=== PATIENT | female | born 1960 | race Caucasian/White ===

== ENCOUNTER 2022-06-08 10:01 | Outpatient (CLI) | payer BC, SELFPAY ==
[2022-06-08 10:24] LABS: Basophils Absolute Auto 0.08 K/mm3 (0.00-0.10); Eosinophils Absolute Auto 0.07 K/mm3 (0.02-0.50); Eosinophils Percent Auto 0.9 % (1.0-6.0); Hematocrit 40.4 % (35.0-49.0); Hemoglobin 13.4 g/dL (12.0-15.0); Immature Granulocyte Absolute 0.05 K/mm3 (0.00-0.00); Immature Granulocyte Percent A 0.6 % (0.0-0.0); Lymphocytes Absolute Auto 1.82 K/mm3 (1.10-4.50); Lymphocytes Percent Auto 22.5 % (18.0-42.0); Mean Corpuscular HGB Conc 33.2 g/dL (32.0-36.0); Mean Corpuscular Hemoglobin 30.2 pg (27.0-31.0); Mean Corpuscular Volume 91.2 fL (78.0-102.0); Mean Platelet Volume 9.2 fl (9.2-11.8); Monocytes Absolute Auto 0.62 K/mm3 (0.10-0.90); Monocytes Percent Auto 7.7 % (2.0-11.0); Neutrophils Absolute Auto 5.5 K/mm3 (1.7-7.2); Neutrophils Percent Auto 67.3 % (50.0-70.0); Platelet Count Result 409 K/mm3 (150-420); Red Blood Count 4.43 M/mm3 (4.20-5.40); Red Cell Distribution Width 12.3 % (11.6-14.4); White Blood Count 8.1 K/mm3 (4.8-10.8)
[2022-06-08 11:27] LABS: Alanine Aminotransferase 28 U/L (14-59); Albumin Level 3.8 g/dL (3.4-5.0); Alkaline Phosphatase 70 U/L (46-116); Anion Gap 10 mmol/L (8-16); Aspartate Amino Transferase 23 U/L (15-37); Bilirubin,Total 0.5 mg/dL (0.00-1.00); Blood Urea Nitrogen 15 mg/dL (7-18); Calcium 9.4 mg/dL (8.5-10.1); Carbon Dioxide 27 mmol/L (21-32); Chloride 100 mmol/L (98-108); Creatine Kinase 66 U/L (26-192); Estimated Glomerular Filt Rate > 60; Glucose 77 mg/dL (70-99); Osmolality Calculated 283 mOsm/kg (285-295); Potassium 4.8 mmol/L (3.5-5.1); Sodium 137 mmol/L (136-145); Troponin I 6.4 ng/L (0.00-60.4)
== END 2022-06-08 10:02 | disposition home or self-care (01) ==
PROVIDERS: PCP Internal Medicine; Visit Provider Internal Medicine
DX: R07.9 Chest pain, unspecified (principal)
CPT/HCPCS: 36415; 80053; 82550; 82553; 84484; 85025

== ENCOUNTER 2023-06-22 12:18 | Outpatient (CLI) | payer MEDICARE, SELFPAY ==
--- NOTE | 2023-06-22 12:37 | ECG_ITS ---
Measurements Intervals [facility] Rate: 71 P: 62 WI: 188 QRS: 3 QRSD: 119 T: 9 QT: 401 QTc: 438 Interpretive Statements SINUS RHYTHM MODERATE INTRAVENTRICULAR CONDUCTION DELAY [110+ ms QRS DURATION] MINIMAL VOLTAGE CRITERIA FOR LVH, CONSIDER NORMAL VARIANT [MEETS CRITERIA IN ONE OF: R(aVL), S(V1), R(V5), R(V5/V6)+S(V1)] NO PREVIOUS ECG AVAILABLE FOR COMPARISON Electronically Signed On 06-22-2023 14:04:48 CDT by Macy Jones M.D.
[2023-06-22 13:04] LABS: Anion Gap 7 mmol/L (8-16); Blood Urea Nitrogen 17 mg/dL (7-18); Calcium 9.7 mg/dL (8.5-10.1); Carbon Dioxide 30 mmol/L (21-32); Chloride 99 mmol/L (98-108); Estimated Glomerular Filt Rate > 60; Glucose 90 mg/dL (70-99); Osmolality Calculated 283 mOsm/kg (285-295); Potassium 4.9 mmol/L (3.5-5.1); Sodium 136 mmol/L (136-145)
== END 2023-06-22 12:19 | disposition home or self-care (01) ==
PROVIDERS: Orthopaedic Surgery; PCP Internal Medicine
DX: Z01.818 Encounter for other preprocedural examination (principal); I49.8 Other specified cardiac arrhythmias; I45.89 Other specified conduction disorders; I10 Essential (primary) hypertension; R94.31 Abnormal electrocardiogram [ECG] [EKG]
CPT/HCPCS: 36415; 80048; 93005

== ENCOUNTER 2023-08-29 14:44 | Outpatient (CLI) | payer MEDICARE, SELFPAY ==
--- NOTE | ~2023-08-29 | CT_ITS ---
EXAMINATION: CT LE LT wo con DATE: 08/29/2023 15:19 INDICATION: Left knee osteoarthritis. Preop planning. TECHNIQUE: Computed tomography (CT) of the left lower limb was performed without intravenous contrast . Automated exposure control and iterative reconstruction technique were employed. The dose-length pr oduct was 1792.19 mGy-cm. COMPARISON: Left knee radiographs 08/24/2023 FINDINGS: Bone alignment is normal. No fracture. There is mild left hip osteoarthritis. Left knee dem onstrates severe osteoarthritis of the medial and patellofemoral compartments and moderate osteoarthr itis of lateral compartment. There is a moderate-sized knee joint effusion with loose bodies. There i s polyarticular osteoarthritis of the foot, severe at talonavicular joint. IMPRESSION: 1. Severe left knee osteoarthritis. 2. Moderate-sized left knee joint effusion with loose bodies. Reviewed, dictated and finalized at location E.
== END 2023-08-29 14:45 | disposition home or self-care (01) ==
PROVIDERS: PCP Internal Medicine; Visit Provider Orthopaedic Surgery
DX: M17.12 Unilateral primary osteoarthritis, left knee (principal); M25.462 Effusion, left knee
CPT/HCPCS: 73700

== ENCOUNTER 2023-08-30 11:36 | Outpatient (CLI) | payer MEDICARE, SELFPAY ==
[2023-08-30 11:59] LABS: Urine Cotinine NEGATIVE (Negative)
[2023-08-30 12:03] LABS: Basophils Absolute Auto 0.07 K/mm3 (0.00-0.10); Basophils Percent Auto 0.9 % (0.0-1.0); Eosinophils Absolute Auto 0.06 K/mm3 (0.02-0.50); Eosinophils Percent Auto 0.7 % (1.0-6.0); Hematocrit 38.6 % (35.0-42.0); Hemoglobin 12.9 g/dL (11.7-13.8); Immature Granulocyte Absolute 0.03 K/mm3 (0.00-0.00); Immature Granulocyte Percent A 0.4 % (0.0-0.0); Immature Platelet Fraction Pct 3.4 % (1.0-7.0); Lymphocytes Absolute Auto 1.68 K/mm3 (1.10-4.50); Lymphocytes Percent Auto 20.8 % (18.0-42.0); Mean Corpuscular HGB Conc 33.4 g/dL (32.0-36.0); Mean Corpuscular Hemoglobin 30.4 pg (27.0-31.0); Mean Platelet Volume 10.4 fl (9.2-11.8); Monocytes Absolute Auto 0.78 K/mm3 (0.10-0.90); Monocytes Percent Auto 9.7 % (2.0-11.0); Neutrophils Absolute Auto 5.4 K/mm3 (1.7-7.2); Neutrophils Percent Auto 67.5 % (50.0-70.0); Platelet Count Result 230 K/mm3 (150-420); Red Blood Count 4.24 M/mm3 (4.20-5.40); Red Cell Distribution Width 13.4 % (11.6-14.4); White Blood Count 8.1 K/mm3 (4.8-10.8)
[2023-08-30 12:07] LABS: Appearance Urine Clear (Clear); Bilirubin Urine Negative (Negative); Blood Urine Negative (Negative); Color Urine Yellow (Yellow); Glucose Urine UA Negative (Negative); Ketones Urine Negative (Negative); Leukocyte Esterase Ur Trace (Negative); Nitrate Urine Negative (Negative); Protein Urine Negative (Negative); Urobilinogen Urine 0.2 mg/dL (0.2-1.0)
[2023-08-30 12:18] LABS: Add Urine Microscopic? YES; Bacteria Urine 2+ /hpf; RBC Urine None seen /hpf (0-2); Squamous Epithelial Cell Urine Moderate /hpf (Few); WBC Urine 0-5 /hpf (0-3)
[2023-08-30 12:19] LABS: Mucus Urine Moderate /lpf
[2023-08-30 13:19] LABS: Alanine Aminotransferase 24 U/L (14-59); Albumin Level 3.7 g/dL (3.4-5.0); Alkaline Phosphatase 76 U/L (46-116); Anion Gap 9 mmol/L (8-16); Aspartate Amino Transferase 26 U/L (15-37); Bilirubin,Total 0.8 mg/dL (0.00-1.00); Blood Urea Nitrogen 14 mg/dL (7-18); Calcium 9.6 mg/dL (8.5-10.1); Carbon Dioxide 27 mmol/L (21-32); Chloride 97 mmol/L (98-108); Cholesterol 246 mg/dL (0-200); Estimated Glomerular Filt Rate > 60; Glucose 83 mg/dL (70-99); HDL Direct 122 mg/dL (40-60); LDL Cholesterol Calculated 115 mg/dL (<130); Osmolality Calculated 275 mOsm/kg (285-295); Sodium 133 mmol/L (136-145); Thyroid Stimulating Hormone 1.42 uIU/mL (0.36-3.74); Total Protein 7.2 g/dL (6.4-8.2); Triglycerides 43 mg/dL (0-150)
== END 2023-08-30 11:37 | disposition home or self-care (01) ==
LOC: CHSLAB 11:38
PROVIDERS: PCP Internal Medicine; Visit Provider Orthopaedic Surgery
DX: Z01.818 Encounter for other preprocedural examination (principal); M54.16 Radiculopathy, lumbar region; M17.12 Unilateral primary osteoarthritis, left knee; I10 Essential (primary) hypertension; E78.5 Hyperlipidemia, unspecified
CPT/HCPCS: 80053; 80061; 80307; 81001; 84443; 85025; 85055

== ENCOUNTER 2023-09-06 15:38 | Outpatient (CLI) | payer MEDICARE, SELFPAY ==
--- NOTE | ~2023-09-06 | XR_ITS ---
Right Knee Technique: AP, lateral, and sunrise views were obtained. Clinical History: Pain Findings: No fracture or dislocation is seen. Osseous alignment is anatomic. Moderate tricompartmenta l degenerative spurring is present. There are probable small loose bodies at the posterior aspect of the knee. Moderate joint effusion is seen. Impression: Moderate tricompartmental degenerative change, with probable small posterior loose bodies and moderat e joint effusion. Reviewed, dictated and finalized at location M. 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
== END 2023-09-06 15:39 | disposition home or self-care (01) ==
PROVIDERS: PCP Internal Medicine; Visit Provider Internal Medicine
DX: M25.561 Pain in right knee (principal)
CPT/HCPCS: 73562

== ENCOUNTER 2023-11-07 09:58 | Outpatient (CLI) | payer MEDICARE, SELFPAY ==
[2023-11-07 11:17] LABS: Basophils Absolute Auto 0.1 K/mm3 (0.0-0.1); Basophils Percent Auto 0.7 % (0.2-1.2); Eosinophils Absolute Auto 0.1 K/mm3 (0-0.3); Eosinophils Percent Auto 1.2 % (0-4.4); Hematocrit 41.1 % (37.0-47.0); Hemoglobin 13.1 g/dL (12.0-15.0); Immature Granulocyte Absolute 0.02 K/mm3 (0.00-0.031); Immature Granulocyte Percent A 0.2 % (0-0.5); Lymphocytes Absolute Auto 2.27 K/mm3 (0.9-3.2); Lymphocytes Percent Auto 26.2 % (18.3-44.2); Mean Corpuscular HGB Conc 31.9 g/dl (32-36); Mean Corpuscular Hemoglobin 29.3 pg (26-34); Mean Corpuscular Volume 91.9 fl (80-100); Mean Platelet Volume 9.1 fl (7.4-10.4); Monocytes Absolute Auto 0.8 K/mm3 (0.1-0.6); Monocytes Percent Auto 9.1 % (2.6-8.5); Neutrophils Absolute Auto 5.4 K/mm3 (1.3-6.7); Neutrophils Percent Auto 62.6 % (45.5-73.1); Platelet Count Result 374 k/mm3 (150-375); Red Blood Count 4.47 M/mm3 (4.2-5.4); Red Cell Distribution Width 12.4 % (11.5-14.5); White Blood Count 8.7 K/mm3 (4.5-10.0)
[2023-11-07 11:26] LABS: Albumin Level 4.5 g/dL (3.5-5.1); Estimated Glomerular Filt Rate > 60; Glucose 93 mg/dL (65-110); Urine Cotinine NEGATIVE
[2023-11-07 11:51] LABS: Hemoglobin A1C 5.2 % (<5.7)
== END 2023-11-07 09:59 | disposition home or self-care (01) ==
LOC: ANHSURGERY 10:04
PROVIDERS: PCP Internal Medicine; Visit Provider Orthopaedic Surgery
DX: Z01.818 Encounter for other preprocedural examination (principal); M17.12 Unilateral primary osteoarthritis, left knee
CPT/HCPCS: 80307; 82040; 82565; 82947; 83036; 85025; 87081

== ENCOUNTER 2023-11-24 00:20 | Day surgery (SDC) | payer MEDICARE, SELFPAY ==
[2023-11-07 10:22] VITALS: BP 148/67; PULSE 62; RESP 16; TEMP 36.8; O2SAT 99; BMI 27.3
--- NOTE | 2023-11-07 10:38 | PC.NURSE ---
Report to the Outpatient Waiting Room, entrance under the green pavilion located off [facility], at time __6:00AM on date _11/24/23 . Planned Procedure Time: __7:30AM . Time changes happen often and if your time is changed the preop area will call you the afternoon before. - You and your visitor will be asked to self-screen and do not enter if you have any COVID symptoms. - A mask is optional within the hospital at this time. Patients may have clear liquids (water, carbonated beverages, clear teas, apple juice) until 3 hours prior to surgery with a maximum of 20 ounces. - No food from midnight until time of surgery. Take the following medications with a SIP of water the morning of surgery: ___VERAPAMIL, HYDROCODONE NEEDED DO NOT STOP ANY OF YOUR OTHER PRESCRIPTION MEDICATIONS PRIOR TO SURGERY ?EXCEPT THE FOLLOWING Medications to discontinue per physician ____HOLD NSAIDS(IBUPROFEN) AND VITAMINS/SUPPLEMENTS 7 DAYS PRE-OP PER DR DAN- LAST DOSE 11/16/23 Please no make-up, nail scottish, hairspray, perfume, deodorant, or body powder the day of surgery. No jewelry (including any body piercings) or valuables the day of surgery, leave them at home. Please take a shower or bath the night before, or the morning of, surgery with an antibacterial soap. Wear comfortable, loose fitting clothing. Children are encouraged to wear pajamas. - Jewelry must be removed prior to entering the operating room. Rings and piercings that are not removed may be cut off. - The hospital will not accept responsibility for valuables. - Please leave all valuables, including medications, at home the day of surgery. If you are going home after surgery, a licensed local [place] truck driver must drive you home. - NO public transportation without another adult if you receive anesthesia. - We recommend that an adult stay with you for 24 hours following discharge. - We also recommend that you do not drive, make important decision, drink alcoholic beverages, or take any drugs that were not prescribed by your health care provider for at least 24 hours after your discharge time. Follow any additional instructions given to you from your surgeon. If you or anyone in your household have experienced Covid symptoms in the past week, please notify your surgeon or the nurse liaison at the phone number below for possible testing. Telephone instructions given to _PATIENT and asked if any additional questions and then verbalized understanding. Patient advised to call surgeon office or pre surgery nurse liaison [phone] if any additional questions.
--- NOTE | 2023-11-23 13:32 | WPDANESEPPF ---
Anes - Initial Pre Proc Eval Procedure: Operation Date: 11/24/23 07:30 Proposed Procedures p Left Custom Total Knee Arthroplasty - Henry Hurtado MD Date/Time: 11/23/23 13:32 Surgeon: Henry Hurtado MD Pre Op Diagnosis: Prim O A Lt Knee Patient Data Age: 63 Gender: F Height: 1.58 m Weight: 68.5 kg Last Vital Signs Temp 36.8 C 11/07/23 10:22 Pulse 62 11/07/23 10:22 Resp 16 11/07/23 10:22 BP 148/67 H 11/07/23 10:22 Pulse Ox 99 11/07/23 10:22 O2 Del Method Room Air 11/07/23 10:22 Allergies Allergy/AdvReac Type Severity Reaction Status Date / Time quinine AdvReac Severe CHILLS, Verified 11/24/23 06:53 NAUSEA AND VOMITING Contrast Media Allergy Severe ANAPHYLAXIS Uncoded 11/24/23 06:53 duloxetine AdvReac Nausea Uncoded 11/24/23 06:53 Home Medications Medication Instructions Recorded Confirmed Type acyclovir 200 mg capsule 400 mg PO BID PRN Outbreak 08/11/23 11/07/23 History atenolol 50 mg tablet 50 mg PO HS 08/11/23 11/07/23 History atorvastatin 10 mg tablet 10 mg PO HS 08/11/23 11/07/23 History ibuprofen 200 mg capsule 800 mg PO Q6H PRN Pain 08/11/23 11/07/23 History magnesium oxide 400 mg PO BID 08/11/23 11/07/23 History omeprazole 40 mg capsule,delayed 40 mg PO BID 08/11/23 11/07/23 History release verapamil 120 mg 24 hr 120 mg PO QAM 08/11/23 11/24/23 History capsule,extended release zolpidem 10 mg tablet 10 mg PO HS 08/11/23 11/07/23 History hydrocodone 5 mg-acetaminophen 325 1 tablet PO Q8H PRN Pain 11/07/23 11/07/23 History mg tablet Patient hx anesthesia problems: post op nausea/vomiting Family hx anesthesia problems: none Results Review: All pre-operative results and documents have been reviewed as part of the pre-operative evaluation. [facility] Past Medical History Medical History (Updated 11/23/23 @ 13:33 by Geoffrey Coley DO) Anesthesia complication issues with waking up from general anesthesia previously Cervical vertebral fusion DVT (deep venous thrombosis) History of blood clots History of bruising easily History of gastric ulcer History of stress test Hyperlipidemia Hypertension Nondisplaced fracture of neck of right radius TYE (obstructive sleep apnea) Surgical History Surgical History (Updated 11/23/23 @ 13:33 by Geoffrey Coley DO) H/O cervical discectomy History of arthroscopy of left knee History of laminectomy History of lumbar fusion History of tubal ligation Hx laparoscopic cholecystectomy Family History Family History Father Hypertension Cerebrovascular accident Hyperlipidemia Peripheral vascular disease Hemiballismus Mother Hyperlipidemia Hypertension Osteoarthritis Sibling Hypertension Hyperlipidemia Asthma Anxiety Social History Social History (Updated 11/07/23 @ 14:18 by Teresita Victoria MA) Smoking status: Never smoker Alcohol intake: current Drinks per week: 3 Substance use: never Substance use type: does not use Do You Feel Safe in your Home?: Yes Lack of Transportation: YES Lack of Food: Never True Current Housing: I Have Housing Concerned About Future Housing: No Difficulty Paying Gas/Electric Bills: No Difficulty Paying for Meds: No Currently Unemployed: No Education: High School Diploma/GED Difficulty w/ Childcare or Family Care: No Living arrangements: with family Additional living arrangements comments: [place] Spiritual care concerns: No Anes - Eval Final PreProcedure Day of Procedure 11/23/23 13:32 Patient weight: overweight Heart: regular rate and rhythm Lungs: clear to auscultation Airway: Mallampati scale class II Neurological: alert and oriented Last oral intake: >/= 8 hours ASA classification: III Emergent: no Anesthetic plan: proceed Anesthesia type and monitoring: general LMA and standard monitoring Results Review: All pre-operative resu
[2023-11-24] VITALS (18 sets, daily range): BP systolic 130–164; BP diastolic 53–78; PULSE 55–80; RESP 11–16; TEMP 36.2–37.1; O2SAT 91–100
--- NOTE | ~2023-11-24 | XR_ITS ---
EXAMINATION: [id number] DATE: 11/24/2023 10:00 INFECTIOUS DISEASE PHYSICIAN INDICATION: Left knee arthroplasty TECHNIQUE: 2 views left knee FINDINGS: There is a left total knee arthroplasty in expected position. Subcutaneous gas with fluid and air in the joint and overlying skin chito are consistent with recent surgery. No evidence of pe riprosthetic fracture. IMPRESSION: 1. Recent left total knee arthroplasty. Reviewed, dictated and finalized at location L. CTIOUS DISEASE PHYSICIAN
[2023-11-24] MEDS: ACETAMINOPHEN 500 MG TABLET 1000 MG PO ×3 (06:35→18:10)
[2023-11-24] MEDS: LACTATED RINGERS 1,000 ML 30 ML IV CONT ×2 (06:35→09:44)
[2023-11-24] MEDS: TRANEXAMIC ACID 1,000MG/ISO100 1,000 MG/100 ML BAG 200 MG IVPB (06:35)
--- NOTE | 2023-11-24 07:17 | WPDHPUPDATE1 ---
History and Physical Update Update Date/Time: 11/24/23 07:17 History and Physical has been reviewed, including an updated exam of the patient. There are NO changes in the patient's condition. Risks, benefits, and alternatives have been discussed and questions answered. Patient agrees to proceed with procedure.
[2023-11-24] MEDS: ceFAZolin 2 GM/D5W 50 ML 2 GM/50 ML BAG IVPB ×2 (07:26→16:53)
--- NOTE | 2023-11-24 07:29 | WPDANESPNB ---
Anes - Peripheral Nerve Block Date/Time: 11/24/23 07:29 I have discussed with the patient/family/POA the placement of a peripheral nerve block for post-operative pain management, including associated risks, benefits, complications, and side effects. Alternative methods of post-operative analgesia were detailed. Questions were solicited and answers provided to the satisfaction of the patient/family/POA. Time-Out: A pre-procedural Time-Out was completed immediately before starting the procedure and confirmed: Patient Identification, Site, Procedure, Patient Position and the Availability of Requisite Equipment. Clinical Indications: Acute post-operative pain management requested by the operative surgeon. Nerve Block Insertion Note Anes-nerve block: adductor canal left Patient position: supine Skin prep: chlorhexidine Needle: 22 gauge, stimulating, insulated echogenic needle. Needle length: 80 mm Technique: ultrasound Injectate: bupivacaine 0.5% with epi 5 mcg/ml (30cc - no epi) Observations: tolerated well Complications: none Procedure start time:: 715 Procedure end time:: 719
[2023-11-24] MEDS: GENTAMICIN BONE CEMENT REFOBACIN 1 EACH TOPICAL (08:45)
--- NOTE | 2023-11-24 09:34 | W.PM.PROC2 ---
Procedure Note - Detailed Date of Procedure 11/24/23 Pre-op Diagnosis Prim O A Lt Knee Post-op Diagnosis Same Procedure Performed Left total knee arthroplasty. Surgeon Henry Hurtado MD Anesthesia General and Regional (Subsartorial block.) Description of Procedure Preoperative antibiotics were given. The limb was prepped and draped in the usual sterile fashion with a well-padded tourniquet high on the thigh. The limb was exsanguinated and the tourniquet inflated to 300 mmHg. A longitudinal incision was created just medial to the patella. A trivector approach to the knee was performed. Arthrotomy was taken down through the joint capsule. No significant releases were initially taken. The femur was exposed and the F1 jig was applied. The coring tool was used to remove the cartilage for the F2 jig to sit flush with the bone. The jig was pinned and the distal cut carefully taken. Caliper measurements confirmed appropriate bony resections according to the preoperative templated plan. The F4 cutting jig for the femur was applied, at the standard rotation. The AP and anterior chamfer cuts were taken. The F5 jig was applied and the posterior chamfer cuts were taken. The tibia was prepared using the T1 jig, after removing cartilage for the jig contact points. Proper alignment was checked with the alignment justin. The tibia was cut using the T1u guide. Gap balancing was performed. Gap measurements were taken and the knee was trialed. Excellent alignment and soft tissue balancing was confirmed. The posterior cruciate ligament was recessed along the proximal tibia. The patella was cut for resurfacing. Three lug holes were drilled. Meniscal remnants were removed. The trial components were assembled. Excellent range of motion and proper soft tissue balancing were confirmed throughout the full range of motion. Patellar tracking was excellent. The knee was copiously irrigated periodically throughout the procedure. The real implants were cemented into position. Excess cement was carefully removed. The wound was closed in layers with interrupted #1 Vicryl suture, #2 strata fix suture, 2-0 strata fix suture, 3-0 strata fix suture. Steri-Strips placed on the skin with the knee flexed. Sterile bulky dressing applied. The patient was brought to the recovery room in stable condition. There were no complications. Implants [employer] total knee arthroplasty. Cemented. Cruciate retaining. 7 mm insert. 32 mm round patella. Estimated Blood Loss 50 Tourniquet Time Total Tourniquet Time: 72 Drains No Complications No immediate complications Condition Stable Disposition PACU [facility] Billing Surgery - Charge Forward: Surgery Billing
[2023-11-24] MEDS: fentaNYL CITRATE INJ (*CRX) 100 MCG/2 ML VIAL 25 MCG IV PUSH (10:00)
--- NOTE | 2023-11-24 11:49 | ADMGEN ---
This patient, Dayana Hudson, was admitted to 2 Medical Room 259-01. Patient/family oriented to hospital policies and general routines including ID bracelet, bed and alarms, visiting hours, pain management, procedures, bathroom and other care routines, personal items, smoking policy, room service/diet, and visiting hours. Information on how to activate the Rapid Response Team has been discussed. Patient/Family are encouraged to report perceived risks to care and to ask questions if they do not understand what they are told or what they should do.
[2023-11-24] MEDS: PANTOPRAZOLE 40 MG TABLET PO ×2 (12:52→20:48)
[2023-11-24] MEDS: MAGNESIUM OXIDE 400 MG TABLET PO ×2 (12:52→16:52)
[2023-11-24] MEDS: SENNA/DOCUSATE SODIUM TABLET 2 TAB PO ×2 (12:53→16:52)
[2023-11-24] MEDS: FAMOTIDINE 20 MG TABLET PO ×2 (12:53→20:48)
[2023-11-24] MEDS: oxyCODONE HCL (*CRX) 5 MG TAB IR 10 MG PO (12:54)
[2023-11-24] MEDS: polyethylene glycoL 3350 17 GM POWD.PACK PO (12:55)
[2023-11-24] MEDS: MELOXICAM 7.5 MG TABLET PO ×2 (12:55→16:53)
[2023-11-24] MEDS: ONDANSETRON INJ 4 MG/2 ML VIAL IV PUSH ×2 (15:41→20:30)
[2023-11-24] MEDS: oxyCODONE HCL (*CRX) 5 MG TAB IR PO ×2 (17:01→20:49)
[2023-11-24] MEDS: ZOLPIDEM TARTRATE (*CRX) 5 MG TABLET 10 MG PO (20:47)
[2023-11-24] MEDS: atenoloL 50 MG TABLET PO (20:48)
[2023-11-24] MEDS: ATORVASTATIN 10 MG TABLET PO (20:48)
[2023-11-25] MEDS: ceFAZolin 2 GM/D5W 50 ML 2 GM/50 ML BAG IVPB ×2 (00:01→08:47)
[2023-11-25 04:00] VITALS: BP 138/57; PULSE 72; RESP 14; TEMP 36.6; O2SAT 96
[2023-11-25 05:42] LABS: Basophils Percent Auto 0.1 % (0.2-1.2); Eosinophils Percent Auto 0.1 % (0-4.4); Hematocrit 32.7 % (37.0-47.0); Hemoglobin 10.6 g/dL (12.0-15.0); Immature Granulocyte Absolute 0.05 K/mm3 (0.00-0.031); Immature Granulocyte Percent A 0.4 % (0-0.5); Lymphocytes Absolute Auto 2.05 K/mm3 (0.9-3.2); Lymphocytes Percent Auto 14.7 % (18.3-44.2); Mean Corpuscular HGB Conc 32.4 g/dl (32-36); Mean Corpuscular Hemoglobin 29.3 pg (26-34); Mean Corpuscular Volume 90.3 fl (80-100); Mean Platelet Volume 9.5 fl (7.4-10.4); Monocytes Absolute Auto 1.1 K/mm3 (0.1-0.6); Neutrophils Absolute Auto 10.7 K/mm3 (1.3-6.7); Neutrophils Percent Auto 76.7 % (45.5-73.1); Platelet Count Result 297 k/mm3 (150-375); Red Blood Count 3.62 M/mm3 (4.2-5.4); Red Cell Distribution Width 12.3 % (11.5-14.5); White Blood Count 13.9 K/mm3 (4.5-10.0)
[2023-11-25] MEDS: ACETAMINOPHEN 500 MG TABLET 1000 MG PO ×2 (05:56)
[2023-11-25 06:17] LABS: Anion Gap 4 mmol/L (8-16); Blood Urea Nitrogen 16 mg/dL (7-17); Calcium 8.5 mg/dL (8.4-10.2); Carbon Dioxide 24 mmol/L (22-30); Chloride 103 mmol/L (98-107); Estimated CRCL calculation 63 ml/min; Estimated Glomerular Filt Rate > 60; Glucose 105 mg/dL (65-110); Sodium 131 mmol/L (137-145)
[2023-11-25] MEDS: SENNA/DOCUSATE SODIUM TABLET 2 TAB PO (08:44)
[2023-11-25] MEDS: MAGNESIUM OXIDE 400 MG TABLET PO (08:44)
[2023-11-25] MEDS: VERAPAMIL HCL ER 120 MG TABLET PO (08:44)
[2023-11-25] MEDS: predniSONE 5 MG TABLET PO (08:45)
[2023-11-25] MEDS: FAMOTIDINE 20 MG TABLET PO (08:45)
[2023-11-25] MEDS: PANTOPRAZOLE 40 MG TABLET PO (08:45)
[2023-11-25] MEDS: APIXABAN 2.5 MG TABLET PO (08:45)
[2023-11-25] MEDS: MELOXICAM 7.5 MG TABLET PO (08:46)
[2023-11-25] MEDS: polyethylene glycoL 3350 17 GM POWD.PACK PO (08:47)
--- NOTE | 2023-11-25 08:54 | PM.DS ---
DS: Admitting Diagnosis Discharge Date 11/25/23 Admitting Diagnosis OA knee Left DS: Discharge Diagnosis Discharge Diagnosis (1) Status post total left knee replacement: Code(s): Z96.652 - Presence of left artificial knee joint Status: Acute Assessment and Plan: Postop day 1: Left total knee arthroplasty. Patient tolerated procedure well. No complications. Pain manageable with pain medication. No numbness or tingling. We had a lengthy discussion regarding postoperative wound care, limitations, expectations, and exercises. Patient shows good understanding. She has had initial physical therapy and is tolerating it well. DVT prophylaxis: Patient is high risk for blood clot. Will start patient on Elliquis for 1 month. 2.5 mg BID for 2 weeks then 5 mg BID for 2 weeks. Compression socks. Frequent walks. Pain medication: Percocet. Prednisone. Meloxicam. Nausea: Zofran. Extended Antibiotic: Keflex Patient has followup appointment with Dr. Hurtado in 3 weeks. DS: Summary Hospital Course Reason for hospitalization: Total knee arthroplasty Hospital Course: Patient tolerated procedure well. Has had initial PT/OT. Status at Discharge Functional status at discharge: uses cane/walker Overall status at discharge: patient is progressing back to baseline Time Spent with Patient Time attestation: Total time spent providing and/or coordinating discharge services: Exam Narrative: 63-year-old overweight female. Resting comfortably in chair. Alert and oriented x3. No acute distress. Wearing compression socks bilaterally. Dressing intact without drainage. Mild swelling. No ecchymosis. No erythema. No hematoma. Range of motion limited due to pain. Calf nontender. Neurologic status intact. No varicosities. Distal pulses palpable. DS: Data Data Completed and Pending Labs on day of discharge: Labs from last 24 hours 11/25/23 05:02 WBC 13.9 H RBC 3.62 L Hgb 10.6 L Hct 32.7 L MCV 90.3 MCH 29.3 MCHC 32.4 RDW 12.3 Plt Count 297 MPV 9.5 Immature Gran % (Auto) 0.4 Neut % (Auto) 76.7 H Lymph % (Auto) 14.7 L [place] % (Auto) 8.0 Eos % (Auto) 0.1 Baso % (Auto) 0.1 L Lymph # (Auto) 2.05 [place] # (Auto) 1.1 H Eos # (Auto) 0.0 Baso # (Auto) 0.0 Abs Immat Gran (auto) 0.05 H Absolute Neuts (auto) 10.7 H Absolute Nucleated RBC 0.0 Nucleated RBC % 0.0 Sodium 131 L Potassium 4.0 Chloride 103 Carbon Dioxide 24 Anion Gap 4 L BUN 16 Creatinine 0.70 Estim Creat Clear Calc 63 Estimated GFR > 60 Glucose 105 Calcium 8.5 Discharge Plan Discharge Patient Disposition: Home, Self-Care Discharge Instructions: See green instruction sheets Stand Alone Forms: General Discharge Instructions Follow-up/Referrals: Priya Mack PA [Physician Hand I Tube Bender] - Discharge Medications: New meloxicam 15 mg tablet 15 mg PO DAILY Qty: 30 0RF Rx Instructions: Cut in half. Take 1/2 in morning and 1/2 at night. Take with food. Stop if stomach upset. oxycodone-acetaminophen 5-325 mg tablet 1 - 2 tablet PO Q4-6H MDD 6 PRN (Reason: pain) Qty: 30 0RF prednisone 5 mg tablet 5 mg PO DAILY 21 Days Qty: 21 0RF Eliquis 2.5 mg tablet 2.5 mg PO BID 14 Days Qty: 28 0RF cephalexin 500 mg capsule 500 mg PO TID 14 Days Qty: 42 0RF ondansetron 4 mg tablet,disintegrating 4 mg PO Q8H Qty: 30 0RF Continued atorvastatin 10 mg tablet 10 mg PO HS omeprazole 40 mg capsule,delayed release(DR/EC) 40 mg PO BID zolpidem 10 mg tablet 10 mg PO HS acyclovir 200 mg capsule 400 mg PO BID PRN (Reason: Outbreak) atenolol 50 mg tablet 50 mg PO HS magnesium oxide 400 mg magnesium capsule 400 mg PO BID verapamil 120 mg capsule,ext rel. pellets 24 hr 120 mg PO QAM Held ibuprofen 200 mg capsule 800 mg PO Q6H PRN (Reason: Pain) Hold Instructions: Resume on 12/22/23. Hold
[2023-11-25 09:21] VITALS: BP 130/60; PULSE 70; RESP 15; TEMP 36.5; O2SAT 96
[2023-11-25] MEDS: ONDANSETRON INJ 4 MG/2 ML VIAL IV PUSH (09:30)
[2023-11-25] MEDS: oxyCODONE HCL (*CRX) 5 MG TAB IR PO (09:52)
== END 2023-11-25 11:00 | disposition home or self-care (01) ==
LOC: ANHSURGERY 07:26 → ANH2MED 11:38
PROVIDERS: Physician Assistant Surgical; PCP Internal Medicine; Visit Provider Orthopaedic Surgery
PROC: (CPT 27447; principal; 2023-11-24 07:30)
DX: M17.12 Unilateral primary osteoarthritis, left knee (principal); G89.18 Other acute postprocedural pain; I10 Essential (primary) hypertension; E78.5 Hyperlipidemia, unspecified; G47.33 Obstructive sleep apnea (adult) (pediatric); Z86.718 Personal history of other venous thrombosis and embolism; Z98.1 Arthrodesis status
CPT/HCPCS: 27447; 64447; 36415; 73560; 80048; 85025; 86850; 86900; 86901; 97110; 97116; 97161; 97165; 97535; A9270; C1713; C1776; J0171; J0690; J1100; J1170; J1885; J2250; J2270; J2405; J2704; J2795; J3010; J7120; J7512

== ENCOUNTER 2024-01-11 08:28 | Outpatient (CLI) | payer MEDICARE, SELFPAY ==
--- NOTE | ~2024-01-11 | XR_ITS ---
EXAMINATION: XR knee LT 3V DATE: 01/11/2024 08:50 INDICATION: Aftercare following left total knee arthroplasty TECHNIQUE: Weight bearing AP, lateral and sunrise views of the left knee were obtained COMPARISON: None. FINDINGS: Left total knee arthroplasty with patellar resurfacing which appears well seated in near-anatomic ali gnment. No periprosthetic lucency to suggest loosening or infection. No fracture. There is mild soft tissue swelling about the knee and small left knee joint effusion. IMPRESSION: 1. Left total knee arthroplasty with small knee joint effusion but no acute osseous abnormality. Reviewed, dictated and finalized at location B. IMPRESSION: 1. Left total knee arthroplasty with small knee joint effusion but no acute oss eous abnormality.
== END 2024-01-11 08:29 | disposition home or self-care (01) ==
LOC: ANHIMG 08:31
PROVIDERS: PCP Internal Medicine; Visit Provider Orthopaedic Surgery
DX: M25.462 Effusion, left knee (principal); Z47.1 Aftercare following joint replacement surgery
CPT/HCPCS: 73562

== ENCOUNTER 2024-04-13 08:55 | Outpatient (CLI) | payer MEDICARE, SELFPAY ==
[2024-04-13 09:39] LABS: Appearance Urine Clear (Clear); Bilirubin Urine Negative (Negative); Blood Urine Negative (Negative); Color Urine Light Yellow (Yellow); Glucose Urine UA Negative (Negative); Ketones Urine Negative (Negative); Leukocyte Esterase Ur Negative LEU/UL (Negative); Nitrate Urine Negative (Negative); Protein Urine Negative (Negative); Urobilinogen Urine 0.2 mg/dL (0.2-1.0)
[2024-04-13 10:03] LABS: Add Urine Microscopic? NO; Alanine Aminotransferase 23 U/L (14-59); Albumin Level 3.5 g/dL (3.4-5.0); Alkaline Phosphatase 73 U/L (46-116); Anion Gap 10 mmol/L (4-12); Aspartate Amino Transferase 24 U/L (15-37); Bilirubin,Total 0.4 mg/dL (0.00-1.00); Blood Urea Nitrogen 14 mg/dL (7-18); Calcium 9.2 mg/dL (8.5-10.1); Carbon Dioxide 26 mmol/L (21-32); Chloride 99 mmol/L (98-108); Estimated Glomerular Filt Rate > 60; Glucose 78 mg/dL (70-99); Osmolality Calculated 279 mOsm/kg (285-295); Potassium 4.7 mmol/L (3.5-5.1); Sodium 135 mmol/L (136-145)
[2024-04-13 10:10] LABS: Basophils Absolute Auto 0.06 K/mm3 (0.00-0.10); Basophils Percent Auto 1.4 % (0.0-1.0); Eosinophils Absolute Auto 0.13 K/mm3 (0.02-0.50); Hematocrit 36.9 % (35.0-42.0); Hemoglobin 12.3 g/dL (11.7-13.8); Immature Granulocyte Absolute 0.06 K/mm3 (0.00-0.00); Immature Granulocyte Percent A 1.4 % (0.0-0.0); Lymphocytes Absolute Auto 1.09 K/mm3 (1.10-4.50); Lymphocytes Percent Auto 25.5 % (18.0-42.0); Mean Corpuscular HGB Conc 33.3 g/dL (32-36); Mean Corpuscular Hemoglobin 29.8 pg (27.0-31.0); Mean Corpuscular Volume 89.3 fL (78.0-102.0); Mean Platelet Volume 9.3 fl (9.2-11.8); Monocytes Absolute Auto 0.42 K/mm3 (0.10-0.90); Monocytes Percent Auto 9.8 % (2.0-11.0); Neutrophils Absolute Auto 2.51 K/mm3 (1.70-7.20); Neutrophils Percent Auto 58.9 % (50.0-70.0); Platelet Count Result 386 K/mm3 (150-420); Red Blood Count 4.13 M/mm3 (4.20-5.40); Red Cell Distribution Width 12.6 % (11.6-14.4); White Blood Count 4.3 K/mm3 (4.8-10.8)
[2024-04-15 02:53] LABS: Vitamin D 25 Hydroxy 73 ng/mL (30-100)
== END 2024-04-13 08:56 | disposition home or self-care (01) ==
LOC: CHSLAB 08:58
PROVIDERS: PCP Internal Medicine; Visit Provider Internal Medicine
DX: I10 Essential (primary) hypertension (principal); N39.0 Urinary tract infection, site not specified; E55.9 Vitamin D deficiency, unspecified
CPT/HCPCS: 36415; 80053; 81003; 82306; 85025

== ENCOUNTER 2024-08-09 00:06 | Day surgery (SDC) | payer MEDICARE, SELFPAY ==
[2024-07-23 13:58] VITALS: BMI 26.9
[2024-08-09 09:14] VITALS: BP 138/73; PULSE 77; RESP 18; TEMP 36.3; O2SAT 99; BMI 26.6
[2024-08-09] MEDS: LACTATED RINGERS 1,000 ML 150 ML IV CONT (09:19)
--- NOTE | 2024-08-09 09:35 | WPDANESEPPF ---
Anes - Initial Pre Proc Eval Procedure: Operation Date: 08/09/24 10:00 Proposed Procedures p Esophagogastroduodenoscopy - Bernard Meadows DO Date/Time: 08/09/24 09:35 Surgeon: Bernard Meadows DO Pre Op Diagnosis: GERD, Family hx of colon cancer Patient Data Age: 64 Gender: F Height: 1.6 m Weight: 68.4 kg Last Vital Signs Temp 97.4 F L 08/09/24 09:14 Pulse 77 08/09/24 09:14 Resp 18 08/09/24 09:14 BP 138/73 08/09/24 09:14 Pulse Ox 99 08/09/24 09:14 O2 Del Method Room Air 08/09/24 09:14 Allergies Allergy/AdvReac Type Severity Reaction Status Date / Time quinine AdvReac Severe CHILLS, Verified 08/09/24 09:13 NAUSEA AND VOMITING Contrast Media Allergy Severe ANAPHYLAXIS Uncoded 08/09/24 09:13 duloxetine AdvReac Nausea Uncoded 08/09/24 09:13 Home Medications Medication Instructions Recorded Confirmed Type acyclovir 200 mg capsule 400 mg PO BID PRN Outbreak 08/11/23 08/09/24 History atenolol 50 mg tablet 50 mg PO HS 08/11/23 08/09/24 History atorvastatin 10 mg tablet 10 mg PO HS 08/11/23 08/09/24 History ibuprofen 200 mg capsule 800 mg PO Q6H PRN Pain 08/11/23 08/09/24 History magnesium oxide 400 mg PO BID 08/11/23 08/09/24 History omeprazole 40 mg capsule,delayed 40 mg PO BID 08/11/23 08/09/24 History release verapamil 120 mg 24 hr 120 mg PO QAM 08/11/23 08/09/24 History capsule,extended release zolpidem 10 mg tablet 10 mg PO HS 08/11/23 08/09/24 History hydrocodone 5 mg-acetaminophen 325 1 tablet PO Q8H PRN Pain 11/07/23 08/09/24 History mg tablet ondansetron 4 mg disintegrating 4 mg PO Q8H #30 tabs 11/25/23 08/09/24 Rx tablet Patient hx anesthesia problems: none Family hx anesthesia problems: none Results Review: All pre-operative results and documents have been reviewed as part of the pre-operative evaluation. PMFSH Past Medical History Medical History Anesthesia complication issues with waking up from general anesthesia previously Cervical vertebral fusion DVT (deep venous thrombosis) History of blood clots History of bruising easily History of gastric ulcer History of stress test Hyperlipidemia Hypertension Nondisplaced fracture of neck of right radius TYE (obstructive sleep apnea) Surgical History Surgical History H/O cervical discectomy History of arthroscopy of left knee History of laminectomy History of lumbar fusion History of tubal ligation Hx laparoscopic cholecystectomy Status post total left knee replacement (~11/24/23) Family History Family History Father Hypertension Cerebrovascular accident Hyperlipidemia Peripheral vascular disease Hemiballismus Mother Hyperlipidemia Hypertension Osteoarthritis Sibling Hypertension Hyperlipidemia Asthma Anxiety Social History Social History Smoking status: Never smoker Alcohol intake: current Drinks per week: 3 Substance use: never Substance use type: does not use Do You Feel Safe in your Home?: Yes Lack of Transportation: No Lack of Food: Never True Current Housing: I Have Housing Concerned About Future Housing: No Difficulty Paying Gas/Electric Bills: No Difficulty Paying for Meds: No Currently Unemployed: No Education: High School Diploma/GED Difficulty w/ Childcare or Family Care: No Living arrangements: with family Additional living arrangements comments: HUSB Spiritual care concerns: No Anes - Eval Final PreProcedure Day of Procedure 08/09/24 09:35 Patient weight: normal Heart: regular rate and rhythm Lungs: clear to auscultation Airway: Mallampati scale class II Neurological: alert and oriented Last oral intake: >/= 8 hours ASA classification: III Emergent: no Anesth
--- NOTE | 2024-08-09 09:38 | PM.IMHP ---
H&P: HPI History of Present Illness Date/Time: 08/09/24 09:38 Chief Complaint: GERD, upper abdominal pain, fam hx colon cancer Narrative: this is a 64-year-old woman who presents for EGD and colonoscopy. She did not tolerate the prep very well yesterday and vomited most of it up. She also does not feel like her stools are coming out very clear yet. She has a family history of colon cancer in her sister and multiple uncles. She has been experiencing frequent fullness feeling this and upper abdominal discomfort as well as GERD symptoms. The colonoscopy will be rescheduled until she can take a better prep but she still wants to proceed with EGD. Review of Systems Review of Systems: All systems reviewed & are unremarkable except as noted in HPI and below Constitutional: Constitutional: Denies chills, Denies fever(s), Denies headache(s) and Denies weight loss Eyes: Eyes: Denies change in vision ENT: Denies dizziness, Denies headache(s), Denies neck mass and Denies throat swelling Cardiovascular: Cardiovascular: Denies chest pain, Denies lightheadedness and Denies dyspnea Respiratory: Respiratory: Denies cough, Denies dyspnea and Denies wheezing Gastrointestinal: Gastrointestinal: Denies abdominal pain, Denies change in bowel habits, Denies nausea and Denies vomiting Genitourinary: Genitourinary: Denies hematuria and Denies dysuria Musculoskeletal: Musculoskeletal: Reports as per HPI Integumentary/Breasts: Skin/Breast: Reports as per HPI Neurologic: Denies dizziness and Denies headache(s) Allergic/Immunologic: Allergic/Immunologic: Denies throat swelling and Denies wheezing [facility] Past Medical History Medical History Anesthesia complication issues with waking up from general anesthesia previously Cervical vertebral fusion DVT (deep venous thrombosis) History of blood clots History of bruising easily History of gastric ulcer History of stress test Hyperlipidemia Hypertension Nondisplaced fracture of neck of right radius TYE (obstructive sleep apnea) Surgical History Surgical History H/O cervical discectomy History of arthroscopy of left knee History of laminectomy History of lumbar fusion History of tubal ligation Hx laparoscopic cholecystectomy Status post total left knee replacement (~11/24/23) Family History Family History Father Hypertension Cerebrovascular accident Hyperlipidemia Peripheral vascular disease Hemiballismus Mother Hyperlipidemia Hypertension Osteoarthritis Sibling Hypertension Hyperlipidemia Asthma Anxiety Social History Social History Smoking status: Never smoker Alcohol intake: current Drinks per week: 3 Substance use: never Substance use type: does not use Do You Feel Safe in your Home?: Yes Lack of Transportation: No Lack of Food: Never True Current Housing: I Have Housing Concerned About Future Housing: No Difficulty Paying Gas/Electric Bills: No Difficulty Paying for Meds: No Currently Unemployed: No Education: High School Diploma/GED Difficulty w/ Childcare or Family Care: No Living arrangements: with family Additional living arrangements comments: [facility]USB Spiritual care concerns: No Meds Home Medications and Allergies Home Medications Medication Instructions Recorded Confirmed Type acyclovir 200 mg capsule 400 mg PO BID PRN Outbreak 08/11/23 08/09/24 History atenolol 50 mg tablet 50 mg PO HS 08/11/23 08/09/24 History atorvastatin 10 mg tablet 10 mg PO HS 08/11/23 08/09/24 History ibuprofen 200 mg capsule 800 mg PO Q6H PRN Pain 08/11/23 08/09/24 History magnesium oxide 400 mg PO BID 08/11/23 08/09/24 History omeprazole 40 mg capsule,delayed 40 mg PO BID 08/11/23 08/09/24 History r
[2024-08-09] MEDS: BENZOCAINE (*SP) 60 ML SPRAY CAN (HURRICAINE) 1 SPRAY MUCOUS MEM (09:46)
[2024-08-09 09:56] VITALS: BP 121/57; PULSE 72; RESP 17; O2SAT 98
[2024-08-09 10:06] VITALS: BP 124/57; PULSE 64; RESP 20; O2SAT 98
[2024-08-09 10:16] VITALS: BP 130/64; PULSE 70; RESP 23; O2SAT 100
== END 2024-08-09 10:32 | disposition home or self-care (01) ==
PROVIDERS: PCP Internal Medicine; Visit Provider Surgery
PROC: 0DJ08ZZ Inspection of Upper Intestinal Tract, Via Natural or Artificial Opening Endoscopic (ICD-10-PCS; CPT 43235; principal; 2024-08-09 10:00)
DX: K29.80 Duodenitis without bleeding (principal); K21.9 Gastro-esophageal reflux disease without esophagitis; K31.7 Polyp of stomach and duodenum; Z80.0 Family history of malignant neoplasm of digestive organs; I10 Essential (primary) hypertension; E78.5 Hyperlipidemia, unspecified; G47.33 Obstructive sleep apnea (adult) (pediatric); Z87.11 Personal history of peptic ulcer disease; Z86.718 Personal history of other venous thrombosis and embolism; Z98.1 Arthrodesis status
CPT/HCPCS: 43239; 88305; J2003; J2704; J7120

== ENCOUNTER 2024-11-26 09:04 | Outpatient (RCR) | payer MEDICARE, SELFPAY ==
--- NOTE | 2024-11-26 10:21 | PTOPEVAL1 ---
Assessment and note entered by Francois Edmonds Evaluation Information Assessment Status Evaluation Diagnosis s/p triple arthrodesis left ICD-10 Condition Codes (PT) Pain in left ankle and joints of left foot M25.572 Onset 09/11/24 Subjective Information Pt. reports she underwent left ankle surgery on . Pt. reports that she was non weight bearing initially. She states that she began with 25% weight bearing on 11/09/24. She states that she is still wearing her walking boot. She is uncertain if she can begin to wean from the boot. She states that she is 100% weight bearing currently. She reports that her pain is consistent and remains a 4/10. She states that she has returned to driving. She reports that her goal is to return to walking normal and without her boot. Reported Pain Level Pain Score 4: Self Report Assessment PT Clinical Summary Pt. is a 64 year old female s/p triple arthrodesis . She presents with impaired l.e. strength, impaired gait, impaired ROM, pain and functional decline. Continued skilled PT is indicated in order to improve these areas to allow the pt. to be able to complete all IADL's with improved comfort and efficiency. Plan of Care Interventions Electrical Stimulation,Gait Training,Hot Pack/Cold Pack,Manual Therapy,Neuro Re-education,Patient/ Caregiver Education,Therapeutic Activities, Therapeutic Exercise PT Services Indicated Yes Treatment Frequency and 2x/week x 12 visits Duration These treatments will address the objective and functional deficits as defined above. The patient will be advanced safely and appropriately in order for the patient to progress towards his/her prior level of function. Additional exercises will be introduced and as well as a comprehensive home exercise program upon discharge, if needed, ?to ensure carryover of functional gains achieved in the clinic. This treatment plan has been reviewed and agreement upon by the patient.
--- NOTE | 2024-11-26 10:22 | OPREHPOC ---
Outpatient Therapy Plan of Care This is a Multidisciplinary Plan of Care that may contain components documented by all disciplines (PT, OT, and ST.) PT Problem 1 PT Problem #1 Knowledge Deficit PT Goal 1 Goal / Goal Update Pt. will be independent with a HEP focusing on strength, gait and mobility. Target Visit 2 PT Problem 2 PT Problem #2 Impaired Range of Motion PT Goal 1 Goal / Goal Update Pt. will achieve 10 degrees left ankle dorsiflexion Pt. will achieve 50 degrees left ankle plantarflexion active ROM. Target Visit 12 PT Problem 3 PT Problem #3 Impaired Gait PT Goal 1 Goal / Goal Update Pt. will be able to discontinue use of the boot Pt. will ambulates with equal left and right stance time without use of the walking boot. Pt. will complete the 6 minute walk test for a distance of 1200'. Target Visit 12 PT Problem 4 PT Problem #4 Impaired Strength PT Goal 1 Goal / Goal Update Pt. will be able to complete 5 single limb heel raises on the left. Target Visit 12
--- NOTE | 2025-01-07 10:23 | PTOPDC ---
Assessment and note entered by Francois Edmonds Evaluation Information Assessment Status Discharge Diagnosis s/p triple arthrodesis left ICD-10 Condition Codes (PT) Pain in left ankle and joints of left foot M25.572 Onset 09/11/24 Subjective Information Pt. reports that her left ankle is doing much better. She notices that she can go up and down steps with step over step pattern. She still gets pain with long distance walking. She reports that she is most limited by right knee pain and is scheduled for right knee replacement in February. Reported Pain Level Pain Score 1: Self Report Assessment PT Clinical Summary Pt. demonstrates improvements in mobility and ROM. She continues to present with weakness, but participation is limited due to right knee pain. At this time she has been provided a comprehensive HEP and will be discharged from our care Plan of Care PT Services Indicated No
== END 2025-01-07 17:51 | disposition home or self-care (01) ==
LOC: CHSPT 09:04
DX: M25.572 Pain in left ankle and joints of left foot (principal)
CPT/HCPCS: 97110; 97140; 97161; 97530

== ENCOUNTER 2024-11-27 12:44 | Outpatient (CLI) | payer MEDICARE, SELFPAY ==
--- NOTE | ~2024-11-27 | CT_ITS ---
EXAMINATION: CT LE RT wo con DATE: 11/27/2024 13:07 INDICATION: Right knee osteoarthritis. Preoperative planning. TECHNIQUE: Computed tomography (CT) of the right lower limb was performed without intravenous contras t. Automated exposure control and iterative reconstruction technique were employed. The dose-length p roduct was 1777.09 mGy-cm. COMPARISON: Right knee radiograph 09/06/2023 FINDINGS: There is mild right hip osteoarthritis. No fracture. There is anterior subluxation of tibia with respect to distal femur, consistent with tear of anterior cruciate ligament. There is moderate tricompartmental osteoarthritis of the knee. There is a large knee joint effusion with loose bodies. There is a small Tanner's cyst. There is severe fatty atrophy of the gastrocnemius and soleus muscles. IMPRESSION: 1. Moderate right knee osteoarthritis. 2. Complete tear of anterior cruciate ligament. 3. Large knee joint effusion with loose bodies. 4. Small Tanner's cyst. 5. Severe fatty atrophy of the gastrocnemius and soleus muscles. Reviewed, dictated and finalized at location A. TING MACHINE OPERATOR HELPER
--- NOTE | ~2024-11-27 | XR_ITS ---
Right Shoulder Technique: AP and scapular Y views were obtained. Clinical History: Pain Findings: No fracture or dislocation is seen. Osseous alignment is anatomic. The glenohumeral joint d emonstrates mild degenerative change. Soft tissues are unremarkable. Impression: Mild glenohumeral joint degenerative change. Reviewed, dictated and finalized at [facility]. CTOR RECREATION Impression: Mild glenohumeral joint degenerative change.
--- OUTSIDE RECORDS SUMMARY | 2024-11-27 13:18 | XMS_ITS | Clinical Summary ---
Author Organization [facility] Address [address] [place] [address] Care Team Providers Care Automatic Log Cut Off Sawyer Name Role Phone Unavailable Primary Care Provider Unavailabl e Source Comments [facility] [employer],non-owned Affiliates and Associated Physician Practices is amultiple site organization consisting of ambulatory clinics and hospital sitesin [place], [place]. This disclosure is being madepursuant to the Care Everywhere program and may not contain all information available regarding this patient. Last updated 18.[facility] [employer] Social History Tobacco Use Types Packs/Day Years Used Date Smoking Tobacco: Never Assessed Sex and Gender Information Value Date Recorded Sex Assigned at Not on file Gender Identity Not on file Sexual Orientation Not on file Plan of Treatment Health Maintenance Due Date Last Done Comments BONE DENSITY TESTING 1958 COLOGUARD (AGES 45-75) - COL ON CA SCREENING 1958 COLON MONITORING 1958 COLONOSCOPY - COLON CA SCREENING 1958 CT COLONOGRAPHY - COLON CA SCREENING 1958 Colorectal Cancer Screening 1958 FIT - COLON CA SCREENING 1958 FLEX SIG - COLON CA SCREENING 1958 LIPID TESTING 1958 MAMMOGRAM 1958 MEDICARE AWV ? 12 MONTHS 1958 HEPATITIS C SCREENING 06/03/1976 DTAP/TDAP/TD VACCINES (1 - Tdap) 1977 PNEUMOCOCCAL VACCINE 50+ (1 of 1 - PCV) 2008 ZOSTER VACCINE (1 of 2) 2008 COVID-19 VACCINE (1 - 2023-2 5 season) 2024 INFLUENZA VACCINE (#1) 2024 DEPRESSION SCREENING 10/31/2024 Respiratory Syncytial Virus (RSV) Vaccine Pt: or over 60 yrs (1 - 1-dose 75+ series) 2033 HEPATITIS B VACCINE Aged Out No longe r eligible based on patient's age to complete this topic HIB VACCINE Aged Out No longer eligi ble based on patient's age to complete this topic HPV VACCINE Aged Out No longer eligi ble based on patient's age to complete this topic MENINGOCOCCAL (Group B) VACCINE Aged Out No longer eligible based on patient's age to complete this topic MENINGOCOCCAL VACCINE Aged Out No nancy jeannine eligible based on patient's age to complete this topic
--- OUTSIDE RECORDS SUMMARY | 2024-11-27 13:18 | XMS_ITS | Referral Summary ---
Author Organization [facility] Address [address] [place] [place] [address] Care Team Providers Care Auto Parts Clerk Name Role Phone Unavailable Primary Care Provider Unavailabl e Source Comments [facility],non-owned Affiliates and Associated Physician Practices is amultiple site organization consisting of ambulatory clinics and hospital sitesin [place], [place], [place] and [place]. This disclosure is being madepursuant to the Care Everywhere program and may not contain all information available regarding this patient. Last updated 18.[facility] Social History Tobacco Use Types Packs/Day Years Used Date Smoking Tobacco: Never Assessed Sex and Gender Information Value Date Recorded Sex Assigned at Not on file Gender Identity Not on file Sexual Orientation Not on file Plan of Treatment Not on file
--- OUTSIDE RECORDS SUMMARY | 2024-11-27 13:18 | XMS_ITS | Clinical Summary ---
Author Organization [facility] Address [address] [place] [address] Phone Care Team Providers Care Electrical Sign Wirer Name Role Phone Jamar Hastings MD Primary Care Provider [phone] Allergies Active Allergy Reactions Criticality Noted Date Comments Iodinated Contrast Media Anaphylaxis High 05/10/2019 Quinine Nausea and Vomiting, Other (See Comments),Dizziness Medium 05/10/2019 chills Medications verapamil (VERELAN) 120 mg Sustained Release 24 hour capsule Take 120 mg by mouth daily. Active pravastatin (PRAVACHOL) 20 mg tablet Take 20 mg by mouth daily at bedtime. Active atenolol (TENORMIN) 50 mg tablet Take 50 mg by mouth daily at bedtime. Active zolpidem (AMBIEN) 10 mg tablet Take 10 mg by mouth daily at bedtime. Active melatonin 10 mg Tablet Take 10 mg by mouth daily at bedtime. Active omeprazole (PriLOSEC) 40 mg Capsule, Delayed Release(E.C.) Take 40 mg by mouth 2 times daily. Active magnesium oxide 400 mg magnesium Capsule Take 400 mg by mouth daily at bedtime. Active acyclovir (ZOVIRAX) 400 mg tablet Take 400 mg by mouth 1 time daily as needed (cold sores). Active HYDROcodone-rosemarie taminophen (NORCO) 10-325 mg TabletIndicatio ns:S/P lumbar fusion Take 1 Tablet by mouth every 4 hours as needed for Pain. Max Daily Amount: 6 Tablets 40 Tablet 05/23/2019 Active Social History Tobacco Use Types Packs/Day Years Used Date Smoking Tobacco: Never Smokeless Tobacco: Never Alcohol Use Standard Drinks/Week Comments Yes 0 (1 standard drink = 0.6 oz pur e alcohol) social Comments No Sex and Gender Information Value Date Recorded Sex Assigned at Not on file Legal Sex Female 11:37 AM CDT Gender Identity Not on file Sexual Orientation Not on file Last Filed Vital Signs Vital Sign Reading Time Taken Comments Blood Pressure 93/54 05/23/2019 2:49 PM CDT Pulse 74 05/23/2019 2:49 PM CDT Temperature 37.3 ??C (99.2 ??F) 05/23/2019 2:49 PM CD T Respiratory Rate 16 05/23/2019 2:49 PM CDT Oxygen Saturation 95% 05/23/2019 2:49 PM CDT Inhaled Oxygen Concentration - - Weight 78 kg (172 lb) 05/23/2019 6:08 AM CDT Height 162.6 cm (5' 4 ) 05/21/2019 9:32 AM CDT Body Mass Index 29.52 05/21/2019 9:32 AM CDT Plan of Treatment Health Maintenance Due Date Last Done Comments DTAP/TDAP/TD VACCINES (1 - Tdap) 1977 BREAST CANCER SCREENING 1998 COLORECTAL SCREENING 2003 Colorectal Cancer Screening 2003 FIT-DNA Q 3 years 2003 FIT/FOBT Q 1 year 2003 Flex Sig/CT Colonography Q 5 years 2003 PNEUMOCOCCAL VACCINE 65+ YEARS (1 of 1 - PCV) 06/08/20 08 ZOSTER VACCINE (1 of 2) 2008 OSTEOPOROSIS SCREENING 2023 INFLUENZA VACCINE (#1) 2024 RSV VACCINE (60+ or ) (1 - 1-dose 75+ series) 2033 Medical Devices Implanted Type Area Senior It Specialist Device Identifier Shelf Expiration Date Model / Serial / Lot Cage Elevate X-Dunia 28x9mm [id number] - [id number] Implanted:Qty: 1 on 05/21/2019 by Manjeet Marie MD at [facility] N/A: Spine Lumbar [employer]ANEK 03/02/2027 [id number] / / [id number] Sealant Floseal 5ml [id number] - [id number] Implanted:Qty: 1 on 05/21/2019 by Manjeet Marie MD at [facility] Sealant N/A: Spine Lumbar DOSS- [employer] 10/11/2020 [id number] / / [id number] Lucy Dbm 8x10cm [id number] - [id number] Implanted:Qty: 1 on 05/21/2019 by Manjeet Marie MD at [facility] N/A: Spine Lumbar [employer] 12/25/2021 [id number] / [id number] / Matrix Dura Regenerative Durepair 1in [id number] - [id number] Implanted:Qty: 1 on 05/21/2019 by Manjeet Marie MD at [facility] N/A: Spine Lumbar [employer] 03/30/2021 [id number] / / [id number] Screw Set Implanted:Qty: 6 on 05/21/2019 by Manjeet Marie MD at [facility] N/A: Spine Lumbar [id number] / / Description:item add c.s load [id number] Screw 7.5x40mm Implanted:Qty: 3 on 05/21/2019 by Manjeet Marie MD at [facility] N/A: Spine Lumbar [id number] / / Description:item add c.s load [id number] Screw 6.5x40mm Implanted:Qty: 3 on 05/21/2019 by Manjeet Marie MD at [facility] N/A: Spine Lumbar [id number] / / Description:item add c.s load [id number] Screw 6.5x40mm Implanted:Qty: 3 on 05/21/2019 by Manjeet Marie MD at [facility] N/A: Spine Lumbar [id number] / / Description:item add c.s load [id number] Donte 80mm Implanted:Qty: 1 on 05/21/2019 by Manjeet Marie MD at [facility] N/A: Spine Lumbar [id number] / / Description:item add c.s load [id number] Donte 50mm Implanted:Qty: 1 on 05/21/2019 by Manjeet Marie MD at [facility]/A: Spine Lumbar [id number] / / Description:item add c.s load [id number] Insurance Advance Directives For more information, please contact: [phone] * Full Code (Latest Code Status on File) Date Activated Date Inactivated Comments 05/21/2019 5:01 PM 05/23/2019 5:35 PM Care Teams Electrical Sign Wirer Relationship Specialty Start Date End Date Jamar Hastings MD [address] [place] [address] PCP - General Internal Medicine 04/20/19
--- OUTSIDE RECORDS SUMMARY | 2024-11-27 13:18 | XMS_ITS | Continuity of Care Document ---
Author Organization [facility] Address [address] [place] [address] [address] [place] [address] Phone Care Team Providers Care Network Field Engineer Name Role Phone Jamir Morgan Unavailable Unavailable Procedures Procedure Date Office/outpatient Visit, [facility] Advance Directives Directive Yes / No Effective Date File Name No Information Encounters Encounter Description Practice Location Reason(s) For Visit Diagnoses Date Provider Providers Copied on Encounter Office/outpat ient Visit, [facility], [address], [place], [place], [id number], [place] tel:[phone] [facility] No Information [address]ie. [address] , [address], [place], [address], [place]. tel:[phone] Family History Family Member Type Diagnosis Age At Onset No Information Payers Payer name Insurance type Covered democrat ID Lluvia kraft(s) [facility] CI [id number] Social History Type Description Quantity Date Captured Comments Sex Female Smoking Status No Information Chief Complaint And Reason For Visit No Information Reason For Referral Reason For Referral No Information History Of Present Illness Encounter Date Complaint History Of Prese nt Illness No Information Functional Status Date Functional Assessmen t No Information Instructions Date Instruction Additional Infor mation No Information Assessments Type Assessment Date No Information Patient Care Teams Name Effective Dates (start - stop) Status Members No Information
--- OUTSIDE RECORDS SUMMARY | 2024-11-27 13:18 | XMS_ITS | Data Portability ---
Author Organization [place] - [facility] [employer], Main Office Address [address] [place] [address] Care Team Providers Care Administrative Support Clerk Name Role Phone TRISTEN LESTER Primary Care Provider [phone] TRISTEN LESTER Referring Provider [phone] Assessment Encounter Date Assessment Date Assessment LastModified by Organization Details LastModified Time 06/17/2023 06/17/2023 impression: Patient has significant the bilateral carpal tunnel syndrome with significant constant numbness in the right index and thumb and marked increase in two-point discrimination these 2 fingers as well as the long finger of the right hand. She has had gradually worsening symptoms over the last 3 years or more despite wearing night splints. She does not appear to have evidence of superimposed cervical radiculopathy based on absence of symptoms with provocative maneuvers of her cervical spine today. I have offered her carpal tunnel release surgery. I would recommend starting with the right hand and then when it is convenient for her half the left side done as well. I discussed with her that return of sensation is a little bit unpredictable when there is such dense numbness however partial return is typical and of functional level of sensation would be expected this may take 6 months or longer to achieve her maximal return of sensation. I have discussed the pathophysiology of carpal tunnel syndrome with her and explained that releasing the transverse carpal tunnel ligament and the distal volar forearm fascia will hopefully prevent elevation in pressure that impedes blood flow circulating in the nerve in the future should quickly alleviate her nocturnal symptoms and hopefully allow nerve healing over time. I have discussed risks of surgery with her in detail including the risk of infection and nerve injury and ongoing tendinitis problems. Patient does have tendinitis of the flexor carpi radialis tendon. Hopefully this will spontaneously improve with the rest associated with recovery from her carpal tunnel release surgery. If not we can consider a cortisone injection her other treatments. Avoid ibuprofen for 7 days before surgery. 45 minutes were spent in total care this patient with more than half the time spent in [id number] care. Not available 06/19/2023 21:53:19 07/11/2023 07/11/2023 HPI: Patient returns. She is 12 days out from right carpal tunnel release. She has noted significant improvement her symptoms since surgery. She still has a slight bit of tingling in radial index finger and radial thumb. Rest of her fingers feel very normal. Physical exam: Patient has full range of motion of her right fingers as well as her wrist. Stitches removed. The very superior aspect of the incision has gapped do To the dry epidermis. I advised patient this is typical and will happen.. The deeper dermis layers of all sealed are nicely and look pink and healthy. I advised her that this will peel back around the incision and should heal very well. Impression: Patient is 12 days out recommend tunnel release. She has had significant improvement of her symptoms already and I think she will have an excellent result senior living. She wishes that left 1 done as soon as she can. We will work on setting up the surgery. Not available 07/11/2023 16:09:31 08/03/2023 08/03/2023 HPI: Patient returns. She is 2 weeks out from left carpal tunnel release. She states her fingers doing much better after surgery. She has almost complete normal sensation left hand. She still has a little bit of numbness in the right fingers but this is also improving. Physical exam: Stitches removed. Patient had same drying of the superficial skin on the left as she did on the right. The lying layers are sealed up nicely. There is no redness or warmth noted. Patient states that she has normal sensation to the tips of all of her fingers on left hand at this point. Impression: Patient is doing well 2 weeks out left carpal tunnel release. She may continue to use the hand as her comfort allows. At this point will plan seeing her back as needed. Not available 08/03/2023 16:13:17 Plan of Treatment Reminders Order Date Submit Date Provider Last Modified By Organization Details Last Modified Time Details Appointments None recorde d. Lab None recorde d. Referral None recorde d. Procedures None recorde d. Surgeries None recorde d. Imaging XR, wrist 023 06/17/20 23 [email or web address] [facility], [address], [place], [address], 3 10:19:55 Medication Orders None recorde d. Patient TargetsNo targets recorded. Patient InstructionsNo instructions recorded. Reason for Referral None Reported. Results Created Date Observation Date Name Description Value Unit Range Abnormal Flag Note LastModifiedBy Organization Detail LastModifiedTime 06/01/2005/25/2023 elect romyo gram + nerve condu ction study No observ ation record ed. [email or web address] Not Available 12/2022 10:56:23 06/17/20 XR, wrist No observ ation record ed. [facility] [address], [place], [address], 06/19/2023 21:44:29 06/23/20 23 06/22/2023 elect felipechacha diogr am No observ ation record ed. [email or web address] [place] [address] [place], [address], 06/23/2023 16:24:08 Result Notes None recorded. Problems Name Problem SNOMED Code Status Onset Date Resolution Date Notes Provider Name and Address Organization Details Recorded Time Closed fracture of head of radius 86797428 Active Not Available [facility] 3 12:44:43 Bilateral wrist pain 8319002221928 9105 Active 2022 CLARISSA Rashid, [facility] [employer] [facility] 3 10:49:29 Bilateral carpal tunnel syndrome 4107660476120 9101 Active 2022 CLARISSA Rashid null, [place] [facility] 3 15:16:58 Carpal tunnel syndrome of right wrist 2897433819741 08 Active 2022 CLARISSA Rashid null, [facility] [employer] [facility] 3 15:17:09 Problem Notes None recorded. Procedures Surgical History Date Name Laterality Status Provider Name and Address Organization Details Recorded Time Back Surgery completed CLARISSA Rashid [facility] 06/17/2023 10:47:52 cervical arthrodesis completed CLARISSA Rashid [facility] 06/17/2023 10:48:21 Knee Surgery completed Cyndee Monahan Horace [facility] 06/17/2023 10:48:27 Imaging Results Imaging Date Name Status LastModified by Organization Details LastModified Time 05/25/2023 electromyogram + nerve conduction study completed [email or web address] Information not available 06/01/2023 10:56:23 06/17/2023 XR, wrist completed [facility] [address], [place], [address], 06/19/2023 21:44:29 06/22/2023 electrocardiogram completed [email or web address] [place] [address] [address] [place], [address], 06/23/2023 16:24:08 Procedure Notes None recorded. Medical Equipment None Reported. Medications Name Sig Start Date Stop Date Status Note LastModified by Organization Details LastModified Time atorvastati n 40 mg tablet Take 1 tablet every day by oral route. active Not Available Not Available No t Available atorvastati n 10 mg tablet active Not Available Not Available Not Available prednisone 20 mg tablet take 1 tablet by mouth once daily for 5 days 06/17 completed Not Available Not Available Not Available acetaminoph en 300 mg-codeine 30 mg tablet 1 TAB(S) ORALLY 3 TIMES PER DAY NEEDED FOR 30 DAYS active Not Available Not Available No t Available omeprazole 40 mg capsule,del ayed release active Not Available Not Available Not Available sulfacetami de sodium 10 % eye drops INSTILL 1 DROP INTO AFFECTED EYE(S) BY OPHTHALMI C ROUTE FOUR TIMES DAILY FOR 1 WEEK 07/11 completed Not Available Not Available Not Available cephalexin 500 mg capsule TAKE 1 CAPSULE BY MOUTH EVERY 6 HOURS active Not Available Not Available No t Available zolpidem 10 mg tablet Take 1 tablet every day by oral route. active Not Available Not Available No t Available atenolol 50 mg tablet active Not Available Not Available No t Available omeprazole active Not Available Not Av ailable Not Available verapamil active Not Available Not Mariana ilable Not Available Vitals Date Recorded Body height Body mass index (BMI) Body weight Provider Name and Address Organization Details Last Updated DateTime 06/17/2023 157.48 cm 28.2 kg/m2 92592.22 g CLARISSA Rashid [facility] [email or web address] [facility] 06/17/2023 10:51:56 Date Recorded Body height Provider Name an d Address Organization Details Last Updated DateTime 07/11/2023 157.48 cm Cyndee Monahan Horace [facility] [employer] [facility] 07/11/2023 15:15:50 Date Recorded Body height Provider Name an d Address Organization Details Last Updated DateTime 08/03/2023 157.48 cm CLARISSA Rashid [facility] [email or web address] [facility] 08/03/2023 14:28:56 Social History Question Answer Notes LastModified by Organizat ion Details LastModified Time Tobacco Smoking Status Never Smoker CLARISSA Rashid [facility] [email or web address] [facility] 06/17/2023 10:47:44 What Is Your Level Of Alcohol Consumption? None [email or web address] Information not available 06/17/2023 Sex: Unknown Functional Status None recorded. Mental Status None recorded. Family History Relationship Description Onset Age of this Age Resolved Age Notes LastModified by Organization Details LastModified Time Father Family history of stroke [email or web address] Not available 2022 10:47:38 Medical History Condition Response ARTHRITIS Y CANCER: SPECIFY Y Gynecological HistoryNo gynecological history recorded. Obstetrics History GPAL:G 0 P 0 0 0 0 Past Encounters Encounter ID Performer Location Encounter Start Date Encounter Closed Date Diagnosis/Indication Diagnosis SNOMED-CT Code Diagnosis ICD10 Code Diagnosis Note [id number] Reese Hicks MD [facility] [address] [place] [address] 06/17/2023 10:04:01 06/20/2023 10:19:54 Bilateral wrist pain 1551762075 4812454 M25.531 M25.570 [id number] DEO Ross [facility] [address] [place], [place] [address] 07/11/2023 15:12:23 07/11/2023 16:24:56 Carpal tunnel syndrome of right wrist 4677468677 16726 G56.01 [id number] DEO Ross [facility] [address] [place] [address] 08/03/2023 14:23:26 08/03/2023 16:31:36 Carpal tunnel syndrome of right wrist 9798856567 89058 G56.01 Health Concerns Section Related Observation LastModified by Organization Detai ls LastModified Time None Recorded Concern Status LastModified by Organization Details LastModified Time None Recorded Advance Directives Directive None Recorded Payers Encounter Date Sequence Insurance Name Policy Number Policy Lees Covered Member ID Lees Member ID Guarantor Name 06/17/2023 1 [place] Dayana Danielle Becca [id number] Dayana Hudson 06/17/2023 2 [facility] [employer] [facility] F (MEDICARE SUPPLEMENT) Dayana Danielle Becca [id number] Dayana Danielle Becca 07/11/2023 1 [place] Dayana Danielle Becca [id number] Dayana Danielle Becca 07/11/2023 2 [facility] - PLAN F (MEDICARE SUPPLEMENT) Dayana Danielle Becca [id number] Dayana Danielle Becca 08/03/2023 1 [place] Dayana Danielle Becca [id number] Dayana M Bintalat 08/03/2023 2 [facility] - PLAN F (MEDICARE SUPPLEMENT) Dayana Danielle Becca [id number] Dayana Hudson Notes Date Note Type Note Provider Name and Address Organization Details Recorded Time 06/17/2023 text/html Patient is a 63-year-old female referred by Dr. Fenton for evaluation of her bilateral hand numbness. She has had symptoms for more than 3 years. The right side is the worst. She has had constant numbness in the right index and thumb for more than 2 or 3 months. Both hands go numb at night. She has been wearing night splints for more than 2 years. They helped early on but no longer. During the day her hands will go numb if she is using them. She also notices a pain in the volar radial aspect of the right wrist. Her past history is significant for cervical fusion several years ago. Occasionally she will get soreness in her left trapezius if she sleeps wrong. She does not notice any numbness or tingling in the upper extremities proximal to her wrists. She had nerve conduction velocity testing done on 05/25/2023 which showed moderately severe right greater than left carpal tunnel syndrome. F-wave latencies for the bilateral median nerve were normal. She used nonsteroidal anti-inflammatory medications years ago. She has developed ulcers on so she avoids these. Occasionally she takes ibuprofen and Tylenol with codeine for her knees. She does take omeprazole 40 mg twice daily. Reese Hicks MD [address] [place] [address], [place], [address], [place] [employer] [facility] 06/19/2023 21:53:32 OBGyn Episode No OBEpisode recorded.
--- OUTSIDE RECORDS SUMMARY | 2024-11-27 13:18 | XMS_ITS | Clinical Summary ---
Author Organization [facility] Address [address] [place] [address]. [place], [place] [address] [place] [address] Care Team Providers Care Attendant Honor Bar Name Role Phone Jamar Hastings MD Primary Care Provider [phone] Active Problems Problem Noted Date Diagnosed Date Arthritis of left ankle 06/26/2024 S/P total knee arthroplasty, left 12/10/2023 Social History Tobacco Use Types Packs/Day Years Used Date Smoking Tobacco: Never Assessed Comments Unknown Sex and Gender Information Value Date Recorded Sex Assigned at Not on file Legal Sex Female 11:25 PM CDT Gender Identity Not on file Sexual Orientation Not on file Plan of Treatment Health Maintenance Due Date Last Done Comments Colorectal Cancer Screening Colonoscopy (10 Years) 1958 Hepatitis C 1976 Mammogram Screening 1998 DTaP, Tdap and Td Vaccines (2 - Td or Tdap) 02/07/2022 02/08/2012 Annual Medicare Wellness Visit 2023 Dexa Scan (General) 2023 Pneumococcal Vaccine: 65+ Years (1 of 1 - PCV) 2023 COVID-19 Vaccine ( - season) 2024 11/04/2022, 11/30/2021, 01/27/2021, Additional history exists Influenza Adult (#1) 2024 08/18/2017 RSV Immunization or 60+ Years (1 - 1-dose 75+ series) 2033 Zoster Vaccines Completed 04/24/2019, 12/29, 12/27/2016 Meningococcal B Vaccine Aged Out No l onger eligible based on patient's age to complete this topic Meningococcal Vaccine Aged Out No nancy jeannine eligible based on patient's age to complete this topic RSV Immunizations Under 20 Months Aged Out No longer eligible based on patient's age to complete this topic Insurance MEDICARE [facility] Care Teams Attendant Honor Bar Relationship Specialty Start Date End Date Jamar Hastings MD [address] [place] [address] PCP - General INTERNAL MEDICINE 07/26/23
--- OUTSIDE RECORDS SUMMARY | 2024-11-27 13:18 | XMS_ITS | Clinical Summary ---
Author Organization [facility] Address [address] [place] [address] Phone Care Team Providers Care Field Map Editor Name Role Phone Jamar Hastings MD Primary Care Provider [phone] Social History Tobacco Use Types Packs/Day Years Used Date Smoking Tobacco: Never Assessed Comments Unknown Sex and Gender Information Value Date Recorded Sex Assigned at Not on file Legal Sex Female 4:29 PM CDT Gender Identity Not on file Sexual Orientation Not on file Plan of Treatment Health Maintenance Due Date Last Done Comments DEXA Bone Density 1960 Hepatitis C Virus (HCV) Screening 1960 Colonoscopy 2003 Colorectal Cancer Screening 2003 Cologuard 2008 Immunochemical Fecal Occult Blood 2008 Mammogram 2008 Pneumococcal Immunization (50+ years) (1 of 1 - PCV) 2008 Influenza Immunization (#1) 2024 08/18/2017 SARS-COV-2 Immunization ( season) 2024 11/04/2022, 11/30/2021, 01/27/2021, Additional history exists Respiratory Syncytial Virus (RSV) Immunization (Adult) (1 - 1-dose 75+ series) 2033 DTaP/Tdap/Td Immunization Discontinued 02/08/2012 TdaP Immunization Completed 02/08/2012 Zoster Immunization Completed 04/24/2019, 01/11/2019, 12/27/2016 Hepatitis B Immunization Aged Out No longer eligible based on patient's age to complete this topic Meningococcal Immunization (ACWY) Aged Out No longer eligible based on patient's age to complete this topic Rotavirus Immunization Aged Out No lo nger eligible based on patient's age to complete this topic Insurance [facility] Care Teams Field Map Editor Relationship Specialty Start Date End Date Jamar Hastings MD [address] [place] [address] PCP - General Internal Medicine 05/10/23
--- OUTSIDE RECORDS SUMMARY | 2024-11-27 13:18 | XMS_ITS | Patient Health Summary ---
Author Organization [facility] Address [address] [address] Care Team Providers Care Tire Changer Name Role Phone Unavailable Primary Care Provider Unavailabl e Note from [facility],non-owned Affiliates and Associated Physician Practices is amultiple site organization consisting of ambulatory clinics and hospital sitesin [place], [place], [place] and [place]. This disclosure is being madepursuant to the Care Everywhere program and may not contain all information available regarding this patient. Last updated 18.[facility] Social History Tobacco Use Types Packs/Day Years Used Date Smoking Tobacco: Never Assessed Sex and Gender Information Value Date Recorded Sex Assigned at Not on file Gender Identity Not on file Sexual Orientation Not on file Procedures * RHEUMATOID FACTOR BLOOD QUANTITATIVE(Performed 10/05/2010) * C-REACTIVE PROTEIN(Performed 10/05/2010) * JALYN BLOOD SCREEN W/REFLEX TITER(Performed 10/05/2010) * ERYTHROCYTE SEDIMENTATION RATE(Performed 10/05/2010) Results * RHEUMATOID FACTOR BLOOD QUANTITATIVE (10/05/2010 5:29 PM MANAGER COPY) Rheumatoid Factor 7.1 <60.0 IU/ml [facility] BLOOD SPECIMEN / Unknown 10/05/2010 5:29 PM MANAGER COPY 10/05/2010 5:29 PM MANAGER COPY Narrative Resulting Agency Comment Performed By [facility] - [facility] ? [address] ? [place] [address] Gray Del Cid MD LAB - CHEMISTRY JU SANZ [facility] [address] [place] [address] * C-REACTIVE PROTEIN (10/05/2010 5:29 PM MANAGER COPY) C-Reactive Protein <0.5 <1.0 mg/dl mg/dl [facility] BLOOD SPECIMEN / Unknown 10/05/2010 5:29 PM MANAGER COPY 10/05/2010 5:29 PM MANAGER COPY Narrative Resulting Agency Comment Performed By [facility] Gray Del Cid MD LAB - CHEMISTRY JU SANZ Performing Organization Address [facility] Co de Phone Number [facility] [address] [place] [address] * JALYN BLOOD SCREEN (10/05/2010 5:29 PM MANAGER COPY) JALYN Negative Negative [facility] BLOOD SPECIMEN / Unknown 10/05/2010 5:29 PM MANAGER COPY 10/05/2010 5:29 PM MANAGER COPY Narrative Resulting Agency Comment Performed By [facility] ? [address] [place] [address] ? [place] [address] Gray Del Cid MD LAB - CHEMISTRY JU SANZ Performing Organization Address [facility] Co de Phone Number [facility] [address] [place] [address] * SED RATE WESTERGREN AUTO (10/05/2010 5:29 PM MANAGER COPY) Erythrocyte Sedimentation Rate Westergren 13 0 - 30 mm/Hr [facility] BLOOD SPECIMEN / Unknown 10/05/2010 5:29 PM MANAGER COPY 10/05/2010 5:29 PM MANAGER COPY Gray Del Cid MD LAB - HEMATOLOGY ORD KRISTI Performing Organization Address [facility] Co de Phone Number [facility] [address] [place] [address]
--- OUTSIDE RECORDS SUMMARY | 2024-11-27 13:18 | XMS_ITS | Encounter Summary ---
Author Organization [facility] Address [address] [place] [address] Phone Care Team Providers Care Furrier Shop Supervisor Name Role Phone Jamar Hastings MD Primary Care Provider [phone] Encounter Details Date Type Department Care Team (Late st Contact Info) Description 11/26/2024 Telephone [facility] Orthopaedic Surgery [address] [place] [address] Donato Hernández ATC Social History Tobacco Use Types Packs/Day Years Used Date Smoking Tobacco: Never Smokeless Tobacco: Never Alcohol Use Standard Drinks/Week Comments Yes 0 (1 standard drink = 0.6 oz pur e alcohol) AUDIT-C Answer Date Recorded Q1: How often do you have a drink containing alc ohol? 2-4 times a month 09/11/2024 Q2: How many drinks containi ng alcohol do you have on a typical day when you are drinking? 1 or 2 09/11/2024 Q3: How often do you have si x or more drinks on one occasion? Never 09/11/2024 Personal Safety Answer Date Recorded Have you ever been in or are you currently in a harmful physical or emotional relationship or is someone making you feel afraid or unsafe? Denies 09/11/2024 Comments Unknown Sex and Gender Information Value Date Recorded Sex Assigned at Not on file Legal Sex Female 1:01 PM INDUSTRIAL RELATIONS COMMISSIONER Gender Identity Not on file Sexual Orientation Not on file documented as of this encounter Miscellaneous Notes * Telephone Encounter - Donato Hernández ATC - 11/26/2024 12:05 PM INDUSTRIAL RELATIONS COMMISSIONER Patient and PT called asking about boot wear. Per last note she should remain in her boot. They were understanding and noted agreement with plan. STRIAL RELATIONS COMMISSIONER documented in this encounter Plan of Treatment Not on file documented as of this encounter Visit Diagnoses Not on filedocumented in this encounter Care Teams Furrier Shop Supervisor Relationship Specialty Start Date End Date Jamar Hastings MD PCP - General 12/04/10 documented as of this encounter
--- OUTSIDE RECORDS SUMMARY | 2024-11-27 13:19 | XMS_ITS | Referral Summary ---
Author Organization [facility] Address [address] [place] [address] Care Team Providers Care Operation Manager Name Role Phone Jamar Hastings MD Primary Care Provider [phone] Encounters Date Type Department Care Team Description 11/26/2024 Telephone [facility] Orthopaedic Surgery [address] [facility] 1st Floor [address] [place] [address] Donato Hernández ATC 11/12/2024 8:45 AM DRY TRANSFER WORKER - 11/12/2024 11:59 PM DRY TRANSFER WORKER Hospital Encounter [facility] Radiology [facility] ([facility]) [address] [place] [address] Left ankle pain, unspecified chronicity Discharge Disposition: Discharge to home or self care 11/12/2024 9:20 AM DRY TRANSFER WORKER Office Visit [facility] Orthopaedic Surgery [address] [facility] 6th [place] [address] [place] [address] Francisco Rowan MD Left ankle pain, unspecified chronicity (Primary Dx); Arthritis of left ankle; Arthritis of left subtalar joint 11/06/2024 Telephone [facility] Orthopaedic Surgery [address] [facility] 1st Floor [address] [place] [address] Donato Hernández ATC 10/18/2024 11:59 AM DRY TRANSFER WORKER - 10/18/2024 11:59 PM DRY TRANSFER WORKER Hospital Encounter [facility] Radiology at [facility] [address] [place] [address] Arthritis of left ankle Discharge Disposition: Discharge to home or self care 10/18/2024 12:00 PM DRY TRANSFER WORKER Office Visit [facility] Orthopaedic Surgery [address] [facility] 1st Floor [address] [place] [address] Francisco Rowan MD Arthritis of left ankle (Primary Dx); Arthritis of left subtalar joint 10/01/2024 9:50 AM DRY TRANSFER WORKER Office Visit [facility] Orthopaedic Surgery [address] [facility] 6th [place] [address] [place] [address] Francisco Rowan MD Arthritis of left subtalar joint (Primary Dx) 09/26/2024 Telephone [facility] Orthopaedic Surgery [facility] 6th [place] [address] [place] [address] BettyDonato elder, ATC 09/25/2024 Telephone [facility] Orthopaedic Surgery [address] [place] [address] 6th [place] [address] [place] [address] BettyDonato elder, ATC 09/14/2024 Telephone [facility] Orthopaedic Surgery [address] [place] [address] Floor [address] [place] [address] BettyDonato elder, ATC 09/11/2024 5:35 AM DRY TRANSFER WORKER - 09/12/2024 10:58 AM [facility] [address] [place] [address] Francisco Rowan MD Arthritis of left subtalar joint (Primary Dx) Discharge Disposition: Discharge to home or self care 09/11/2024 7:30 AM DRY TRANSFER WORKER - 09/11/2024 11:50 AM DRY TRANSFER WORKER Surgery [facility] [address] [place] [address] Francisco Rowan MD Left triple arthrodesis 09/11/2024 7:25 AM DRY TRANSFER WORKER Anesthesia Event [facility] [address] [place] [id number] Js Weinstein MD Brake, Barbara E., NP 09/07/2024 Telephone [facility] Orthopaedic Surgery [address] [facility] 1st Floor [address] [place] [address] Donato Hernández, [facility] from Last 3 Months Allergies Active Allergy Reactions Criticality Noted Date Comments Iodinated Contrast Media Anaphylaxis High 05/10/2019 Ioversol Edema High Other name for loversol is Lay. Quinine Dizziness,Nausea And Vomiting,Other (See comments) Medium 05/10/2019 chills Medications atorvastatin (LIPITOR) 40 mg tabletIndications: hyperlipidemia Take 10 mg by mouth nightly Active acyclovir (ZOVIRAX) 400 mg tabletIndications: Skin/Soft Tissue Infection Take 1 tablet (400 mg total) by mouth daily as needed Active atenoloL (TENORMIN) 50 mg tabletIndications: hypertension Take 1 tablet (50 mg total) by mouth nightly Active magnesium oxide 400 mg magnesium capsuleIndications :hypomagnesemia Take 400 mg by mouth nightly Active melatonin 10 mg tabletIndications: sleep Take 1 tablet (10 mg total) by mouth nightly Active omeprazole (PriLOSEC) 40 mg capsuleIndications :Treatment of Non-Bleeding Gastric Disorder Take 1 capsule (40 mg total) by mouth 2 (two) times a day Active ondansetron ODT (ZOFRAN-ODT) 4 mg disintegrating tablet Take 1 tablet (4 mg total) by mouth every 8 (eight) hours as needed for nausea or vomiting Active verapamil SR (CALAN SR) 240 mg CR tabletIndications: hypertension Take 0.5 tablets (120 mg total) by mouth nightly 4 Active cholecalciferol, vitamin D3, (VITAMIN D3 ORAL)Indications:s upplement Take 2 tablet/capsul e by mouth account manager education before breakfast Active acetaminophen 500 mg capsuleIndications :Pain Take 2 capsules (1,000 mg total) by mouth every 8 (eight) hours 4 Active apixaban (ELIQUIS) 2.5 mg tabletIndications: VTE Prophylaxis Take 1 tablet (2.5 mg total) by mouth 2 (two) times a day 4 Active docusate sodium (COLACE) 100 mg capsuleIndications :constipation Take 1 capsule (100 mg total) by mouth 2 (two) times a day 4 Active oxyCODONE (ROXICODONE) 5 mg immediate release tabletIndications: Pain Take 1 tablet (5 mg total) by mouth every 6 (six) hours as needed for pain 28 tablet Active Active Problems Problem Noted Date Diagnosed Date Arthritis of ankle, left 09/11/2024 Arthritis of left subtalar joint 09/11/2024 Arthritis of left ankle 08/03/2024 Immunizations Name Administration Dates Next Due Influenza, Trivalent, High D ose, Split, Preservative Free, Intramuscular 09/12/2024 Social History Tobacco Use Types Packs/Day Years Used Date Smoking Tobacco: Never Smokeless Tobacco: Never Tobacco Cessation:Counseling Given: Not Answered Alcohol Use Standard Drinks/Week Comments Yes 0 [...] on file Legal Sex Female 1:01 PM DRY TRANSFER WORKER Gender Identity Not on file Sexual Orientation Not on file Last Filed Vital Signs Vital Sign Reading Time Taken Comments Blood Pressure 141/67 09/12/2024 9:00 AM DRY TRANSFER WORKER Pulse 89 09/12/2024 9:00 AM DRY TRANSFER WORKER Temperature 37 ??C (98.6 ??F) 09/12/2024 8:08 AM DRY TRANSFER WORKER Respiratory Rate 20 09/12/2024 8:08 AM DRY TRANSFER WORKER Oxygen Saturation 100% 09/12/2024 9:00 AM DRY TRANSFER WORKER Inhaled Oxygen Concentration - - Weight 69.4 kg (153 lb) 09/11/2024 3:44 PM DRY TRANSFER WORKER Height 160 cm (5' 2.99 ) 09/11/2024 3:44 PM DRY TRANSFER WORKER Body Mass Index 27.11 09/11/2024 3:44 PM DRY TRANSFER WORKER Plan of Treatment Not on file Medical Devices Implanted Type Area Die Mounter Device Identifier Shelf Expiration Date Model / Serial / Lot [employer] Graft Bone Filler Cortical Cancellous Cyro Freezer Arthrocell c Putty Abs-2009-02 - [id number] - [id number] Implanted:Qty: 1 on 09/11/2024 by Francisco Rowan MD at [facility] Left: Ankle [employer] 06/20/2026 ABS-0 5 / [id number] / [id number] [employer] Low Profile Screws 6.7mm 75mm 28mm Self Drill Self Tap Cannulated [id number] - [id number] Implanted:Qty: 1 on 09/11/2024 by Francisco Rowan MD at [facility] Left: Ankle [employer] AR-8967-28 75 / / [employer] Low Profile Screws 4.5mm 38mm Self Drill Self Tap Cannulated Hex [id number] - [id number] Implanted:Qty: 1 on 09/11/2024 by Francisco Rowan MD at [facility] Left: Ankle [employer] AR-8945-38 PT / / [employer] Low Profile Screws 4.5mm 34mm Self Drill Self Tap Cannulated Hex [id number] - [id number] Implanted:Qty: 1 on 09/11/2024 by Francisco Rowan MD at [facility] Left: Ankle [employer] AR-8945-34 PT / / [employer] Staple Compression Supermx 65l56ff Nitinol [id number] - [id number] Implanted:Qty: 1 on 09/11/2024 by Francisco Rowan MD at [facility] Left: Ankle [employer] [id number] 04/29/2029 AR-8719MXD S-1818 / / [id number] [employer] Staple Compression Supermx [id number] Nitinol [id number] - [id number] Implanted:Qty: 1 on 09/11/2024 by Francisco Rowan MD at [facility] Left: Ankle [employer] [id number] 04/29/2029 AR-8719MXD S-1818 / / [id number] [employer] Staple Compression Supermx 09n33sd Nitinol [id number] - [id number] Implanted:Qty: 1 on 09/11/2024 by Francisco Rowan MD at [facility] Left: Ankle [employer] [id number] 04/29/2029 AR-8719MXD S-2019 / / [id number] Procedures Procedure Name Priority Date/Time Associated Diagnosis Comments XR ANKLE LEFT 2 VIEWS Schedule Routine, Read Routine (OP Routine) 11/12/2024 9:35 AM DRY TRANSFER WORKER Left ankle pain, unspecified chronicity XR FOOT LEFT 3 OR MORE VIEWS Schedule Routine, Read Routine (OP Routine) 11/12/2024 9:35 AM DRY TRANSFER WORKER Left ankle pain, unspecified chronicity ORTHO CASTING/SPLINTING Routine 10/18/2024 1:09 PM DRY TRANSFER WORKER Arthritis of left ankle Arthritis of left subtalar joint XR FOOT LEFT 3 OR MORE VIEWS Schedule Routine, Read Routine (OP Routine) 10/18/2024 12:03 PM DRY TRANSFER WORKER Arthritis of left ankle XR ANKLE LEFT 2 VIEWS Schedule Routine, Read Routine (OP Routine) 10/18/2024 12:03 PM DRY TRANSFER WORKER Arthritis of left ankle MT CAST SUP SHRT LEG FIBERGLASS Routine 10/01/2024 10:40 AM DRY TRANSFER WORKER Arthritis of left subtalar joint MT APPLICATION SHORT LEG CAST BELOW KNEE-TOE Routine 10/01/2024 10:40 AM DRY TRANSFER WORKER Arthritis of left subtalar joint EGFR Routine 09/12/2024 5:25 AM DRY TRANSFER WORKER DIFFERENTIAL AUTO Routine 09/12/2024 5:2 5 AM DRY TRANSFER WORKER BASIC METABOLIC PANEL Routine 09/12/2024 5:25 AM DRY TRANSFER WORKER CBC WITH AUTO DIFFERENTIAL Routine 09/12/2024 5:25 AM DRY TRANSFER WORKER FL FLUOROSCOPY < 1 HOUR IP Routine 09/11/2024 11:06 AM DRY TRANSFER WORKER MT AN PROCEDURE PLACEHOLDER Routine 09/11/2024 8:07 AM DRY TRANSFER WORKER MT AN ELECTIVE ENDOTRACHEAL AIRWAY Routine 09/11/2024 8:07 AM DRY TRANSFER WORKER MT AN PROCEDURE PLACEHOLDER Routine 09/11/2024 7:38 AM DRY TRANSFER WORKER MT AN PROCEDURE PLACEHOLDER Routine 09/11/2024 7:38 AM DRY TRANSFER WORKER DEBRIDEMENT - ANKLE 09/11/2024 7 :30 AM DRY TRANSFER WORKER Arthritis of left ankle ARTHRODESIS TRIPLE - FOOT 09/11/2024 7:30 AM DRY TRANSFER WORKER Arthritis of left ankle from Last 3 Months Results * XR Foot Left 3 or More Views (11/12/2024 9:35 AM DRY TRANSFER WORKER) Anatomical Region Laterality Modality Lower Extremities, Foot Left Computed Radiography 11/12/2024 10:2 0 AM DRY TRANSFER WORKER Impressions 11/12/2024 10:20 AM DRY TRANSFER WORKER 1. ??Unchanged triple hindfoot arthrodesis with intact instrumentation. Electronically signed by: Len Mejia D.O. Narrative 11/12/2024 10:20 AM DRY TRANSFER WORKER EXAMINATION: XR FOOT LEFT 3 OR MORE VIEWS, XR ANKLE LEFT 2 VIEWS HISTORY: pain FINDINGS: Comparison is made to 10/18/2024 radiograph. Unchanged alignment with arthrodesis with intact instrumentation. Otherwise mild midfoot osteoarthritis and moderate 1st metatarsophalangeal osteoarthritis. Moderate talocrural osteoarthritis. Small plantar calcaneal spur. Moderate pes planovalgus. Disuse osteopenia. No syndesmotic widening. Corticated heterotopic ossification along the medial ankle joint margin may represent sequela of remote injury. Mild diffuse soft tissue swelling. Procedure Note Len Mejia, DO - 11/12/2024 EXAMINATION: XR FOOT LEFT 3 OR MORE VIEWS, XR ANKLE LEFT 2 VIEWS HISTORY: pain FINDINGS: Comparison is made to 10/18/2024 radiograph. Unchanged alignment with arthrodesis with intact instrumentation. Otherwise mild midfoot osteoarthritis and moderate 1st metatarsophalangeal osteoarthritis. Moderate talocrural osteoarthritis. Small plantar calcaneal spur. Moderate pes planovalgus. Disuse osteopenia. No syndesmotic widening. Corticated heterotopic ossification along the medial ankle joint margin may represent sequela of remote injury. Mild diffuse soft tissue swelling. IMPRESSION: 1. Unchanged triple hindfoot arthrodesis with intact instrumentation. Electronically signed by: Len Mejia D.O. us Francisco Rowan MD IMG XR PROCEDURES Final Res ult * XR Ankle Left 2 Views (11/12/2024 9:35 AM DRY TRANSFER WORKER) Anatomical Region Laterality Modality Lower Extremities, Ankle Left Compute d Radiography 11/12/2024 10:2 0 AM DRY TRANSFER WORKER Impressions 11/12/2024 10:20 AM DRY TRANSFER WORKER 1. ??Unchanged triple hindfoot arthrodesis with intact instrumentation. Electronically signed by: Len Mejia D.O. Narrative 11/12/2024 10:20 AM DRY TRANSFER WORKER EXAMINATION: XR FOOT LEFT 3 OR MORE VIEWS, XR ANKLE LEFT 2 VIEWS HISTORY: pain FINDINGS: Comparison is made to 10/18/2024 radiograph. Unchanged alignment with arthrodesis with intact instrumentation. Otherwise mild midfoot osteoarthritis and moderate 1st metatarsophalangeal osteoarthritis. Moderate talocrural osteoarthritis. Small plantar calcaneal spur. Moderate pes planovalgus. Disuse osteopenia. No syndesmotic widening. Corticated heterotopic ossification along the medial ankle joint margin may represent sequela of remote injury. Mild diffuse soft tissue swelling. Procedure Note Len Mejia DO - 11/12/2024 EXAMINATION: XR FOOT LEFT 3 OR MORE VIEWS, XR ANKLE LEFT 2 VIEWS HISTORY: pain FINDINGS: Comparison is made to 10/18/2024 radiograph. Unchanged alignment with arthrodesis with intact instrumentation. Otherwise mild midfoot osteoarthritis and moderate 1st metatarsophalangeal osteoarthritis. Moderate talocrural osteoarthritis. Small plantar calcaneal spur. Moderate pes planovalgus. Disuse osteopenia. No syndesmotic widening. Corticated heterotopic ossification along the medial ankle joint margin may represent sequela of remote injury. Mild diffuse soft tissue swelling. IMPRESSION: 1. Unchanged triple hindfoot arthrodesis with intact instrumentation. Electronically signed by: Len Mejia D.O. us Francisco Rowan MD IMG XR PROCEDURES Final Res ult * Ortho Casting/Splinting Documentation (10/18/2024 1:09 PM DRY TRANSFER WORKER) Narrative Stiven Donald RMA - 10/18/2024 1:09 PM DRY TRANSFER WORKER Stiven Donald RMA ? 10/18/2024 ??1:10 PM Ortho Casting/Splinting Documentation Date/Time: 10/18/2024 1:09 PM Performed by: Stiven Donald RMA Authorized by: Francisco Rowan MD ?? Sensation: ??Normal Skin Condition: ??Clean, dry, and intact Flint/Sutures Removed: No ?? Pin Pulled: No ?? Cast Removed: Yes ?? Cast Applied: No ?? Overwrap: No ?? Location: ??Foot Foot: ??L foot Supplies: ??Cast removal only Capillary Refill: ??Normal Patient tolerance of procedure: ??Tolerated well, no immediate complications us Francisco Rowan MD IN CLINIC/BEDSIDE ORDERABLE S Final Result * XR Foot Left 3 or More Views (10/18/2024 12:03 PM DRY TRANSFER WORKER) Anatomical Region Laterality Modality Lower Extremities, Foot Left Computed Radiography 10/18/2024 12:1 0 PM DRY TRANSFER WORKER Impressions 10/18/2024 12:10 PM DRY TRANSFER WORKER 1. ??Interval instrumented triple hindfoot arthrodesis without osseous fusion. Electronically signed by: Len Mejia D.O. Narrative 10/18/2024 12:10 PM DRY TRANSFER WORKER EXAMINATION: XR ANKLE LEFT 2 VIEWS, XR FOOT LEFT 3 OR MORE VIEWS HISTORY: ankle pain pain/NWB FINDINGS: Comparison is made to 08/02/2024 radiographs. Interval triple hindfoot arthrodesis with intact instrumentation. No significant osseous fusion has developed. Small plantar calcaneal spur. Mild to moderate midfoot osteoarthritis of the uninvolved joints including moderate osteoarthritis at the lidocaine performed-cuboid articulation. Diffuse decreased osseous mineralization. Moderate 1st metatarsal phalangeal joint arthritis. Moderate tibiotalar osteoarthritis with loose bodies. Heterogeneous appearance of the talar dome is likely due to osseous demineralization and potentially superimposed degenerative subchondral cystic change. Mild diffuse soft tissue swelling. Procedure Note Len Mejia, DO - 10/18/2024 EXAMINATION: XR ANKLE LEFT 2 VIEWS, XR FOOT LEFT 3 OR MORE VIEWS HISTORY: ankle pain pain/NWB FINDINGS: Comparison is made to 08/02/2024 radiographs. Interval triple hindfoot arthrodesis with intact instrumentation. No significant osseous fusion has developed. Small plantar calcaneal spur. Mild to moderate midfoot osteoarthritis of the uninvolved joints including moderate osteoarthritis at the lidocaine performed-cuboid articulation. Diffuse decreased osseous mineralization. Moderate 1st metatarsal phalangeal joint arthritis. Moderate tibiotalar osteoarthritis with loose bodies. Heterogeneous appearance of the talar dome is likely due to osseous demineralization and potentially superimposed degenerative subchondral cystic change. Mild diffuse soft tissue swelling. IMPRESSION: 1. Interval instrumented triple hindfoot arthrodesis without osseous fusion. Electronically signed by: Len Mejia D.O. us Francisco Rowan MD IMG XR PROCEDURES Final Res ult * XR Ankle Left 2 Views (10/18/2024 12:03 PM DRY TRANSFER WORKER) Anatomical Region Laterality Modality Lower Extremities, Ankle Left Compute d Radiography 10/18/2024 12:1 0 PM DRY TRANSFER WORKER Impressions 10/18/2024 12:10 PM DRY TRANSFER WORKER 1. ??Interval instrumented triple hindfoot arthrodesis without osseous fusion. Electronically signed by: Len Mejia D.O. Narrative 10/18/2024 12:10 PM DRY TRANSFER WORKER EXAMINATION: XR ANKLE LEFT 2 VIEWS, XR FOOT LEFT 3 OR MORE VIEWS HISTORY: ankle pain pain/NWB FINDINGS: Comparison is made to 08/02/2024 radiographs. Interval triple hindfoot arthrodesis with intact instrumentation. No significant osseous fusion has developed. Small plantar calcaneal spur. Mild to moderate midfoot osteoarthritis of the uninvolved joints including moderate osteoarthritis at the lidocaine performed-cuboid articulation. Diffuse decreased osseous mineralization. Moderate 1st metatarsal phalangeal joint arthritis. Moderate tibiotalar osteoarthritis with loose bodies. Heterogeneous appearance of the talar dome is likely due to osseous demineralization and potentially superimposed degenerative subchondral cystic change. Mild diffuse soft tissue swelling. Procedure Note Len Mejia, DO - 10/18/2024 EXAMINATION: XR ANKLE LEFT 2 VIEWS, XR FOOT LEFT 3 OR MORE VIEWS HISTORY: ankle pain pain/NWB FINDINGS: Comparison is made to 08/02/2024 radiographs. Interval triple hindfoot arthrodesis with intact instrumentation. No significant osseous fusion has developed. Small plantar calcaneal spur. Mild to moderate midfoot osteoarthritis of the uninvolved joints including moderate osteoarthritis at the lidocaine performed-cuboid articulation. Diffuse decreased osseous mineralization. Moderate 1st metatarsal phalangeal joint arthritis. Moderate tibiotalar osteoarthritis with loose bodies. Heterogeneous appearance of the talar dome is likely due to osseous demineralization and potentially superimposed degenerative subchondral cystic change. Mild diffuse soft tissue swelling. IMPRESSION: 1. Interval instrumented triple hindfoot arthrodesis without osseous fusion. Electronically signed by: Len Mejia D.O. us Francisco Rowan MD IMG XR PROCEDURES Final Res ult * MT APPLICATION SHORT LEG CAST BELOW KNEE-TOE, MT CAST SUP SHRT LEG FIBERGLASS (10/01/2024 10:40 AM DRY TRANSFER WORKER) Narrative Shyam Muhammad CMA - 10/01/2024 10:40 AM Shyam Rosales CMA ? 10/01/2024 10:41 AM Ortho Casting/Splinting Documentation Date/Time: 10/01/2024 10:40 AM Performed by: Shyam Muhammad CMA Authorized by: Francisco Rowan MD ?? Cast Removed: Yes (Splint) ?? Cast Applied: Yes ?? Location: ??Ankle Ankle: ??L ankle Cast type: ??Short leg non weightbearing cast Supplies: ??Fiberglass Additional Supplies: ??Cotton padding, cotton stocking/sleeve and gauze Number of fiberglass rolls used: ??4 Capillary Refill: ??Normal Patient tolerance of procedure: ??Tolerated well, no immediate complications Pt received cast care instructions us Francisco Rowan MD IN CLINIC/BEDSIDE ORDERABLE S Final Result * eGFR (09/12/2024 5:25 AM DRY TRANSFER WORKER) eGFR 76 >=60 mL/min/1. 73 m2 Comment: Interpretive Data Reference Interval Normal ?>/= 90 mL/min/1.73m2 Mildly decreased* ? 60 - 89 mL/min/1.73m2 Mildly to moderately decreased ?45 - 59 mL/min/1.73m2 Moderately to severely decreased ??30 - 44 mL/min/1.73m2 Severely decreased ?15 - 29 mL/min/1.73m2 Kidney Failure ?< 15 ??mL/min/1.73m2 *Relative to young adult level Estimated glomerular filtration rate is determined by the 2020 CKD-EPI equation recommended by the National Kidney Foundation (A Unifying Approach to GFR Estimation: Recommendations of the NKF-ASK Task Force on Reassessing the Inclusion of Race in Diagnosing Kidney Disease, JASN 2020). The CKD-EPI equation should not be used for patients with unstable renal function and has not been validated in children and those over 70. Current interpretive data was last reviewed 2021. Blood 09/12/2024 5:25 AM DRY TRANSFER WORKER 09/12/2024 5:37 AM DRY TRANSFER WORKER us Francisco Rowan MD LAB BLOOD ORDERABLES Final Result [facility] [place] [address] * (ABNORMAL) Differential, auto (09/12/2024 5:25 AM DRY TRANSFER WORKER) Neutrophil abs 8.2(H) 1.5 - 6.5 K/cumm Imm gran abs 0.1 0.0 - 0.1 K/cumm [facility] Lymphocyte abs 1.3 0.8 - 3.3 K/cumm [facility] Monocyte abs 1.1(H) 0.2 - 0.8 K/cumm [facility] Eosinophil abs 0.0 0.0 - 0.5 K/cumm [facility] Basophil abs 0.0 0.0 - 0.1 K/cumm [facility] Neutrophil pct 77.0 % [facility] Comment: Interpretive Data Percent cell count reference ranges are not reported, since discordance with absolute values may lead to misinterpretation of CBC data. Current Interpretive Data was last revised on 2018. Imm gran pct 0.6 % [facility] Comment: Interpretive Data Percent cell count reference ranges are not reported, since discordance with absolute values may lead to misinterpretation of CBC data. Current Interpretive Data was last revised on 2018. Lymphocyte pct 12.0 % [facility] Comment: Interpretive Data Percent cell count reference ranges are not reported, since discordance with absolute values may lead to misinterpretation of CBC data. Current Interpretive Data was last revised on 2018. Monocyte pct 10.0 % [facility] Comment: Interpretive Data Percent cell count reference ranges are not reported, since discordance with absolute values may lead to misinterpretation of CBC data. Current Interpretive Data was last revised on 2018. Eosinophil pct 0.1 % [facility] Comment: Interpretive Data Percent cell count reference ranges are not reported, since discordance with absolute values may lead to misinterpretation of CBC data. Current Interpretive Data was last revised on 2018. Basophil pct 0.3 % [facility] Comment: Interpretive Data Percent cell count reference ranges are not reported, since discordance with absolute values may lead to misinterpretation of CBC data. Current Interpretive Data was last revised on 2018. Blood 09/12/2024 5:25 AM DRY TRANSFER WORKER 09/12/2024 5:37 AM DRY TRANSFER WORKER Francisco Rowan MD LAB BLOOD ORDERABLES Final Result Performing Organization Address [facility] Co de Phone Number [facility] [place] [address] * (ABNORMAL) CBC with auto differential (09/12/2024 5:25 AM DRY TRANSFER WORKER) [facility] WBC 10.7(H) 3.8 - 9.9 K/cumm Hgb 10.6(L) 11.9 - 15.5 g/dL [facility] Hct 31.7(L) 35.6 - 45.5 % [facility] Plt 339 150 - 400 K/cumm [facility] MPV 9.6 9.1 - 12.3 fL [facility] RBC 3.49(L) 3.90 - 5.20 M/cumm [facility] MCV 90.8 81.3 - 96.4 fL [facility] MCH 30.4 27.1 - 33.3 pg [facility] MCHC 33.4 32.3 - 35.7 g/dL [facility] RDW CV 12.8 11.1 - 14.9 % [facility] RDW SD 42.7 35.7 - 48.1 fL [facility] NRBC abs 0.00 0.00 - 0.01 K/cumm [facility] Blood 09/12/2024 5:25 AM DRY TRANSFER WORKER 09/12/2024 5:37 AM DRY TRANSFER WORKER Francisco Rowan MD LAB BLOOD ORDERABLES Final Result [facility] [place] [address] * Basic metabolic panel (09/12/2024 5:25 AM DRY TRANSFER WORKER) Pathologist [facility] Sodium 140 135 - 145 mmol/L Potassium, pl 4.8 3.3 - 4.9 mmol/L [facility] Chloride 104 97 - 110 mmol/L [facility] CO2 28 22 - 32 mmol/L [facility] Anion gap 8 2 - 15 mmol/L [facility] BUN 15 6 - 25 mg/dL [facility] Creatinine 0.85 0.60 - 1.10 mg/dL [facility] Glucose 117 70 - 199 mg/dL [facility] Comment: Interpretive Data Fasting glucose >/= 126 mg/dl is diagnostic for diabetes. ?? Fasting is defined as no caloric intake for at least 8 hours. Fasting glucose between 100 mg/dl to 125 mg/dl is diagnostic of prediabetes. In a patient with classic symptoms of hyperglycemia or hyperglycemic crisis, a random glucose >/= 200 mg/dl is diagnostic for diabetes. In the absence of unequivocal hyperglycemia, results should be confirmed by repeat testing. The classification and Diagnosis of Diabetes Diabetes Care 202; 46: S19-S40. Current interpretive data was last revised 2022. Calcium 9.1 8.5 - 10.3 mg/dL [facility] Blood 09/12/2024 5:25 AM DRY TRANSFER WORKER 09/12/2024 5:37 AM DRY TRANSFER WORKER us Francisco Rowan MD LAB BLOOD ORDERABLES Final Result [facility] [place] [address] * FL Fluoroscopy < 1 Hour (09/11/2024 11:06 AM DRY TRANSFER WORKER) Narrative [facility] - 09/11/2024 11:07 AM DRY TRANSFER WORKER The images from this study are not interpreted by Radiology. ??Please refer to the physician's procedure / OR operative note. us Francisco Rowan MD IMG FLUOROSCOPY PROCEDURES Final Result [facility] * MT AN ELECTIVE ENDOTRACHEAL AIRWAY, MT AN PROCEDURE PLACEHOLDER (09/11/2024 8:07 AM DRY TRANSFER WORKER) Narrative Yue Hedrick CRNA - 09/11/2024 8:07 AM DRY TRANSFER WORKER Yue Hedrick CRNA ? 09/11/2024 ??8:07 AM Airway Patient location: OR Urgency: elective Indications for airway management: anesthesia Difficult airway: no Staff: Supervising provider: Js Weinstein MD Placed by: SUCTION DREDGE DUMPING SUPERVISOR: Yue Hedrick CRNA Emergent airway documentation: Risks and benefits discussed: yes Consent obtained: yes Consent given by: patient Airway prep: Preoxygenated: yes Patient position: sniffing MILS maintained throughout: yes Mask difficulty assessment: 0 - not attempted Spontaneous ventilation during airway: absent Sedation level during airway: GA Final airway details: Final airway type: endotracheal airway Tube type: ETT ETT size: 7.0 mm Cuffed: yes Technique used for successful ETT placement: direct laryngoscopy Devices/Methods used in placement: stylet Insertion site: oral Blade type: Garcia Blade size: 2 Cormack-Lehane (direct): grade IIa - partial view of glottis Cuff volume: 7 mL Cuff inflated with: air ETT to teeth: 22 cm Placement verified by: auscultation and CO2 detection Airway secured with: silk tape Number of attempts: 1 us Js Weinstein MD ANESTHESIA ORDERABLES Final Resu lt * MT AN PROCEDURE PLACEHOLDER (09/11/2024 7:38 AM DRY TRANSFER WORKER) Narrative Js Weinstein MD - 09/11/2024 7:38 AM DRY TRANSFER WORKER Jayesh Brito MD ? 09/11/2024 ??7:39 AM Peripheral Block Patient location during procedure: pre-op holding Reason for block: post-op pain management per surgeon request Ultrasound image in chart or stored: yes Block type: single shot Laterality: left Block type: saphenous nerve block - subsartorial approach Staff: Supervising provider: Js Weinstein MD Placed by: Resident: Jayesh Brito MD Procedure prep: Preprocedure checklist: patient identified, procedure contraindications assessed, site marked, procedure consent, surgical consent, IV checked, risks, benefits and alternatives discussed, monitors and equipment checked and timeout performed Patient position: supine Procedure performed while patient: sedate with meaningful contact Monitoring: ECG, oximetry and blood pressure Supplemental O2: nasal cannula Prep solution: chlorhexidine/alcohol PPE: provider hat/mask, sterile gloves and sterile probe cover and gel Peripheral nerve block: Technique: ultrasound guided Needle type: insulated, short-bevel and echogenic Needle length: 100 mm Injection assessment: injection made incrementally with constant monitoring, local visualized surrounding nerve on ultrasound, negative aspiration for heme, no paresthesias noted, normal resistance to injection and see flowsheet for medication details Assessment: Block success: full evaluation pending Events: patient tolerated procedure well with no complications us Js Weinstein MD ANESTHESIA ORDERABLES Final Resu lt * MT AN PROCEDURE PLACEHOLDER (09/11/2024 7:38 AM DRY TRANSFER WORKER) Narrative Js Weinstein MD - 09/11/2024 7:38 AM DRY TRANSFER WORKER Jayesh Brito MD ? 09/11/2024 ??7:38 AM Peripheral Block Patient location during procedure: pre-op holding Reason for block: post-op pain management per surgeon request Ultrasound image in chart or stored: yes Block type: single shot Laterality: left Block type: sciatic nerve block - popliteal Staff: Supervising provider: Js Weinstein MD Placed by: Resident: Jayesh Brito MD Procedure prep: Preprocedure checklist: patient identified, procedure contraindications assessed, site marked, procedure consent, surgical consent, IV checked, risks, benefits and alternatives discussed, monitors and equipment checked and timeout performed Patient position: supine Procedure performed while patient: sedate with meaningful contact Monitoring: ECG, oximetry and blood pressure Supplemental O2: nasal cannula Prep solution: chlorhexidine/alcohol PPE: provider hat/mask, sterile gloves and sterile probe cover and gel Peripheral nerve block: Technique: ultrasound guided Needle type: insulated, short-bevel and echogenic Needle length: 100 mm Injection assessment: injection made incrementally with constant monitoring, local visualized surrounding nerve on ultrasound, negative aspiration for heme, no paresthesias noted, normal resistance to injection and see flowsheet for medication details Assessment: Block success: full evaluation pending Events: patient tolerated procedure well with no complications us Js Weinstein MD ANESTHESIA ORDERABLES Final Resu lt from Last 3 Months Insurance MEDICARE [facility] MEDICARE [facility] Advance Directives For more information, please contact: [phone] * Full Code (Latest Code Status on File) Date Activated Date Inactivated Comments 09/11/2024 1:33 PM 09/12/2024 3:03 PM Care Teams Operation Manager Relationship Specialty Start Date End Date Jamar Hastings MD PCP - General 12/04/10
--- OUTSIDE RECORDS SUMMARY | 2024-11-27 13:19 | XMS_ITS | Clinical Summary ---
Author Organization [facility] Address [address] [place] [address] Care Team Providers Care Community Health Consultant Name Role Phone Jamar Hastings MD Primary Care Provider [phone] Allergies Active Allergy Reactions Criticality Noted Date Comments Iodinated Contrast Media Anaphylaxis High 05/10/2019 Ioversol Edema High Other name for loversol is Optiray. 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 Arthritis of left ankle 08/03/2024 Encounters Date Type Department Care Team Description 11/26/2024 Telephone [facility] Orthopaedic Surgery [address] [facility] 1st Floor [address] [place] [address] Donato Hernández, KIKO 11/12/2024 9:20 AM DIRECTOR OF BROADCAST Office Visit [facility] Orthopaedic Surgery [address] [place] [address] Advanced [facility] 6th [place] [address] [place] [address] Francisco Rowan MD Left ankle pain, unspecified chronicity (Primary Dx); Arthritis of left ankle; Arthritis of left subtalar joint 11/12/2024 8:45 AM DIRECTOR OF BROADCAST - 11/12/2024 11:59 PM DIRECTOR OF BROADCAST Hospital Encounter [facility] [address] [place] [id number] Left ankle pain, unspecified chronicity Discharge Disposition: Discharge to home or self care 11/06/2024 Telephone [facility] Orthopaedic Surgery [address] [facility] 1st Floor [address] [place] [address] Donato Hernández, ATC 10/18/2024 12:00 PM DIRECTOR OF BROADCAST Office Visit [facility] Orthopaedic Surgery [address] [facility] 1st Floor [address] [place] [address] Francisco Rowan MD Arthritis of left ankle (Primary Dx); Arthritis of left subtalar joint 10/18/2024 11:59 AM DIRECTOR OF BROADCAST - 10/18/2024 11:59 PM DIRECTOR OF BROADCAST Hospital Encounter [facility] Radiology at [facility] [address] [place] [address] Arthritis of left ankle Discharge Disposition: Discharge to home or self care 10/01/2024 9:50 AM DIRECTOR OF BROADCAST Office Visit [facility] Orthopaedic Surgery [address] [facility] 6th [place] [address] [place] [address] Francisco Rowan MD Arthritis of left subtalar joint (Primary Dx) 09/26/2024 Telephone [facility] Orthopaedic Surgery [address] [facility] 6th [place] [address] [place] [address] BettyDonato sanders, ATC 09/25/2024 Telephone [facility] Orthopaedic Surgery [address] [facility] 6th [place] [address] [place] [address] BettyDonato sanders, ATC 09/14/2024 Telephone [facility] Orthopaedic Surgery [address] [facility] 1st Floor [address] [place] [address] BettyDonato sanders, ATC 09/11/2024 7:30 AM DIRECTOR OF BROADCAST - 09/11/2024 11:50 AM DIRECTOR OF BROADCAST Surgery [facility] Operating [facility] [address] [place] [address] Francisco Rowan MD Left triple arthrodesis 09/11/2024 7:25 AM DIRECTOR OF BROADCAST Anesthesia Event [facility] Operating [facility]) [address] [place] [address] Js Weinstein MD Brake, Barbara E., NP 09/11/2024 5:35 AM DIRECTOR OF BROADCAST - 09/12/2024 10:58 AM DIRECTOR OF BROADCAST Hospital Encounter [facility] [address] [place] [address] Francisco Rowan MD Arthritis of left subtalar joint (Primary Dx) Discharge Disposition: Discharge to home or self care 09/07/2024 Telephone [facility] Orthopaedic Surgery [address] [facility] 1[address] [place] [address] Donato Hernández ATC from Last 3 Months Immunizations Name Administration Dates Next Due Influenza, Trivalent, High D ose, Split, Preservative Free, Intramuscular 09/12/2024 Surgical History Surgery Date Site/Laterality Comments TUBAL LIGATION unsure of date BACK SURGERY 10/31/1986 - 10/30/19871996, 2006, 2019 KNEE ARTHROPLASTY 10/31/2023 - 11/30/2023 Knee replacement FLUORO GUIDED INJECTION ANKLE LEFT 08/12/2023 Left FLUORO GUIDED INJECTION ANKLE LEFT 11/18/2023 Left FLUORO GUIDED INJECTION ANKLE LEFT 03/12/2024 Left KNEE SURGERY Left x2-prior to knee replacement ESOPHAGOSCOPY / EGD 10/31/2023 - 10/30/2024 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 surgeries X2 CHOLECYSTECTOMY unknown date Medical History Medical History Date Comments Hx Other Medical Risk Factor 5 PONV (postoperative nausea and vomiting) Motion sickness Sleep apnea Family History Medical History Relation Name Comments Hypertension Father Hypertension; Other Father Vascular Diseas e; Hypertension Mother Hypertension; Diabetes Other Diabetes mellit us; Anesthesia problems Neg Hx Relation Name Status Comments Father Mother Other Social History Tobacco Use Types Packs/Day Years [...] on file Legal Sex Female 1:01 PM DIRECTOR OF BROADCAST Gender Identity Not on file Sexual Orientation Not on file Obstetrics History Last Filed Vital Signs Vital Sign Reading Time Taken Comments Blood Pressure 141/67 09/12/2024 9:00 AM DIRECTOR OF BROADCAST Pulse 89 09/12/2024 9:00 AM DIRECTOR OF BROADCAST Temperature 37 ??C (98.6 ??F) 09/12/2024 8:08 AM DIRECTOR OF BROADCAST Respiratory Rate 20 09/12/2024 8:08 AM DIRECTOR OF BROADCAST Oxygen Saturation 100% 09/12/2024 9:00 AM DIRECTOR OF BROADCAST Inhaled Oxygen Concentration - - Weight 69.4 kg (153 lb) 09/11/2024 3:44 PM DIRECTOR OF BROADCAST Height 160 cm (5' 2.99 ) 09/11/2024 3:44 PM DIRECTOR OF BROADCAST Body Mass Index 27.11 09/11/2024 3:44 PM DIRECTOR OF BROADCAST Plan of Treatment Health Maintenance Due Date Last Done Comments Breast Cancer Screening-Mammogram 1960 Colon Cancer Screening-Colonoscopy 1960 Depression Screening 1960 Hepatitis C Screening 1960 Osteoporosis Screening-Bone Density Scan 1960 Hepatitis B Screening 1976 DTaP/Tdap/Td Vaccine (2 - Td or Tdap) 02/07/202207/2012 Pneumococcal vaccine 65+ (1 of 1 - PCV) 2023 Well Visit 65+ 2023 Covid-19 Vaccine ( season) 2024 11/30/2021, 01/27/2021, 01/06/2021 Fall Risk Assessment 09/12/2025 09/12/2024 Zoster Vaccine Completed 04/24/2019, 12/29, 12/27/2016 Influenza Vaccine Completed 09/12/2024, 08/18/2017 Medical Devices Implanted Type Area C D Area Supervisor Device Identifier Shelf Expiration Date Model / Serial / Lot [employer] Graft Bone Filler Cortical Cancellous Cyro Freezer [facility] Putty Abs-2008-05 - [id number] - [id number] Implanted:Qty: 1 on 09/11/2024 by Francisco Rowan MD at [facility] Left: Ankle [employer] 06/20/2026 ABS-2008- 5 / [id number] / [id number] [employer] Low Profile Screws 6.7mm 75mm 28mm Self Drill Self Tap Cannulated [id number]-[id number] - [id number] Implanted:Qty: 1 on 09/11/2024 by Franicsco Rowan MD at [facility] Left: Ankle [employer] AR-[id number] 75 / / [employer] Low Profile Screws 4.5mm 38mm Self Drill Self Tap Cannulated Hex [id number]-[id number] - [id number] Implanted:Qty: 1 on 09/11/2024 by Francisco Rowan MD at [facility] Left: Ankle [employer] AR-8945-38 PT / / [employer] Low Profile Screws 4.5mm 34mm Self Drill Self Tap Cannulated Hex [id number]-[id number] - [id number] Implanted:Qty: 1 on 09/11/2024 by Francisco Rowan MD at [facility] Left: Ankle [employer] AR-8945-34 PT / / [employer] Staple Compression Supermx [id number] Nitinol [id number] - [id number] Implanted:Qty: 1 on 09/11/2024 by Francisco Rowan MD at [facility] Left: Ankle [employer] [id number] 04/29/2029 AR-8719MXD S-1818 / / [id number] [employer] Staple Compression Supermx [id number] Nitinol [id number] - [id number] Implanted:Qty: 1 on 09/11/2024 by Francisco Rowan MD at [facility] Left: Ankle [employer] [id number] 04/29/2029 AR-8719MXD S-1818 / / [id number] [employer] Staple Compression Supermx [id number] Nitinol [id number] - [id number] Implanted:Qty: 1 on 09/11/2024 by Francisco Rowan MD at [facility] Left: Ankle [employer] [id number] 04/29/2029 AR-[id number] S-2019 / / [id number] Procedures Procedure Name Priority Date/Time Associated Diagnosis Comments XR ANKLE LEFT 2 VIEWS Schedule Routine, Read Routine (OP Routine) 11/12/2024 9:35 AM DIRECTOR OF BROADCAST Left ankle pain, unspecified chronicity XR FOOT LEFT 3 OR MORE VIEWS Schedule Routine, Read Routine (OP Routine) 11/12/2024 9:35 AM DIRECTOR OF BROADCAST Left ankle pain, unspecified chronicity ORTHO CASTING/SPLINTING Routine 10/18/2024 1:09 PM DIRECTOR OF BROADCAST Arthritis of left ankle Arthritis of left subtalar joint XR FOOT LEFT 3 OR MORE VIEWS Schedule Routine, Read Routine (OP Routine) 10/18/2024 12:03 PM DIRECTOR OF BROADCAST Arthritis of left ankle XR ANKLE LEFT 2 VIEWS Schedule Routine, Read Routine (OP Routine) 10/18/2024 12:03 PM DIRECTOR OF BROADCAST Arthritis of left ankle WY CAST SUP SHRT LEG FIBERGLASS Routine 10/01/2024 10:40 AM DIRECTOR OF BROADCAST Arthritis of left subtalar joint WY APPLICATION SHORT LEG CAST BELOW KNEE-TOE Routine 10/01/2024 10:40 AM DIRECTOR OF BROADCAST Arthritis of left subtalar joint EGFR Routine 09/12/2024 5:25 AM DIRECTOR OF BROADCAST DIFFERENTIAL AUTO Routine 09/12/2024 5:2 5 AM DIRECTOR OF BROADCAST BASIC METABOLIC PANEL Routine 09/12/2024 5:25 AM DIRECTOR OF BROADCAST CBC WITH AUTO DIFFERENTIAL Routine 09/12/2024 5:25 AM DIRECTOR OF BROADCAST FL FLUOROSCOPY < 1 HOUR IP Routine 09/11/2024 11:06 AM DIRECTOR OF BROADCAST WY AN PROCEDURE PLACEHOLDER Routine 09/11/2024 8:07 AM DIRECTOR OF BROADCAST WY AN ELECTIVE ENDOTRACHEAL AIRWAY Routine 09/11/2024 8:07 AM DIRECTOR OF BROADCAST WY AN PROCEDURE PLACEHOLDER Routine 09/11/2024 7:38 AM DIRECTOR OF BROADCAST WY AN PROCEDURE PLACEHOLDER Routine 09/11/2024 7:38 AM DIRECTOR OF BROADCAST DEBRIDEMENT - ANKLE 09/11/2024 7 :30 AM DIRECTOR OF BROADCAST Arthritis of left ankle ARTHRODESIS TRIPLE - FOOT 09/11/2024 7:30 AM DIRECTOR OF BROADCAST Arthritis of left ankle from Last 3 Months Results * XR Foot Left 3 or More Views (11/12/2024 9:35 AM DIRECTOR OF BROADCAST) Anatomical Region Laterality Modality Lower Extremities, Foot Left Computed Radiography 11/12/2024 10:2 0 AM DIRECTOR OF BROADCAST Impressions 11/12/2024 10:20 AM DIRECTOR OF BROADCAST 1. ??Unchanged triple hindfoot arthrodesis with intact instrumentation. Electronically signed by: Len Mejia D.O. Narrative 11/12/2024 10:20 AM DIRECTOR OF BROADCAST EXAMINATION: XR FOOT LEFT 3 OR MORE [...] instrumentation. Electronically signed by: Len Mejia D.O. Francisco Rowan MD IMG XR PROCEDURES Final Res ult * XR Ankle Left 2 Views (11/12/2024 9:35 AM DIRECTOR OF BROADCAST) Anatomical Region Laterality Modality Lower Extremities, Ankle Left Compute d Radiography 11/12/2024 10:2 0 AM DIRECTOR OF BROADCAST Impressions 11/12/2024 10:20 AM DIRECTOR OF BROADCAST 1. ??Unchanged triple hindfoot arthrodesis with intact instrumentation. Electronically signed by: Len Mejia D.O. Narrative 11/12/2024 10:20 AM DIRECTOR OF BROADCAST EXAMINATION: XR FOOT LEFT 3 OR MORE [...] with intact instrumentation. Electronically signed by: Len Densley, D.O. us Francisco Rowan MD IMG XR PROCEDURES Final Res ult * Ortho Casting/Splinting Documentation (10/18/2024 1:09 PM DIRECTOR OF BROADCAST) Narrative Stiven Donald RMA - 10/18/2024 1:09 PM DIRECTOR OF BROADCAST Stiven Donald RMA ? 10/18/2024 ??1:10 PM Ortho Casting/Splinting Documentation Date/Time: 10/18/2024 1:09 PM Performed by: Stiven Donald RMA Authorized by: Francisco Rowan MD ?? Sensation: ??Normal Skin Condition: ??Clean, dry, and intact Nick/Sutures Removed: No ?? Pin Pulled: No ?? Cast Removed: Yes ?? Cast Applied: No ?? Overwrap: No ?? Location: ??Foot Foot: ??L foot Supplies: ??Cast removal only Capillary Refill: ??Normal Patient tolerance of procedure: ??Tolerated well, no immediate complications us Francisco Rowan MD IN CLINIC/BEDSIDE ORDERABLE S Final Result * XR Foot Left 3 or More Views (10/18/2024 12:03 PM DIRECTOR OF BROADCAST) Anatomical Region Laterality Modality Lower Extremities, Foot Left Computed Radiography 10/18/2024 12:1 0 PM DIRECTOR OF BROADCAST Impressions 10/18/2024 12:10 PM DIRECTOR OF BROADCAST 1. ??Interval instrumented triple hindfoot arthrodesis without osseous fusion. Electronically signed by: Len Mejia D.O. Narrative 10/18/2024 12:10 PM DIRECTOR OF BROADCAST EXAMINATION: XR ANKLE LEFT 2 VIEWS, XR [...] Ankle Left 2 Views (10/18/2024 12:03 PM DIRECTOR OF BROADCAST) Anatomical Region Laterality Modality Lower Extremities, Ankle Left Compute d Radiography 10/18/2024 12:1 0 PM DIRECTOR OF BROADCAST Impressions 10/18/2024 12:10 PM DIRECTOR OF BROADCAST 1. ??Interval instrumented triple hindfoot arthrodesis without osseous fusion. Electronically signed by: Len Mejia D.O. Narrative 10/18/2024 12:10 PM DIRECTOR OF BROADCAST EXAMINATION: XR ANKLE LEFT 2 VIEWS, XR [...] soft tissue swelling. Procedure Note Len Mejia, - 10/18/2024 EXAMINATION: XR ANKLE LEFT 2 [...] IMG XR PROCEDURES Final Res ult * WY APPLICATION SHORT LEG CAST BELOW KNEE-TOE, WY CAST SUP SHRT LEG FIBERGLASS (10/01/2024 10:40 AM DIRECTOR OF BROADCAST) Narrative Shyam Muhammad CMA - 10/01/2024 10:40 AM DIRECTOR OF BROADCAST Shyam Muhammad CMA ? 10/01/2024 10:41 AM Ortho Casting/Splinting [...] Final Result * eGFR (09/12/2024 5:25 AM DIRECTOR OF BROADCAST) eGFR 76 >=60 mL/min/1. 73 m2 Comment: [...] last reviewed 2021. Blood 09/12/2024 5:25 AM DIRECTOR OF BROADCAST 09/12/2024 5:37 AM DIRECTOR OF BROADCAST us Francisco Rowan MD LAB BLOOD ORDERABLES Final Result [facility] [address] [facility] Department [place] [address] * (ABNORMAL) Differential, auto (09/12/2024 5:25 AM DIRECTOR OF BROADCAST) Pathologist [facility] Neutrophil abs 8.2(H) 1.5 - 6.5 K/cumm Imm gran abs 0.1 0.0 - 0.1 K/cumm [facility] Lymphocyte abs 1.3 0.8 - 3.3 K/cumm [facility] Monocyte abs 1.1(H) 0.2 - 0.8 K/cumm [facility] Eosinophil abs 0.0 0.0 - 0.5 K/cumm [facility] Basophil abs 0.0 0.0 - 0.1 K/cumm [facility] Neutrophil pct 77.0 % [facility] Comment: Interpretive Data Percent cell count reference ranges are not reported, since discordance with absolute values may lead to misinterpretation of CBC data. Current Interpretive Data was last revised on 2018. Imm gran pct 0.6 % [facility] Comment: Interpretive Data Percent cell count reference ranges are not reported, since discordance with absolute values may lead to misinterpretation of CBC data. Current Interpretive Data was last revised on 2018. Lymphocyte pct 12.0 % [facility] Comment: Interpretive Data Percent cell count reference ranges are not reported, since discordance with absolute values may lead to misinterpretation of CBC data. Current Interpretive Data was last revised on 2018. Monocyte pct 10.0 % [facility] Comment: Interpretive Data Percent cell count reference ranges are not reported, since discordance with absolute values may lead to misinterpretation of CBC data. Current Interpretive Data was last revised on 2018. Eosinophil pct 0.1 % [facility] Comment: Interpretive Data Percent cell count reference ranges are not reported, since discordance with absolute values may lead to misinterpretation of CBC data. Current Interpretive Data was last revised on 2018. Basophil pct 0.3 % [facility] Comment: Interpretive Data Percent cell count reference ranges are not reported, since discordance with absolute values may lead to misinterpretation of CBC data. Current Interpretive Data was last revised on 2018. Blood 09/12/2024 5:25 AM DIRECTOR OF BROADCAST 09/12/2024 5:37 AM DIRECTOR OF BROADCAST us Francisco Rowan MD LAB BLOOD ORDERABLES Final Result [facility] [address] [facility] [place] [address] * (ABNORMAL) CBC with auto differential (09/12/2024 5:25 AM DIRECTOR OF BROADCAST) WBC 10.7(H) 3.8 - 9.9 K/cumm Hgb 10.6(L) 11.9 - 15.5 g/dL [facility] Hct 31.7(L) 35.6 - 45.5 % [facility] Plt 339 150 - 400 K/cumm [facility] MPV 9.6 9.1 - 12.3 fL [facility] RBC 3.49(L) 3.90 - 5.20 M/cumm [facility] MCV 90.8 81.3 - 96.4 fL [facility] MCH 30.4 27.1 - 33.3 pg [facility] MCHC 33.4 32.3 - 35.7 g/dL [facility] RDW CV 12.8 11.1 - 14.9 % [facility] RDW SD 42.7 35.7 - 48.1 fL [facility] NRBC abs 0.00 0.00 - 0.01 K/cumm [facility] Blood 09/12/2024 5:25 AM DIRECTOR OF BROADCAST 09/12/2024 5:37 AM DIRECTOR OF BROADCAST us Francisco Rowan MD LAB BLOOD ORDERABLES Final Result [facility] [address] [facility] [place] [address] * Basic metabolic panel (09/12/2024 5:25 AM DIRECTOR OF BROADCAST) [facility] Sodium 140 135 - 145 mmol/L Potassium, pl 4.8 3.3 - 4.9 mmol/L [facility] Chloride 104 97 - 110 mmol/L [facility] CO2 28 22 - 32 mmol/L [facility] Anion gap 8 2 - 15 mmol/L [facility] BUN 15 6 - 25 mg/dL [facility] Creatinine 0.85 0.60 - 1.10 mg/dL [facility] Glucose 117 70 - 199 mg/dL [facility] Comment: Interpretive Data Fasting glucose >/= 126 [...] classification and Diagnosis of Diabetes Diabetes Care 2021; 46: S19-S40. Current interpretive data was last revised 2022. Calcium 9.1 8.5 - 10.3 mg/dL [facility] Blood 09/12/2024 5:25 AM DIRECTOR OF BROADCAST 09/12/2024 5:37 AM DIRECTOR OF BROADCAST Francisco Rowan MD LAB BLOOD ORDERABLES Final Result [facility] [address] [facility] [place] [address] * FL Fluoroscopy < 1 Hour (09/11/2024 11:06 AM DIRECTOR OF BROADCAST) Narrative [email or web address] - 09/11/2024 11:07 AM DIRECTOR OF BROADCAST The images from this study are not interpreted by Radiology. ??Please refer to the physician's procedure / OR operative note. us Francisco Rowan MD IMG FLUOROSCOPY PROCEDURES Final Result Performing Organization Address City/[facility]/ZIP Co de Phone Number [email or web address] * WY AN ELECTIVE ENDOTRACHEAL AIRWAY, [place] AN PROCEDURE PLACEHOLDER (09/11/2024 8:07 AM DIRECTOR OF BROADCAST) Narrative Yeu Hedrick CRNA - 09/11/2024 8:07 AM DIRECTOR OF BROADCAST Yue Hedrick CRNA ? 09/11/2024 ??8:07 AM Airway Patient location: OR Urgency: elective Indications for airway management: anesthesia Difficult airway: no Staff: Supervising provider: Js Weinstein MD Placed by: COKE INSPECTOR: Yue Hedrick CRNA Emergent airway documentation: Risks [...] MD ANESTHESIA ORDERABLES Final Resu lt * [place] AN PROCEDURE PLACEHOLDER (09/11/2024 7:38 AM DIRECTOR OF BROADCAST) Narrative Js Weinstein MD - 09/11/2024 7:38 AM DIRECTOR OF BROADCAST Jayesh Brito MD ? 09/11/2024 ??7:39 AM [...] MD ANESTHESIA ORDERABLES Final Resu lt * [place] AN PROCEDURE PLACEHOLDER (09/11/2024 7:38 AM DIRECTOR OF BROADCAST) Narrative Js Weinstein MD - 09/11/2024 7:38 AM DIRECTOR OF BROADCAST Jayesh Brito MD ? 09/11/2024 ??7:38 AM [...] patient tolerated procedure well with no complications Js Weinstein MD ANESTHESIA ORDERABLES Final Resu lt from Last 3 Months Insurance MEDICARE [facility] MEDICARE [facility] Address: [address] [address] [facility] Advance Directives For more information, please contact: [phone] * Full Code (Latest Code Status on File) Date Activated Date Inactivated Comments 09/11/2024 1:33 PM 09/12/2024 3:03 PM Care Teams Community Health Consultant Relationship Specialty Start Date End Date Jamar Hastings MD [facility] - General 12/04/10
== END 2024-11-27 12:45 | disposition home or self-care (01) ==
PROVIDERS: PCP Internal Medicine; Referring Provider Internal Medicine; Visit Provider Orthopaedic Surgery
DX: Z01.818 Encounter for other preprocedural examination (principal); M17.11 Unilateral primary osteoarthritis, right knee; S83.511A Sprain of anterior cruciate ligament of right knee, initial encounter; M25.461 Effusion, right knee; M71.21 Synovial cyst of popliteal space [Baker], right knee; M62.58 Muscle wasting and atrophy, not elsewhere classified, other site
CPT/HCPCS: 73030; 73700

== ENCOUNTER 2024-12-31 10:29 | Outpatient (CLI) | payer MEDICARE, SELFPAY ==
--- NOTE | 2024-12-31 10:36 | ECG_ITS ---
Test Date: 2024-12-31 10:47:35 Measurements Intervals [place] Rate: 65 P: -19 DE: 195 QRS: 61 QRSD: 96 T: 10 QT: 399 QTc: 415 Interpretive Statements SINUS RHYTHM No previous ECG available for comparison Electronically Signed On 01-01-2025 15:28:40 DRYWALL INSTALLER by Giovany Morales M.D.
--- OUTSIDE RECORDS SUMMARY | 2024-12-31 11:51 | XMS_ITS | Referral Summary ---
Author Organization [facility] Address [address] [place] [address] Care Team Providers Care Acoustical Engineer Name Role Phone Unavailable Primary Care Provider Unavailabl e Source Comments [facility],non-owned Affiliates and Associated Physician Practices is amultiple site organization consisting of ambulatory clinics and hospital sitesin [place], [place], [place] and [place]. This disclosure is being madepursuant to the Care Everywhere program and may not contain all information available regarding this patient. Last updated 18.[facility] Social History Tobacco Use Types Packs/Day Years Used Date Smoking Tobacco: Never Assessed Sex and Gender Information Value Date Recorded Sex Assigned at Not on file Gender Identity Not on file Sexual Orientation Not on file Plan of Treatment Not on file
--- OUTSIDE RECORDS SUMMARY | 2024-12-31 11:51 | XMS_ITS | Clinical Summary ---
Author Organization [facility] Address [address] [place] [address] Care Team Providers Care Physician Representative Name Role Phone Jamar Hastings MD Primary Care Provider [phone] Active Problems Problem Noted Date Diagnosed Date [...] age to complete this topic Insurance MEDICARE [facility] INSURANCE Care Teams Physician Representative Relationship Specialty Start Date End Date Jamar Hastings MD [address] [place] [address] PCP - General INTERNAL MEDICINE 07/26/23
--- OUTSIDE RECORDS SUMMARY | 2024-12-31 11:51 | XMS_ITS | Clinical Summary ---
Author Organization [facility] Address [address] [place] [address] Care Team Providers Care Deliverer Outside Name Role Phone Jamar Hastings MD Primary Care Provider [phone] Allergies Active Allergy Reactions Criticality Noted Date [...] upplement Take 2 tablet/capsul e by mouth early childhood assistant before breakfast Active acetaminophen 500 mg capsuleIndications :Pain Take 2 capsules (1,000 mg total) by mouth every 8 (eight) hours Active apixaban (ELIQUIS) 2.5 mg tabletIndications: VTE [...] Encounters Date Type Department Care Team Description 12/13/2024 9:50 AM CORE FILER Office Visit [facility] [address] 1st Floor [address] [place] [address] Francisco Rowan MD Arthritis of left ankle (Primary Dx) 12/13/2024 9:29 AM CORE FILER - 12/13/2024 11:59 PM CORE FILER Hospital Encounter [facility] Radiology at [facility] [address] [place] [address] Arthritis of left ankle Discharge Disposition: Discharge to home or self care 11/26/2024 Telephone [facility] [address] 1st [address] [place] [address] Donato Hernández ATC 11/12/2024 9:20 AM CORE FILER Office Visit [facility] [address] [facility] 6th [place] [address] [place] [address] Francisco Rowan MD Left ankle pain, unspecified chronicity (Primary Dx); Arthritis of left ankle; Arthritis of left subtalar joint 11/12/2024 8:45 AM CORE FILER - 11/12/2024 11:59 PM CORE FILER Hospital Encounter [facility] [address] [place] [address] Left ankle pain, unspecified chronicity Discharge Disposition: Discharge to home or self care 11/06/2024 Telephone [facility] [address] [facility] [address] 1st [address] [place] [address] Donato Hernández ATC 10/18/2024 12:00 PM CORE FILER Office Visit [facility] [address] [facility] 1st [address] [place] [address] Francisco Rowan MD Arthritis of left ankle (Primary Dx); Arthritis of left subtalar joint 10/18/2024 11:59 AM CORE FILER - 10/18/2024 11:59 PM CORE FILER Hospital Encounter [facility] Radiology at [facility] [address] [place] [address] Arthritis of left ankle Discharge Disposition: Discharge to home or self care from Last 3 Months Immunizations Immunization Administration Dates Next Due Influenza, Trivalent, High [...] EGD 10/31/2023 - 10/30/2024 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 HEALTHCARE CONSULTANT surgeries X2 CHOLECYSTECTOMY unknown date Medical History [...] on file Legal Sex Female 1:01 PM CORE FILER Gender Identity Not on file Sexual Orientation Not on file Obstetrics History Last Filed Vital Signs Vital Sign Reading Time Taken Comments Blood Pressure 141/67 09/12/2024 9:00 AM CORE FILER Pulse 89 09/12/2024 9:00 AM CORE FILER Temperature 37 C (98.6 F) 09/12/2024 8:08 AM CORE FILER Respiratory Rate 20 09/12/2024 8:08 AM CORE FILER Oxygen Saturation 100% 09/12/2024 9:00 AM CORE FILER Inhaled Oxygen Concentration - - Weight 69.4 kg (153 lb) 12/13/2024 9:38 AM CORE FILER Height 152.4 cm (5') 12/13/2024 9:38 AM CORE FILER Body Mass Index 29.88 12/13/2024 9:38 AM CORE FILER Plan of Treatment Health Maintenance Due Date Last Done Comments Breast Cancer Screening-Mammogram 1960 Colon Cancer Screening-Colonoscopy 1960 Depression Screening 1960 Hepatitis C Screening 1960 Osteoporosis Screening-Bone Density Scan 1958 Hepatitis B Screening 1976 Pneumococcal vaccine 65+ (1 of 1 - PCV) 2008 DTaP/Tdap/Td Vaccine (2 - Td or Tdap) 02/07/202207/2012 Well Visit 65+ 2023 Covid-19 Vaccine ( - season) 2024 11/30/2021, 01/27/2021, 01/06/2021 Fall Risk Assessment 09/12/2025 09/12/2024 Zoster Vaccine Completed 04/24/2019, 12/29, 12/27/2016 Influenza Vaccine Completed 09/12/2024, 08/18/2017 Medical Devices Implanted Type Area Press Feeder Device Identifier Shelf Expiration Date Model / Serial / Lot [employer] Graft Bone Filler Cortical Cancellous Cyro Freezer Arthrocell 5cc Putty Abs-2008- - [id number] - [id number] Implanted:Qty: 1 on 09/11/2024 by Francisco Rowan MD at [facility] Left: Ankle [employer] 06/20/2026 ABS-2008- 5 / [id number] / [id number] [employer] Low Profile Screws 6.7mm 75mm 28mm Self Drill Self Tap Cannulated [id number] - [id number] Implanted:Qty: 1 on 09/11/2024 by Francisco Rowan MD at [facility] Left: Ankle [employer] AR-[id number] 75 / / [employer] Low Profile Screws 4.5mm 38mm Self Drill Self Tap Cannulated Hex [id number] - [id number] Implanted:Qty: 1 on 09/11/2024 by Francisco Rowan MD at [facility] Left: Ankle [employer] AR-8945-38 PT / / [employer] Low Profile Screws 4.5mm 34mm Self Drill Self Tap Cannulated Hex [id number] - [id number] Implanted:Qty: 1 on 09/11/2024 by Francisco Rowan MD at [facility] Left: Ankle [employer] AR-8945-34 PT / / [employer] Staple Compression Supermx [id number] Nitinol [id number] - [id number] Implanted:Qty: 1 on 09/11/2024 by Francisco Rowan MD at [facility] Left: Ankle [employer] [id number] 04/29/2029 AR-8719MXD S-1818 / / [id number] [employer] Staple Compression Supermx [id number] Nitinol [id number] - [id number] Implanted:Qty: 1 on 09/11/2024 by Francisco Rowan MD at [facility] Left: Ankle [employer] [id number] 04/29/2029 AR-8719MXD S-1818 / / [id number] [employer] Staple Compression Supermx [id number] Nitinol [id number] - [id number] Implanted:Qty: 1 on 09/11/2024 by Francisco Rowan MD at [facility] Left: Ankle [employer] [id number] 04/29/2029 AR-8719MXD S-2020 / / [id number] Procedures Procedure Name Priority Date/Time Associated Diagnosis Comments XR ANKLE LEFT 2 VIEWS Schedule Routine, Read Routine (OP Routine) 12/13/2024 9:34 AM CORE FILER Arthritis of left ankle XR FOOT LEFT 3 OR MORE VIEWS Schedule Routine, Read Routine (OP Routine) 12/13/2024 9:34 AM CORE FILER Arthritis of left ankle XR ANKLE LEFT 2 VIEWS Schedule Routine, Read Routine (OP Routine) 11/12/2024 9:35 AM CORE FILER Left ankle pain, unspecified chronicity XR FOOT LEFT 3 OR MORE VIEWS Schedule Routine, Read Routine (OP Routine) 11/12/2024 9:35 AM CORE FILER Left ankle pain, unspecified chronicity ORTHO CASTING/SPLINTING Routine 10/18/2024 1:09 PM CORE FILER Arthritis of left ankle Arthritis of left subtalar joint XR FOOT LEFT 3 OR MORE VIEWS Schedule Routine, Read Routine (OP Routine) 10/18/2024 12:03 PM CORE FILER Arthritis of left ankle XR ANKLE LEFT 2 VIEWS Schedule Routine, Read Routine (OP Routine) 10/18/2024 12:03 PM CORE FILER Arthritis of left ankle from Last 3 Months Results * XR Foot Left 3 or More Views (12/13/2024 9:34 AM CORE FILER) Anatomical Region Laterality Modality Lower Extremities, Foot Left Computed Radiography 12/13/2024 10:0 2 AM CORE FILER Impressions 12/13/2024 10:02 AM CORE FILER 1. Healing triple hindfoot arthrodesis with intact instrumentation. Electronically signed by: Len Mejia D.O. Narrative 12/13/2024 10:02 AM CORE FILER EXAMINATION: XR FOOT LEFT 3 OR MORE VIEWS, XR ANKLE LEFT 2 VIEWS HISTORY: pain FINDINGS: Comparison is made to 11/12/2024 radiograph. Triple hindfoot instrumented arthrodesis is redemonstrated. Instrumentation is intact. There appears to be interval osseous bridging with decreased visibility of the joint lines. Diffuse decreased osseous mineralization. Moderate 1st metatarsophalangeal osteophytes. Mild midfoot osteoarthritis. Moderate talocrural osteoarthritis. Mild diffuse soft tissue swelling. Pes planovalgus. Procedure Note Len Mejia, DO - 12/13/2024 EXAMINATION: XR FOOT LEFT 3 OR MORE VIEWS, XR ANKLE LEFT 2 VIEWS HISTORY: pain FINDINGS: Comparison is made to 11/12/2024 radiograph. Triple hindfoot instrumented arthrodesis is redemonstrated. Instrumentation is intact. There appears to be interval osseous bridging with decreased visibility of the joint lines. Diffuse decreased osseous mineralization. Moderate 1st metatarsophalangeal osteophytes. Mild midfoot osteoarthritis. Moderate talocrural osteoarthritis. Mild diffuse soft tissue swelling. Pes planovalgus. IMPRESSION: 1. Healing triple hindfoot arthrodesis with intact instrumentation. Electronically signed by: Len Mejia D.O. us Francisco Rowan MD IMG XR PROCEDURES Final Res ult * XR Ankle Left 2 Views (12/13/2024 9:34 AM CORE FILER) Anatomical Region Laterality Modality Lower Extremities, Ankle Left Compute d Radiography 12/13/2024 10:0 2 AM CORE FILER Impressions 12/13/2024 10:02 AM CORE FILER 1. Healing triple hindfoot arthrodesis with intact instrumentation. Electronically signed by: Len Mejia D.O. Narrative 12/13/2024 10:02 AM CORE FILER EXAMINATION: XR FOOT LEFT 3 OR MORE VIEWS, XR ANKLE LEFT 2 VIEWS HISTORY: pain FINDINGS: Comparison is made to 11/12/2024 radiograph. Triple hindfoot instrumented arthrodesis is redemonstrated. Instrumentation is intact. There appears to be interval osseous bridging with decreased visibility of the joint lines. Diffuse decreased osseous mineralization. Moderate 1st metatarsophalangeal osteophytes. Mild midfoot osteoarthritis. Moderate talocrural osteoarthritis. Mild diffuse soft tissue swelling. Pes planovalgus. Procedure Note Len Mejia, DO - 12/13/2024 EXAMINATION: XR FOOT LEFT 3 OR MORE VIEWS, XR ANKLE LEFT 2 VIEWS HISTORY: pain FINDINGS: Comparison is made to 11/12/2024 radiograph. Triple hindfoot instrumented arthrodesis is redemonstrated. Instrumentation is intact. There appears to be interval osseous bridging with decreased visibility of the joint lines. Diffuse decreased osseous mineralization. Moderate 1st metatarsophalangeal osteophytes. Mild midfoot osteoarthritis. Moderate talocrural osteoarthritis. Mild diffuse soft tissue swelling. Pes planovalgus. IMPRESSION: 1. Healing triple hindfoot arthrodesis with intact instrumentation. Electronically signed by: Len Mejia D.O. Francisco Rowan MD IMG XR PROCEDURES Final Res ult * XR Foot Left 3 or More Views (11/12/2024 9:35 AM CORE FILER) Anatomical Region Laterality Modality Lower Extremities, Foot Left Computed Radiography 11/12/2024 10:2 0 AM CORE FILER Impressions 11/12/2024 10:20 AM CORE FILER 1. Unchanged triple hindfoot arthrodesis with intact instrumentation. Electronically signed by: Len Mejia D.O. Narrative 11/12/2024 10:20 AM CORE FILER EXAMINATION: XR FOOT LEFT 3 OR MORE [...] Ankle Left 2 Views (11/12/2024 9:35 AM CORE FILER) Anatomical Region Laterality Modality Lower Extremities, Ankle Left Compute d Radiography 11/12/2024 10:2 0 AM CORE FILER Impressions 11/12/2024 10:20 AM CORE FILER 1. Unchanged triple hindfoot arthrodesis with intact instrumentation. Electronically signed by: Len Mejia D.O. Narrative 11/12/2024 10:20 AM CORE FILER EXAMINATION: XR FOOT LEFT 3 OR MORE [...] Mild diffuse soft tissue swelling. Procedure Note Selinjack Len Bowen, - 11/12/2024 EXAMINATION: XR FOOT LEFT 3 [...] * Ortho Casting/Splinting Documentation (10/18/2024 1:09 PM CORE FILER) Narrative Stiven Donald RMA - 10/18/2024 1:09 PM CORE FILER Stiven Donald RMA 10/18/2024 1:10 PM Ortho Casting/Splinting Documentation Date/Time: 10/18/2024 1:09 PM Performed by: Stiven Donald RMA Authorized by: Francisco Rowan MD Sensation: Normal Skin Condition: Clean, dry, and intact [place]/Sutures Removed: No Pin Pulled: No Cast Removed: Yes Cast Applied: No Overwrap: No Location: Foot Foot: L foot Supplies: Cast removal only Capillary Refill: Normal Patient tolerance of procedure: Tolerated well, no immediate complications us Francisco Rowan MD IN CLINIC/BEDSIDE ORDERABLE S Final Result * XR Foot Left 3 or More Views (10/18/2024 12:03 PM CORE FILER) Anatomical Region Laterality Modality Lower Extremities, Foot Left Computed Radiography 10/18/2024 12:1 0 PM CORE FILER Impressions 10/18/2024 12:10 PM CORE FILER 1. Interval instrumented triple hindfoot arthrodesis without osseous fusion. Electronically signed by: Len Mejia D.O. Narrative 10/18/2024 12:10 PM CORE FILER EXAMINATION: XR ANKLE LEFT 2 VIEWS, XR [...] Ankle Left 2 Views (10/18/2024 12:03 PM CORE FILER) Anatomical Region Laterality Modality Lower Extremities, Ankle Left Compute d Radiography 10/18/2024 12:1 0 PM CORE FILER Impressions 10/18/2024 12:10 PM CORE FILER 1. Interval instrumented triple hindfoot arthrodesis without osseous fusion. Electronically signed by: Len Mejia D.O. Narrative 10/18/2024 12:10 PM CORE FILER EXAMINATION: XR ANKLE LEFT 2 VIEWS, XR [...] fusion. Electronically signed by: Len Mejia D.O. Francisco Rowan MD IMG XR PROCEDURES Final Res ult from Last 3 Months Insurance MEDICARE [facility] MEDICARE [facility] Advance Directives For more information, please contact: [phone] * Full Code (Latest Code Status on File) Date Activated Date Inactivated Comments 09/11/2024 1:33 PM 09/12/2024 3:03 PM Care Teams Deliverer Outside Relationship Specialty Start Date End Date Jamar Hastings MD PCP - General 12/04/10
--- OUTSIDE RECORDS SUMMARY | 2024-12-31 11:51 | XMS_ITS | Data Portability ---
Author Organization [place] [facility] [employer], Main Office Address [address] [place] [address] Care Team Providers Care Domestic Helper Name Role Phone TRISTEN LESTER Primary Care Provider TRISTEN LESTER Referring Provider Assessment Encounter Date Assessment Date Assessment LastModified [...] more than half the time spent in aibk-bn-bjqt care. Not available 06/19/2023 21:53:19 07/11/2023 07/11/2023 [...] think she will have an excellent result halfway. She wishes that left 1 done as [...] wrist 023 06/17/20 23 [email or web address] [facility], [address], [place], [address], 3 10:19:55 Medication Orders None recorde d. [...] No observ ation record ed. [facility] [address], [place], [address], 06/19/2023 21:44:29 06/23/20 23 06/22/2023 elect felipechacha diogr am No observ ation record ed. [email or web address] [facility] [address] [place], [address], 06/23/2023 16:24:08 Result Notes None recorded. Problems Name Problem SNOMED Code Status Onset Date Resolution Date Notes Provider Name and Address Organization Details Recorded Time Closed fracture of head of radius 59123640 Active Not Available [facility] 3 12:44:43 Bilateral wrist pain 5339344373964 9105 Active 2022 CLARISSA Rashid, [facility] [employer] [facility] 3 10:49:29 Bilateral carpal tunnel syndrome 8309212577611 9101 Active 2022 CLARISSA Rashid null, [place] [facility] 3 15:16:58 Carpal tunnel syndrome of right wrist 4859143735093 08 Active 2022 CLARISSA Rashid null, [facility] [employer] [facility] 3 15:17:09 Problem Notes None recorded. Procedures Surgical History Date Name Laterality Status Provider Name and Address Organization Details Recorded Time Back Surgery completed CLARISSA Rashid [facility] 06/17/2023 10:47:52 cervical arthrodesis completed CLARISSA Rashid [facility] 06/17/2023 10:48:21 Knee Surgery completed Cyndee Monahan Horace [facility] 06/17/2023 10:48:27 Imaging Results Imaging Date Name Status LastModified by Organization Details LastModified Time 05/25/2023 electromyogram + nerve conduction study completed [email or web address] Information not available 06/01/2023 10:56:23 06/17/2023 XR, wrist completed [facility] [address], [place], [address], 06/19/2023 21:44:29 06/22/2023 electrocardiogram completed [email or web address] [place] [address] [address] [place], [address], 06/23/2023 16:24:08 Procedure Notes None recorded. Medical [...] Updated DateTime 06/17/2023 157.48 cm 28.2 kg/m2 17283.22 g CLARISSA Rashid [facility] [employer] [facility] 06/17/2023 10:51:56 Date Recorded Body height Provider Name an d Address Organization Details Last Updated DateTime 07/11/2023 157.48 cm Cyndee Monahan Horace [facility] [employer] [facility] 07/11/2023 15:15:50 Date Recorded Body height Provider Name an d Address Organization Details Last Updated DateTime 08/03/2023 157.48 cm CLARISSA Rashid [facility] [employer] [facility] 08/03/2023 14:28:56 Social History Question Answer Notes LastModified by Organizat ion Details LastModified Time Tobacco Smoking Status Never Smoker CLARISSA Rashid [facility] [employer] [facility] 06/17/2023 10:47:44 What Is Your Level Of Alcohol Consumption? None [email or web address] Information not available 06/17/2023 Sex: Unknown Functional Status None recorded. Mental Status None recorded. Family History Relationship Description Onset Age of this Age Resolved Age Notes LastModified by Organization Details LastModified Time Father Family history of stroke [email or web address] Not available 2022 10:47:38 Medical History Condition Response ARTHRITIS Y CANCER: SPECIFY Y Gynecological HistoryNo gynecological history recorded. Obstetrics History GPAL:G 0 P 0 0 0 0 Past Encounters Encounter ID Performer Location Encounter Start Date Encounter Closed Date Diagnosis/Indication Diagnosis SNOMED-CT Code Diagnosis ICD10 Code Diagnosis Note [id number] Reese Hicks MD [facility] [address] [place] [address] 06/17/2023 10:04:01 06/20/2023 10:19:54 Bilateral wrist pain 9878163521 6894407 M25.531 M25.332 [id number] DEO Ross [facility] [address] [place], [place] [address] 07/11/2023 15:12:23 07/11/2023 16:24:56 Carpal tunnel syndrome of right wrist 8422358520 89099 G56.01 [id number] DEO Ross [facility] [address] [place] [address] 08/03/2023 14:23:26 08/03/2023 16:31:36 Carpal tunnel syndrome of right wrist 2998839795 53667 G56.01 Health Concerns Section Related Observation LastModified by Organization Detai ls LastModified Time None Recorded Concern Status LastModified by Organization Details LastModified Time None Recorded Advance Directives Directive None Recorded Payers Encounter Date Sequence Insurance Name Policy Number Policy Lees Covered Member ID Lees Member ID Guarantor Name 06/17/2023 1 [place] Dayana Danielle Becca [id number] Dayana Hudson 06/17/2023 [address] [facility] [employer] - PLAN F (MEDICARE SUPPLEMENT) Dayana Danielle Becca [id number] Dayana Danielle Becca 07/11/2023 1 [place] Dayana Danielle Becca [id number] Dayana Danielle Becca 07/11/2023 2 [facility] - PLAN F (MEDICARE SUPPLEMENT) Dayana Danielle Becca [id number] Dayana Danielle Becca 08/03/2023 1 [place] Dayana Danielle Becca [id number] Dayana M Bintalat 08/03/2023 2 [facility] - PLAN F (MEDICARE SUPPLEMENT) Dayana Danielle Becca [id number] Dayana [place] Notes Date Note Type Note [...] 40 mg twice daily. Reese Hicks MD [address] [place] [address], [place], [address], [place] [employer] [facility] 06/19/2023 21:53:32 OBGyn Episode No OBEpisode recorded.
--- OUTSIDE RECORDS SUMMARY | 2024-12-31 11:51 | XMS_ITS | Patient Health Summary ---
Author Organization [facility] Address [address] [place] [address] Care Team Providers Care Tufter Operator Name Role Phone Unavailable Primary Care Provider Unavailabl e Note from [facility],non-owned Affiliates and Associated Physician Practices is amultiple site organization consisting of ambulatory clinics and hospital sitesin [place], [place], [place] and [place]. This disclosure is being madepursuant to the Care Everywhere program and may not contain all information available regarding this patient. Last updated 18.[facility] Social History Tobacco Use Types Packs/Day [...] RHEUMATOID FACTOR BLOOD QUANTITATIVE (10/05/2010 5:29 PM TIMBER MILL WORKER) Rheumatoid Factor 7.1 <60.0 IU/ml [facility] BLOOD SPECIMEN / Unknown 10/05/2010 5:29 PM TIMBER MILL WORKER 10/05/2010 5:29 PM TIMBER MILL WORKER Narrative Resulting Agency Comment Performed By [facility] [address] [place] [address] Gray Del Cid MD LAB - CHEMISTRY JU SANZ [facility] [address] [place] [address] * C-REACTIVE PROTEIN (10/05/2010 5:29 PM TIMBER MILL WORKER) C-Reactive Protein <0.5 <1.0 mg/dl mg/dl [facility] BLOOD SPECIMEN / Unknown 10/05/2010 5:29 PM TIMBER MILL WORKER 10/05/2010 5:29 PM TIMBER MILL WORKER Narrative Resulting Agency Comment Performed By [facility] Gray Del Cid MD LAB - CHEMISTRY JU SANZ [facility] [address] [place] [address] * JALYN BLOOD SCREEN (10/05/2010 5:29 PM TIMBER MILL WORKER) JALYN Negative Negative [facility] BLOOD SPECIMEN / Unknown 10/05/2010 5:29 PM TIMBER MILL WORKER 10/05/2010 5:29 PM TIMBER MILL WORKER Narrative Resulting Agency Comment Performed By [facility] [address] [place] [address] Gray Del Cid MD LAB - CHEMISTRY JU SANZ [facility] [address] [place] [address] * SED RATE WESTERGREN AUTO (10/05/2010 5:29 PM TIMBER MILL WORKER) Erythrocyte Sedimentation Rate Westergren 13 0 - 30 mm/Hr [facility] BLOOD SPECIMEN / Unknown 10/05/2010 5:29 PM TIMBER MILL WORKER 10/05/2010 5:29 PM TIMBER MILL WORKER Gray Del Cid MD LAB - HEMATOLOGY ORD ERABLES [facility] [address] [place] [address]
--- OUTSIDE RECORDS SUMMARY | 2024-12-31 11:51 | XMS_ITS | Continuity of Care Document ---
Author Organization [facility] Address [address] [place] [address] [address] [place] [address] Phone Care Team Providers Care Drier Belt Conveyor Name Role Phone Jamir Morgan Unavailable Unavailable Procedures Procedure Date Office/outpatient Visit, [facility] Advance Directives Directive Yes / No Effective Date File Name No Information Encounters Encounter Description Practice Location Reason(s) For Visit Diagnoses Date Provider Providers Copied on Encounter Office/outpat ient Visit, [facility], [address], [place], [place], [id number], [place] tel:[phone] [facility] No Information [address] Cathy [address]ie. [address] , [address], [place], [address], [place]. tel:[phone] Family History Family Member Type Diagnosis Age At Onset No Information Payers Payer name Insurance type Covered democrat ID Lluvia kraft(s) [facility] CI [id number] Social History Type Description Quantity Date Captured [...]
--- OUTSIDE RECORDS SUMMARY | 2024-12-31 11:51 | XMS_ITS | Clinical Summary ---
Author Organization [facility] Address [address] [place] [address] Phone Care Team Providers Care Doll Wig Maker Name Role Phone Jamar Hastings MD Primary Care Provider [phone] Allergies Active Allergy Reactions Criticality Noted Date [...] 74 05/23/2019 2:49 PM CDT Temperature 37.3 C (99.2 F) 05/23/2019 2:49 PM CDT Respiratory Rate 16 05/23/2019 2:49 PM CDT [...] Colonography Q 5 years 2003 PNEUMOCOCCAL VACCINE 50+ YEARS (1 of 1 - PCV) 06/08/20 08 ZOSTER VACCINE (1 of 2) 2008 OSTEOPOROSIS SCREENING 2023 INFLUENZA VACCINE (#1) 2024 RSV VACCINE (60+ or ) (1 - 1-dose 75+ series) 2033 Medical Devices Implanted Type Area Senior Staff Consultant Device Identifier Shelf Expiration Date Model / Serial / Lot Cage Elevate X-Dunia 28x9mm [id number] - [id number] Implanted:Qty: 1 on 05/21/2019 by Manjeet Marie MD at [facility] N/A: Spine Lumbar [employer]- SOFAMOR DANEK 03/02/2027 [id number] / / [id number] Sealant Floseal 5ml [id number] - [id number] Implanted:Qty: 1 on 05/21/2019 by Manjeet Marie MD at [facility] Sealant N/A: Spine Lumbar DOSS- BIOSCIENCE 10/11/2020 [id number] / / [id number] [place] Dbm 8x10cm [id number] - [id number] Implanted:Qty: 1 on 05/21/2019 by Manjeet Marie MD at [facility] N/A: Spine Lumbar [employer] 12/25/2021 [id number] / [id number] / Matrix Dura Regenerative Durepair 1in [id number] - [id number] Implanted:Qty: 1 on 05/21/2019 by Manjeet Marie MD at [facility] N/A: Spine Lumbar [employer] INC 03/30/2021 [id number] / / [id number] Screw Set Implanted:Qty: 6 on 05/21/2019 by Manjeet Marie MD at [facility] N/A: Spine Lumbar [id number] / / Description:item add c.s load [id number] Screw 7.5x40mm Implanted:Qty: 3 on 05/21/2019 by Manjeet Marie MD at [facility] N/A: Spine Lumbar [id number] / / Description:item add c.s load [id number] Screw 6.5x40mm Implanted:Qty: 3 on 05/21/2019 by Manjeet Marie MD at [facility] N/A: Spine Lumbar [id number] / / Description:item add c.s load [id number] Screw 6.5x40mm Implanted:Qty: 3 on 05/21/2019 by Manjeet Marie MD at [facility] N/A: Spine Lumbar [id number] / / Description:item add c.s load [id number] Donte 80mm Implanted:Qty: 1 on 05/21/2019 by Manjeet Marie MD at [facility] N/A: Spine Lumbar [id number] / / Description:item add c.s load [id number] Donte 50mm Implanted:Qty: 1 on 05/21/2019 by Manjeet Marie MD at [facility] N/A: Spine Lumbar [id number] / / Description:item add c.s load [id number] Insurance [facility] BLUE ACCESS/TRUE BLUE PPO Advance Directives For more information, please contact: [phone] * Full Code (Latest Code Status on File) Date Activated Date Inactivated Comments 05/21/2019 5:01 PM 05/23/2019 5:35 PM Care Teams Doll Wig Maker Relationship Specialty Start Date End Date Jamar Hastings MD [address] [place] [address] PCP - General Internal Medicine 04/20/19
--- OUTSIDE RECORDS SUMMARY | 2024-12-31 11:51 | XMS_ITS | Referral Summary ---
Author Organization [facility] Address [address] [place] [address] Care Team Providers Care Consulting Manager Name Role Phone Jamar Hastings MD Primary Care Provider [phone] Encounters Date Type Department Care Team Description 12/13/2024 9:29 AM LEAD QA ANALYST - 12/13/2024 11:59 PM LEAD QA ANALYST Hospital Encounter [facility] Radiology at [facility] [address] [place] [address] Arthritis of left ankle Discharge Disposition: Discharge to home or self care 12/13/2024 9:50 AM LEAD QA ANALYST Office Visit [facility] Orthopaedic Surgery [address] [facility] 1st Floor [address] [place] [address] Francisco Rowan MD Arthritis of left ankle (Primary Dx) 11/26/2024 Telephone [facility] Orthopaedic Surgery [address] [facility] 1st Floor [address] [place] [address] Donato Hernández, [facility] 11/12/2024 8:45 AM LEAD QA ANALYST - 11/12/2024 11:59 PM LEAD QA ANALYST Hospital Encounter [facility] [address] [place] [address] Left ankle pain, unspecified chronicity Discharge Disposition: Discharge to home or self care 11/12/2024 9:20 AM LEAD QA ANALYST Office Visit [facility] Orthopaedic Surgery [address] [facility] 6th [place] [address] [place] [address] Francisco Rowan MD Left ankle pain, unspecified chronicity (Primary Dx); Arthritis of left ankle; Arthritis of left subtalar joint 11/06/2024 Telephone [facility] Orthopaedic Surgery [address] [facility] 1st Floor [address] [place] [address] Donato Hernández ATC 10/18/2024 11:59 AM LEAD QA ANALYST - 10/18/2024 11:59 PM LEAD QA ANALYST Hospital Encounter 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 Active acetaminophen 500 mg capsuleIndications [...] 09/11/2024 Arthritis of left ankle 08/03/2024 Immunizations Immunization Administration Dates Next Due Influenza, [...] on file Legal Sex Female 1:01 PM LEAD QA ANALYST Gender Identity Not on file Sexual Orientation Not on file Last Filed Vital Signs Vital Sign Reading Time Taken Comments Blood Pressure 141/67 09/12/2024 9:00 AM LEAD QA ANALYST Pulse 89 09/12/2024 9:00 AM LEAD QA ANALYST Temperature 37 C (98.6 F) 09/12/2024 8:08 AM LEAD QA ANALYST Respiratory Rate 20 09/12/2024 8:08 AM LEAD QA ANALYST Oxygen Saturation 100% 09/12/2024 9:00 AM LEAD QA ANALYST Inhaled Oxygen Concentration - - Weight 69.4 kg (153 lb) 12/13/2024 9:38 AM LEAD QA ANALYST Height 152.4 cm (5') 12/13/2024 9:38 AM LEAD QA ANALYST Body Mass Index 29.88 12/13/2024 9:38 AM LEAD QA ANALYST Plan of Treatment Not on file Medical Devices Implanted Type Area Lacquer Maker Device Identifier Shelf Expiration Date Model / Serial / Lot Arthrex Inc Graft Bone Filler Cortical Cancellous Cyro Freezer Arthrocell [facility] Putty Abs-2008- - [id number] - [id number] Implanted:Qty: 1 on 09/11/2024 by Francisco Rowan MD at [facility] Left: Ankle Arthrex Inc 06/20/2026 ABS- 5 / [id number] / [id number]- Ar[employer]rex Inc Low Profile Screws 6.7mm 75mm 28mm Self Drill Self Tap Cannulated [id number] - [id number] Implanted:Qty: 1 on 09/11/2024 by Francisco Rowan MD at [facility] Left: Ankle Arthrex Inc AR-8967-28 75 / / Arthrex Inc Low Profile Screws 4.5mm 38mm Self Drill Self Tap Cannulated Hex Kd-[id number] - [id number] Implanted:Qty: 1 on 09/11/2024 by Francisco Rowan MD at [facility] Left: Ankle Ar[employer]rex Inc AR-8945-38 PT / / Arthrex Inc Low Profile Screws 4.5mm 34mm Self Drill Self Tap Cannulated Hex Pi-[id number] - [id number] Implanted:Qty: 1 on 09/11/2024 by Francisco Rowan MD at [facility] Left: Ankle Arthrex Inc AR-8945-34 PT / / Arthrex Inc Staple Compression Supermx [id number] Nitinol [id number] - [id number] Implanted:Qty: 1 on 09/11/2024 by Francisco Rowan MD at [facility] Left: Ankle Ar[employer]rex Inc [id number] 04/29/2029 AR-8719MXD S-1818 / / [id number] Ar[employer]rex Inc Staple Compression Supermx [id number] Nitinol Hg-[id number] - [id number] Implanted:Qty: 1 on 09/11/2024 by Francisco Rowan MD at [facility] Left: Ankle Ar[employer]rex Inc [id number] 04/29/2029 AR-8719MXD S-1818 / / [id number] Arthrex Inc Staple Compression Supermx [id number] Nitinol [id number] - [id number] Implanted:Qty: 1 on 09/11/2024 by Francisco Rowan MD at [facility] Left: Ankle Arthrex Inc [id number] 04/29/2029 AR-8719MXD S-2020 / / [id number] Procedures Procedure Name Priority Date/Time Associated Diagnosis Comments XR ANKLE LEFT 2 VIEWS Schedule Routine, Read Routine (OP Routine) 12/13/2024 9:34 AM LEAD QA ANALYST Arthritis of left ankle XR FOOT LEFT 3 OR MORE VIEWS Schedule Routine, Read Routine (OP Routine) 12/13/2024 9:34 AM LEAD QA ANALYST Arthritis of left ankle XR ANKLE LEFT 2 VIEWS Schedule Routine, Read Routine (OP Routine) 11/12/2024 9:35 AM LEAD QA ANALYST Left ankle pain, unspecified chronicity XR FOOT LEFT 3 OR MORE VIEWS Schedule Routine, Read Routine (OP Routine) 11/12/2024 9:35 AM LEAD QA ANALYST Left ankle pain, unspecified chronicity ORTHO CASTING/SPLINTING Routine 10/18/2024 1:09 PM LEAD QA ANALYST Arthritis of left ankle Arthritis of left subtalar joint XR FOOT LEFT 3 OR MORE VIEWS Schedule Routine, Read Routine (OP Routine) 10/18/2024 12:03 PM LEAD QA ANALYST Arthritis of left ankle XR ANKLE LEFT 2 VIEWS Schedule Routine, Read Routine (OP Routine) 10/18/2024 12:03 PM LEAD QA ANALYST Arthritis of left ankle from Last 3 Months Results * XR Foot Left 3 or More Views (12/13/2024 9:34 AM LEAD QA ANALYST) Anatomical Region Laterality Modality Lower Extremities, Foot Left Computed Radiography 12/13/2024 10:0 2 AM LEAD QA ANALYST Impressions 12/13/2024 10:02 AM LEAD QA ANALYST 1. Healing triple hindfoot arthrodesis with intact instrumentation. Electronically signed by: Len Mejia D.O. Narrative 12/13/2024 10:02 AM LEAD QA ANALYST EXAMINATION: XR FOOT LEFT 3 OR MORE [...] Ankle Left 2 Views (12/13/2024 9:34 AM LEAD QA ANALYST) Anatomical Region Laterality Modality Lower Extremities, Ankle Left Compute d Radiography 12/13/2024 10:0 2 AM LEAD QA ANALYST Impressions 12/13/2024 10:02 AM LEAD QA ANALYST 1. Healing triple hindfoot arthrodesis with intact instrumentation. Electronically signed by: Len Mejia D.O. Narrative 12/13/2024 10:02 AM LEAD QA ANALYST EXAMINATION: XR FOOT LEFT 3 OR MORE [...] by: Len Mejia D.O. Francisco Rowan MD [facility] [place] PROCEDURES Final Res ult * XR Foot Left 3 or More Views (11/12/2024 9:35 AM LEAD QA ANALYST) Anatomical Region Laterality Modality Lower Extremities, Foot Left Computed Radiography 11/12/2024 10:2 0 AM LEAD QA ANALYST Impressions 11/12/2024 10:20 AM LEAD QA ANALYST 1. Unchanged triple hindfoot arthrodesis with intact instrumentation. Electronically signed by: Len Mejia D.O. Narrative 11/12/2024 10:20 AM LEAD QA ANALYST EXAMINATION: XR FOOT LEFT 3 OR MORE [...] by: Len Mejia D.O. Francisco Rowan MD IM XR PROCEDURES Final Res ult * XR Ankle Left 2 Views (11/12/2024 9:35 AM LEAD QA ANALYST) Anatomical Region Laterality Modality Lower Extremities, Ankle Left Compute d Radiography 11/12/2024 10:2 0 AM LEAD QA ANALYST Impressions 11/12/2024 10:20 AM LEAD QA ANALYST 1. Unchanged triple hindfoot arthrodesis with intact instrumentation. Electronically signed by: Len Mejia D.O. Narrative 11/12/2024 10:20 AM LEAD QA ANALYST EXAMINATION: XR FOOT LEFT 3 OR MORE [...] * Ortho Casting/Splinting Documentation (10/18/2024 1:09 PM LEAD QA ANALYST) Narrative Stiven Donald RMA - 10/18/2024 1:09 PM LEAD QA ANALYST Stiven Donald RMA 10/18/2024 1:10 PM Ortho Casting/Splinting Documentation Date/Time: 10/18/2024 1:09 PM Performed by: Stiven Donald RMA Authorized by: Francisco Rowan MD Sensation: Normal Skin Condition: Clean, dry, and intact [place]/Sutures Removed: No Pin Pulled: No Cast Removed: Yes Cast Applied: No Overwrap: No Location: Foot Foot: L foot Supplies: Cast removal only Capillary Refill: Normal Patient tolerance of procedure: Tolerated well, no immediate complications us Francisco Rowan MD IN CLINIC/BEDSIDE ORDERABLE S Final Result * XR Foot Left 3 or More Views (10/18/2024 12:03 PM LEAD QA ANALYST) Anatomical Region Laterality Modality Lower Extremities, Foot Left Computed Radiography 10/18/2024 12:1 0 PM LEAD QA ANALYST Impressions 10/18/2024 12:10 PM LEAD QA ANALYST 1. Interval instrumented triple hindfoot arthrodesis without osseous fusion. Electronically signed by: Len Mejia D.O. Narrative 10/18/2024 12:10 PM LEAD QA ANALYST EXAMINATION: XR ANKLE LEFT 2 VIEWS, XR [...] Ankle Left 2 Views (10/18/2024 12:03 PM LEAD QA ANALYST) Anatomical Region Laterality Modality Lower Extremities, Ankle Left Compute d Radiography 10/18/2024 12:1 0 PM LEAD QA ANALYST Impressions 10/18/2024 12:10 PM LEAD QA ANALYST 1. Interval instrumented triple hindfoot arthrodesis without osseous fusion. Electronically signed by: Len Mejia D.O. Narrative 10/18/2024 12:10 PM LEAD QA ANALYST EXAMINATION: XR ANKLE LEFT 2 VIEWS, XR [...] ult from Last 3 Months Insurance MEDICARE [facility] MEDICARE [facility] Advance Directives For more information, please contact: [phone] * Full Code (Latest Code Status on File) Date Activated Date Inactivated Comments 09/11/2024 1:33 PM 09/12/2024 3:03 PM Care Teams Consulting Manager Relationship Specialty Start Date End Date Jamar Hastings MD PCP - General 12/04/10
--- OUTSIDE RECORDS SUMMARY | 2024-12-31 11:51 | XMS_ITS | Clinical Summary ---
Author Organization [facility] Address [address] [address] Care Team Providers Care Customer Service Attendant Name Role Phone Unavailable Primary Care Provider Unavailabl e Source Comments [facility],non-owned Affiliates and Associated Physician Practices is amultiple site organization consisting of ambulatory clinics and hospital sitesin [place], [place], [place] and [place]. This disclosure is being madepursuant to the Care Everywhere program and may not contain all information available regarding this patient. Last updated 18.[facility] Social History Tobacco Use Types Packs/Day Years [...] LIPID TESTING 1958 MAMMOGRAM 1958 MEDICARE AWV 12 MONTHS 1958 HEPATITIS C SCREENING 06/03/1976 [...]
--- OUTSIDE RECORDS SUMMARY | 2024-12-31 11:51 | XMS_ITS | Clinical Summary ---
Author Organization [facility] Address [address] [place] [address] Phone Care Team Providers Care Guest Relations Manager Name Role Phone Jamar Hastings MD Primary Care Provider [phone] Social History Tobacco Use Types Packs/Day Years [...] 1958 Hepatitis C Virus (HCV) Screening 1958 Mammogram 1958 Colonoscopy 2003 Colorectal Cancer Screening 2003 Cologuard 2008 Immunochemical Fecal Occult Blood 2008 Pneumococcal Immunization (50+ years) (1 of [...] patient's age to complete this topic Insurance [facility] Care Teams Guest Relations Manager Relationship Specialty Start Date End Date Jamar Hastings MD [address] [place] [address] PCP - General Internal Medicine 05/10/23
== END 2024-12-31 10:30 | disposition home or self-care (01) ==
LOC: CHSCARD 10:33
PROVIDERS: PCP Internal Medicine; Visit Provider Orthopaedic Surgery
DX: R09.89 Other specified symptoms and signs involving the circulatory and respiratory systems (principal)
CPT/HCPCS: 93005

== ENCOUNTER 2025-02-04 00:10 | Day surgery (SDC) | payer MEDICARE, SELFPAY ==
[2025-01-21 15:21] VITALS: BMI 26.6
--- OUTSIDE RECORDS SUMMARY | 2025-02-04 00:18 | XMS_ITS | Data Portability ---
Author Organization [facility] Main Office Address [address] [place] [address] Care Team Providers Care Corporate Compliance Director Name Role Phone TRISTEN LESTER Primary Care Provider [phone] TRISTEN LESTER Referring Provider Assessment Encounter Date [...] more than half the time spent in ealb-qe-[id number] care. Not available 06/19/2023 21:53:19 07/11/2023 07/11/2023 [...] think she will have an excellent result detention. She wishes that left 1 done as [...] wrist 023 06/17/20 23 [email or web address] [facility], [address], [place], [address], 3 10:19:55 Medication Orders None recorde d. [...] No observ ation record ed. [facility] [address], [place], [address], 06/19/2023 21:44:29 06/23/20 23 06/22/2023 elect felipechacha diogr am No observ ation record ed. [email or web address] [place] [address] [place], [address], 06/23/2023 16:24:08 Result Notes None recorded. Problems Name Problem SNOMED Code Status Onset Date Resolution Date Notes Provider Name and Address Organization Details Recorded Time Closed fracture of head of radius 77107207 Active Not Available [facility] 3 12:44:43 Bilateral wrist pain 4411788116330 9105 Active 2022 CLARISSA Rashid, [facility] [employer] [facility] 3 10:49:29 Bilateral carpal tunnel syndrome 8567996197510 9101 Active 2022 CLARISSA Rashid null, [place] [facility] 3 15:16:58 Carpal tunnel syndrome of right wrist 9259090360139 08 Active 2022 CLARISSA Rashid null, [facility] [employer] [facility] 3 15:17:09 Problem Notes None recorded. Procedures Surgical History Date Name Laterality Status Provider Name and Address Organization Details Recorded Time Back Surgery completed CLARISSA Rashid [facility] 06/17/2023 10:47:52 cervical arthrodesis completed CLARISSA Rashid [facility] 06/17/2023 10:48:21 Knee Surgery completed Cyndee Monahan Horace [facility] 06/17/2023 10:48:27 Imaging Results Imaging Date Name Status LastModified by Organization Details LastModified Time 05/25/2023 electromyogram + nerve conduction study completed [email or web address] Information not available 06/01/2023 10:56:23 06/17/2023 XR, wrist completed [facility] [address], [place], [address], 06/19/2023 21:44:29 06/22/2023 electrocardiogram completed [email or web address] [place] [address] [address] [place], [address], 06/23/2023 16:24:08 Procedure Notes None recorded. Medical [...] Updated DateTime 06/17/2023 157.48 cm 28.2 kg/m2 50805.22 g CLARISSA Rashid [facility] [employer] [facility] 06/17/2023 10:51:56 Date Recorded Body height Provider Name an d Address Organization Details Last Updated DateTime 07/11/2023 157.48 cm Cyndee Monahan Horace [facility] [employer] [facility] 07/11/2023 15:15:50 Date Recorded Body height Provider Name an d Address Organization Details Last Updated DateTime 08/03/2023 157.48 cm CLARISSA Rashid [facility] [employer] [facility] 08/03/2023 14:28:56 Social History Question Answer Notes LastModified by Organizat ion Details LastModified Time Tobacco Smoking Status Never Smoker CLARISSA Rashid [facility] [employer] [facility] 06/17/2023 10:47:44 What Is Your Level Of Alcohol Consumption? None [email or web address] Information not available 06/17/2023 Sex: Unknown Functional Status None recorded. Mental Status None recorded. Family History Relationship Description Onset Age of this Age Resolved Age Notes LastModified by Organization Details LastModified Time Father Family history of stroke Not available 2022 10:47:38 Medical History Condition Response ARTHRITIS Y CANCER: SPECIFY Y Gynecological HistoryNo gynecological history recorded. Obstetrics History GPAL:G 0 P 0 0 0 0 Past Encounters Encounter ID Performer Location Encounter Start Date Encounter Closed Date Diagnosis/Indication Diagnosis SNOMED-CT Code Diagnosis ICD10 Code Diagnosis Note [id number] Reese Hicks MD [facility] [place] [address] [place] [address] 06/17/2023 10:04:01 06/20/2023 10:19:54 Bilateral wrist pain 7770300353 8189104 M25.531 M25.063 [id number] DEO Ross [facility] [address] [place] [address] 07/11/2023 15:12:23 07/11/2023 16:24:56 Carpal tunnel syndrome of right wrist 4788010026 08407 G56.01 [id number] DEO Ross [facility] [address] [place], [place] [address] 08/03/2023 14:23:26 08/03/2023 16:31:36 Carpal tunnel syndrome of right wrist 9960568344 47644 G56.01 Health Concerns Section Related Observation LastModified by Organization Detai ls LastModified Time None Recorded Concern Status LastModified by Organization Details LastModified Time None Recorded Advance Directives Directive None Recorded Payers Encounter Date Sequence Insurance Name Policy Number Policy Lees Covered Member ID Lees Member ID Guarantor Name 06/17/2023 1 [place] Dayana Danielle Becca [id number] Dayana M Becca 06/17/2023 2 [employer] - PLAN F (MEDICARE SUPPLEMENT) Dayana Hudson [id number] Dayana M Binney 07/11/2023 1 [place] Dayana M Robertney [id number] Dayana M Binney 07/11/2023 2 [employer] - PLAN F (MEDICARE SUPPLEMENT) Dayana M Becca [id number] Dayana M Binney 08/03/2023 1 [place] Dayana M Binney [id number] Dayana M Binney 08/03/2023 2 [employer] - PLAN F (MEDICARE SUPPLEMENT) Dayana M Becca [id number] Dayana M Becca Notes Date Note Type Note Provider Name [...] 40 mg twice daily. Reese Hicks MD [address] [place] [address], [address], [place], [address], [place] [facility] [employer] [facility] 06/19/2023 21:53:32 OBGyn Episode No OBEpisode recorded.
--- OUTSIDE RECORDS SUMMARY | 2025-02-04 00:18 | XMS_ITS | Clinical Summary ---
Author Organization [facility] Address [address] [place] [address] Phone Care Team Providers Care Deputy County Attorney Name Role Phone Jamar Hastings MD Primary Care Provider [phone] Allergies Active Allergy Reactions Criticality Noted Date [...] series) 2033 Medical Devices Implanted Type Area Human Resource Advisor Device Identifier Shelf Expiration Date Model / Serial / Lot Cage Elevate X-Dunia 28x9mm [id number] - [id number] Implanted:Qty: 1 on 05/21/2019 by Manjeet Marie MD at [facility] N/A: Spine Lumbar MED[employer]- SOFAMOR DANEK 03/02/2027 [id number] / / [id number] Sealant Floseal 5ml [id number] - [id number] Implanted:Qty: 1 on 05/21/2019 by Manjeet Marie MD at [facility] Sealant N/A: Spine Lumbar DOSS- BIOSCIENCE 10/11/2020 [id number] / / [id number] [place] Dbm 8x10cm [id number] - [id number] Implanted:Qty: 1 on 05/21/2019 by Manjeet Marie MD at [facility] N/A: Spine Lumbar [employer] 12/25/2021 [id number] / [id number] / Matrix Dura Regenerative Durepair 1in [id number] - [id number] Implanted:Qty: 1 on 05/21/2019 by Manjeet Marie MD at [facility] N/A: Spine Lumbar [employer] INC 03/30/2021 [id number] / / [id number] Screw Set Implanted:Qty: 6 on 05/21/2019 by Manjeet Marie MD at [facility] N/A: Spine Lumbar [id number] / / Description:item add c.s load [id number] Screw 7.5x40mm Implanted:Qty: 3 on 05/21/2019 by Manjeet Marie MD at [facility] N/A: Spine Lumbar [id number] / / Description:item add c.s load [id number] Screw 6.5x40mm Implanted:Qty: 3 on 05/21/2019 by Manjeet Marie MD at [facility] N/A: Spine Lumbar [id number] / / Description:item add c.s load [id number] Screw 6.5x40mm Implanted:Qty: 3 on 05/21/2019 by Manjeet Marie MD at [facility] N/A: Spine Lumbar [id number] / / Description:item add c.s load [id number] Donte 80mm Implanted:Qty: 1 on 05/21/2019 by Manjeet Marie MD at [facility] N/A: Spine Lumbar [id number] / / Description:item add c.s load [id number] Donte 50mm Implanted:Qty: 1 on 05/21/2019 by Manjeet Marie MD at [facility] N/A: Spine Lumbar [id number] / / Description:item add c.s load [id number] Insurance [facility] BLUE ACCESS/TRUE BLUE PPO Advance Directives For more information, please contact: [phone] * Full Code (Latest Code Status on File) Date Activated Date Inactivated Comments 05/21/2019 5:01 PM 05/23/2019 5:35 PM Care Teams Deputy County Attorney Relationship Specialty Start Date End Date Jamar Hastings MD [address] [place] [address] PCP - General Internal Medicine 04/20/19
--- OUTSIDE RECORDS SUMMARY | 2025-02-04 00:18 | XMS_ITS | Clinical Summary ---
Author Organization [facility] Address [address] [place] [address] Care Team Providers Care River Rafting Guide Name Role Phone Unavailable Primary Care Provider Unavailabl e Source Comments [facility],non-owned Affiliates and Associated Physician Practices is amultiple site organization consisting of ambulatory clinics and hospital sitesin [place], [place], [place] and [place]. This disclosure is being madepursuant to the Care Everywhere program and may not contain all information available regarding this patient. Last updated 18.[facility] Social History Tobacco Use Types Packs/Day Years [...] VACCINE (1 - 2023-2 5 season) 2024 DEPRESSION SCREENING 10/31/2024 INFLUENZA VACCINE (Season Ended) 2025 Respiratory Syncytial Virus (RSV) Vaccine Pt: or [...] to complete this topic MENINGOCOCCAL (Group B) VACC INE SHARED DECISION-MAKING Aged Out No longer eligibl e based on patient's age to complete this topic MENINGOCOCCAL GROUPS A/C/Y/W VACCINE Aged Out No longer eligible b ased on patient's age to complete this topic
--- OUTSIDE RECORDS SUMMARY | 2025-02-04 00:18 | XMS_ITS | Clinical Summary ---
Author Organization [facility] Address [address] [place] [address] Care Team Providers Care Cartridge Maker Name Role Phone Jamar Hastings MD Primary Care Provider [phone] Allergies Active Allergy Reactions Criticality Noted Date [...] upplement Take 2 tablet/capsul e by mouth interactive developer before breakfast Active acetaminophen 500 mg capsuleIndications [...] Encounters Date Type Department Care Team Description 01/09/2025 Telephone [facility] Orthopaedic Surgery [address] [place] [address] Donato Hernández, [facility] 12/13/2024 9:50 AM MOTOR VEHICLE LECTURER Office Visit [facility] Orthopaedic Surgery [address] 1st Floor [address] [place] [address] Francisco Rowan MD Arthritis of left ankle (Primary Dx) 12/13/2024 9:29 AM MOTOR VEHICLE LECTURER - 12/13/2024 11:59 PM MOTOR VEHICLE LECTURER Hospital Encounter [facility] Radiology at [facility] [address] [place] [address] Arthritis of left ankle Discharge Disposition: Discharge to home or self care 11/26/2024 Telephone [facility] Orthopaedic Surgery [address] 1st [address] [place] [address] Donato Hernández, ATC 11/12/2024 9:20 AM MOTOR VEHICLE LECTURER Office Visit [facility] Orthopaedic Surgery [address] [place] [address] [facility] 6th [place] [address] [place] [address] Francisco Rowan MD Left ankle pain, unspecified chronicity (Primary Dx); Arthritis of left ankle; Arthritis of left subtalar joint 11/12/2024 8:45 AM MOTOR VEHICLE LECTURER - 11/12/2024 11:59 PM MOTOR VEHICLE LECTURER Hospital Encounter [facility] [address] [place] [address] Left ankle pain, unspecified chronicity Discharge Disposition: Discharge to home or self care 11/06/2024 Telephone [facility] Orthopaedic Surgery [address] [place] [address] Donato Hernández ATC from Last 3 Months Immunizations Immunization Administration [...] EGD 10/31/2023 - 10/30/2024 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 CARDIAC CATH TECH surgeries X2 CHOLECYSTECTOMY unknown date Medical History [...] on file Legal Sex Female 1:01 PM MOTOR VEHICLE LECTURER Gender Identity Not on file Sexual Orientation Not on file Obstetrics History Last Filed Vital Signs Vital Sign Reading Time Taken Comments Blood Pressure 141/67 09/12/2024 9:00 AM MOTOR VEHICLE LECTURER Pulse 89 09/12/2024 9:00 AM MOTOR VEHICLE LECTURER Temperature 37 C (98.6 F) 09/12/2024 8:08 AM MOTOR VEHICLE LECTURER Respiratory Rate 20 09/12/2024 8:08 AM MOTOR VEHICLE LECTURER Oxygen Saturation 100% 09/12/2024 9:00 AM MOTOR VEHICLE LECTURER Inhaled Oxygen Concentration - - Weight 69.4 kg (153 lb) 12/13/2024 9:38 AM MOTOR VEHICLE LECTURER Height 152.4 cm (5') 12/13/2024 9:38 AM MOTOR VEHICLE LECTURER Body Mass Index 29.88 12/13/2024 9:38 AM MOTOR VEHICLE LECTURER Plan of Treatment Health Maintenance Due Date [...] 09/12/2024, 08/18/2017 Medical Devices Implanted Type Area Junior Oracle Dba Device Identifier Shelf Expiration Date Model / Serial / Lot Arthrex Inc Graft Bone Filler Cortical Cancellous Cyro Freezer Arthrocell [facility] Putty Abs-2009-05 - [id number] - [id number] Implanted:Qty: 1 on 09/11/2024 by Francisco Rowan MD at [facility] Left: Ankle Arthrex Inc 06/20/2026 5 / [id number] / [id number] Arthrex Inc Low Profile Screws 6.7mm 75mm 28mm Self Drill Self Tap Cannulated Ko-[id number] - [id number] Implanted:Qty: 1 on 09/11/2024 by Francisco Rowan MD at [facility] Left: Ankle Arthrex Inc AR-8967-28 75 / / Arthrex Inc Low Profile Screws 4.5mm 38mm Self Drill Self Tap Cannulated Hex [id number]-[id number] - [id number] Implanted:Qty: 1 on 09/11/2024 by Francisco Rowan MD at [facility] Left: Ankle Arthrex Inc AR-8945-38 PT / / Arthrex Inc Low Profile Screws 4.5mm 34mm Self Drill Self Tap Cannulated Hex Tp-[id number] - [id number] Implanted:Qty: 1 on 09/11/2024 by Francisco Rowan MD at [facility] Left: Ankle Arthrex Inc AR-8945-34 PT / / Arthrex Inc Staple Compression Supermx [id number] Nitinol Hl-[id number] - [id number] Implanted:Qty: 1 on 09/11/2024 by Francisco Rowan MD at [facility] Left: Ankle Arthrex Inc [id number] 04/29/2029 AR-8719MXD S-1818 / / [id number] Arthrex Inc Staple Compression Supermx [id number] Nitinol Xs-[id number] - [id number] Implanted:Qty: 1 on 09/11/2024 by Francisco Rowan MD at [facility] Left: Ankle Arthrex Inc [id number] 04/29/2029 AR-8719MXD S-1818 / / [id number] Arthrex Inc Staple Compression Supermx [id number] Nitinol Mu-[id number] - [id number] Implanted:Qty: 1 on 09/11/2024 by Francisco Rowan MD at [facility] Left: Ankle Arthrex Inc [id number] 04/29/2029 AR-8719MXD S-2019 / / [id number] Procedures Procedure Name Priority Date/Time Associated Diagnosis Comments XR ANKLE LEFT 2 VIEWS Schedule Routine, Read Routine (OP Routine) 12/13/2024 9:34 AM MOTOR VEHICLE LECTURER Arthritis of left ankle XR FOOT LEFT 3 OR MORE VIEWS Schedule Routine, Read Routine (OP Routine) 12/13/2024 9:34 AM MOTOR VEHICLE LECTURER Arthritis of left ankle XR ANKLE LEFT 2 VIEWS Schedule Routine, Read Routine (OP Routine) 11/12/2024 9:35 AM MOTOR VEHICLE LECTURER Left ankle pain, unspecified chronicity XR FOOT LEFT 3 OR MORE VIEWS Schedule Routine, Read Routine (OP Routine) 11/12/2024 9:35 AM MOTOR VEHICLE LECTURER Left ankle pain, unspecified chronicity from Last 3 Months Results * XR Foot Left 3 or More Views (12/13/2024 9:34 AM MOTOR VEHICLE LECTURER) Anatomical Region Laterality Modality Lower Extremities, Foot Left Computed Radiography 12/13/2024 10:0 2 AM MOTOR VEHICLE LECTURER Impressions 12/13/2024 10:02 AM MOTOR VEHICLE LECTURER 1. Healing triple hindfoot arthrodesis with intact instrumentation. Electronically signed by: Len Mejia D.O. Narrative 12/13/2024 10:02 AM MOTOR VEHICLE LECTURER EXAMINATION: XR FOOT LEFT 3 OR MORE [...] swelling. Pes planovalgus. Procedure Note Len Mejia, - 12/13/2024 EXAMINATION: XR FOOT LEFT 3 [...] Ankle Left 2 Views (12/13/2024 9:34 AM MOTOR VEHICLE LECTURER) Anatomical Region Laterality Modality Lower Extremities, Ankle Left Compute d Radiography 12/13/2024 10:0 2 AM MOTOR VEHICLE LECTURER Impressions 12/13/2024 10:02 AM MOTOR VEHICLE LECTURER 1. Healing triple hindfoot arthrodesis with intact instrumentation. Electronically signed by: Len Mejia D.O. Narrative 12/13/2024 10:02 AM MOTOR VEHICLE LECTURER EXAMINATION: XR FOOT LEFT 3 OR MORE [...] swelling. Pes planovalgus. Procedure Note Len Mejia, - 12/13/2024 EXAMINATION: XR FOOT LEFT 3 [...] 3 or More Views (11/12/2024 9:35 AM MOTOR VEHICLE LECTURER) Anatomical Region Laterality Modality Lower Extremities, Foot Left Computed Radiography 11/12/2024 10:2 0 AM MOTOR VEHICLE LECTURER Impressions 11/12/2024 10:20 AM MOTOR VEHICLE LECTURER 1. Unchanged triple hindfoot arthrodesis with intact instrumentation. Electronically signed by: Len Mejia D.O. Narrative 11/12/2024 10:20 AM MOTOR VEHICLE LECTURER EXAMINATION: XR FOOT LEFT 3 OR MORE [...] by: Len Mejia D.O. Francisco Rowan MD [facility] XR PROCEDURES Final Res ult * XR Ankle Left 2 Views (11/12/2024 9:35 AM MOTOR VEHICLE LECTURER) Anatomical Region Laterality Modality Lower Extremities, Ankle Left Compute d Radiography 11/12/2024 10:2 0 AM MOTOR VEHICLE LECTURER Impressions 11/12/2024 10:20 AM MOTOR VEHICLE LECTURER 1. Unchanged triple hindfoot arthrodesis with intact instrumentation. Electronically signed by: Len Mejia D.O. Narrative 11/12/2024 10:20 AM MOTOR VEHICLE LECTURER EXAMINATION: XR FOOT LEFT 3 OR MORE [...] by: Len Mejia D.O. Francisco Rowan MD [facility] XR PROCEDURES Final Res ult from Last 3 Months Insurance MEDICARE [place] [employer] [place] [employer] Advance Directives For more information, please contact: [phone] * Full Code (Latest Code Status on File) Date Activated Date Inactivated Comments 09/11/2024 1:33 PM 09/12/2024 3:03 PM Care Teams Cartridge Maker Relationship Specialty Start Date End Date Jamar Hastings MD PCP - General 12/04/10
--- OUTSIDE RECORDS SUMMARY | 2025-02-04 00:18 | XMS_ITS | Referral Summary ---
Author Organization [facility] Address [address] [place] [address] Care Team Providers Care Lay Out Machine Operator Name Role Phone Jamar Hastings MD Primary Care Provider [phone] Encounters Date Type Department Care Team Description 01/09/2025 Telephone [facility] Orthopaedic Surgery [address]st [address] [place] [address] Donato Hernández, ATC 12/13/2024 9:29 AM PLATE GRINDER - 12/13/2024 11:59 PM PLATE GRINDER Hospital Encounter [facility] Radiology at [facility] [address] [place] [address] Arthritis of left ankle Discharge Disposition: Discharge to home or self care 12/13/2024 9:50 AM PLATE GRINDER Office Visit [facility] Orthopaedic Surgery [address] 1st [address] [place] [address] Francisco Rowan MD Arthritis of left ankle (Primary Dx) 11/26/2024 Telephone [facility] Orthopaedic Surgery [address] 1st [address] [place] [address] BettyDonato elder, [facility] 11/12/2024 8:45 AM PLATE GRINDER - 11/12/2024 11:59 PM PLATE GRINDER Hospital Encounter [facility] Radiology [facility] [address] [place] [address] Left ankle pain, unspecified chronicity Discharge Disposition: Discharge to home or self care 11/12/2024 9:20 AM PLATE GRINDER Office Visit [facility] Orthopaedic Surgery [address] [facility] 6th [place] [address] [place] [address] Francisco Rowan MD Left ankle pain, unspecified chronicity (Primary Dx); Arthritis of left ankle; Arthritis of left subtalar joint 11/06/2024 Telephone [facility] Orthopaedic Surgery [address] [place] [address] Donato Hernández, KIKO from Last 3 Months Allergies Active Allergy [...] upplement Take 2 tablet/capsul e by mouth greenskeeper head before breakfast Active acetaminophen 500 mg capsuleIndications :Pain Take 2 capsules (1,000 mg total) by mouth every 8 (eight) hours 4 Active apixaban (ELIQUIS) 2.5 mg tabletIndications: VTE Prophylaxis Take 1 tablet (2.5 mg total) by mouth 2 (two) times a day Active docusate sodium (COLACE) 100 mg capsuleIndications :constipation Take 1 capsule (100 mg total) by mouth 2 (two) times a day Active oxyCODONE (ROXICODONE) 5 mg immediate release [...] on file Legal Sex Female 1:01 PM PLATE GRINDER Gender Identity Not on file Sexual Orientation Not on file Last Filed Vital Signs Vital Sign Reading Time Taken Comments Blood Pressure 141/67 09/12/2024 9:00 AM PLATE GRINDER Pulse 89 09/12/2024 9:00 AM PLATE GRINDER Temperature 37 C (98.6 F) 09/12/2024 8:08 AM PLATE GRINDER Respiratory Rate 20 09/12/2024 8:08 AM PLATE GRINDER Oxygen Saturation 100% 09/12/2024 9:00 AM PLATE GRINDER Inhaled Oxygen Concentration - - Weight 69.4 kg (153 lb) 12/13/2024 9:38 AM PLATE GRINDER Height 152.4 cm (5') 12/13/2024 9:38 AM PLATE GRINDER Body Mass Index 29.88 12/13/2024 9:38 AM PLATE GRINDER Plan of Treatment Not on file Medical Devices Implanted Type Area Water Resources Technical Officer Device Identifier Shelf Expiration Date Model / Serial / Lot Arthrex Inc Graft Bone Filler Cortical Cancellous Cyro Freezer Arthrocell 5cc Putty Abs - [id number] - [id number] Implanted:Qty: 1 on 09/11/2024 by Francisco Rowan MD at [facility] Left: Ankle Arthrex Inc 06/20/2026 5 / [id number] / [id number] Arthrex Inc Low Profile Screws 6.7mm 75mm 28mm Self Drill Self Tap Cannulated [id number]-[id number] - [id number] Implanted:Qty: 1 on 09/11/2024 by Francisco Rowan MD at [facility] Left: Ankle Arthrex Inc AR-8967-28 75 / / Arthrex Inc Low Profile Screws 4.5mm 38mm Self Drill Self Tap Cannulated Hex [id number]-[id number] - [id number] Implanted:Qty: 1 on 09/11/2024 by Francisco Rowan MD at [facility] Left: Ankle Arthrex Inc AR-8945-38 PT / / Arthrex Inc Low Profile Screws 4.5mm 34mm Self Drill Self Tap Cannulated Hex Ex-5616-70st - [id number] Implanted:Qty: 1 on 09/11/2024 by Francisco Rowan MD at [facility] Left: Ankle Arthrex Inc AR-8945-34 PT / / Arthrex Inc Staple Compression Supermx [id number] Nitinol [id number]-[id number] - [id number] Implanted:Qty: 1 on 09/11/2024 by Francisco Rowan MD at [facility] Left: Ankle Arthrex Inc [id number] 04/29/2029 AR-8719MXD S-1818 / / [id number] Arthrex Inc Staple Compression Supermx [id number] Nitinol Xf-[id number]-[id number] - [id number] Implanted:Qty: 1 on 09/11/2024 by Francisco Rowan MD at [facility] Left: Ankle Arthrex Inc [id number] 04/29/2029 AR-8719MXD S-1818 / / [id number] Arthrex Inc Staple Compression Supermx [id number] Nitinol [id number] - [id number] Implanted:Qty: 1 on 09/11/2024 by Francisco Rowan MD at [facility] Left: Ankle Arthrex Inc [id number] 04/29/2029 AR-8719MXD S-2020 / / [id number] Procedures Procedure Name Priority Date/Time Associated Diagnosis Comments XR ANKLE LEFT 2 VIEWS Schedule Routine, Read Routine (OP Routine) 12/13/2024 9:34 AM PLATE GRINDER Arthritis of left ankle XR FOOT LEFT 3 OR MORE VIEWS Schedule Routine, Read Routine (OP Routine) 12/13/2024 9:34 AM PLATE GRINDER Arthritis of left ankle XR ANKLE LEFT 2 VIEWS Schedule Routine, Read Routine (OP Routine) 11/12/2024 9:35 AM PLATE GRINDER Left ankle pain, unspecified chronicity XR FOOT LEFT 3 OR MORE VIEWS Schedule Routine, Read Routine (OP Routine) 11/12/2024 9:35 AM PLATE GRINDER Left ankle pain, unspecified chronicity from Last 3 Months Results * XR Foot Left 3 or More Views (12/13/2024 9:34 AM PLATE GRINDER) Anatomical Region Laterality Modality Lower Extremities, Foot Left Computed Radiography 12/13/2024 10:0 2 AM PLATE GRINDER Impressions 12/13/2024 10:02 AM PLATE GRINDER 1. Healing triple hindfoot arthrodesis with intact instrumentation. Electronically signed by: Len Mejia D.O. Narrative 12/13/2024 10:02 AM PLATE GRINDER EXAMINATION: XR FOOT LEFT 3 OR MORE [...] soft tissue swelling. Pes planovalgus. Procedure Note SelinjackLen, DO - 12/13/2024 EXAMINATION: XR FOOT LEFT [...] Ankle Left 2 Views (12/13/2024 9:34 AM PLATE GRINDER) Anatomical Region Laterality Modality Lower Extremities, Ankle Left Compute d Radiography 12/13/2024 10:0 2 AM PLATE GRINDER Impressions 12/13/2024 10:02 AM PLATE GRINDER 1. Healing triple hindfoot arthrodesis with intact instrumentation. Electronically signed by: Len Mejia D.O. Narrative 12/13/2024 10:02 AM PLATE GRINDER EXAMINATION: XR FOOT LEFT 3 OR MORE [...] tissue swelling. Pes planovalgus. Procedure Note Len Mejia DO - 12/13/2024 EXAMINATION: XR FOOT LEFT [...] 3 or More Views (11/12/2024 9:35 AM PLATE GRINDER) Anatomical Region Laterality Modality Lower Extremities, Foot Left Computed Radiography 11/12/2024 10:2 0 AM PLATE GRINDER Impressions 11/12/2024 10:20 AM PLATE GRINDER 1. Unchanged triple hindfoot arthrodesis with intact instrumentation. Electronically signed by: Len Mejia D.O. Narrative 11/12/2024 10:20 AM PLATE GRINDER EXAMINATION: XR FOOT LEFT 3 OR MORE [...] Ankle Left 2 Views (11/12/2024 9:35 AM PLATE GRINDER) Anatomical Region Laterality Modality Lower Extremities, Ankle Left Compute d Radiography 11/12/2024 10:2 0 AM PLATE GRINDER Impressions 11/12/2024 10:20 AM PLATE GRINDER 1. Unchanged triple hindfoot arthrodesis with intact instrumentation. Electronically signed by: Len Mejia D.O. Narrative 11/12/2024 10:20 AM PLATE GRINDER EXAMINATION: XR FOOT LEFT 3 OR MORE [...] tissue swelling. Procedure Note Len Mejia, - 11/12/2024 EXAMINATION: XR FOOT LEFT 3 [...] ult from Last 3 [place] [address] [facility] MEDICARE [facility] [employer] Advance Directives For more information, please contact: [phone] * Full Code (Latest Code Status on File) Date Activated Date Inactivated Comments 09/11/2024 1:33 PM 09/12/2024 3:03 PM Care Teams Lay Out Machine Operator Relationship Specialty Start Date End Date Jamar Hastings MD PCP - General 12/04/10
--- OUTSIDE RECORDS SUMMARY | 2025-02-04 00:18 | XMS_ITS | Clinical Summary ---
Author Organization [facility] Address [address] [place] [address] Care Team Providers Care Continuous Dryout Operator Helper Name Role Phone Jamar Hastings MD Primary Care Provider [phone] Active Problems Problem Noted Date Diagnosed Date [...] 2024 11/04/2022, 11/30/2021, 01/27/2021, Additional history exists RSV Immunization or 60+ Years (1 - [...] age to complete this topic Insurance MEDICARE [facility] INSURANCE Care Teams Continuous Dryout Operator Helper Relationship Specialty Start Date End Date Jamar Hastings MD [address] [place] [id number] PCP - General INTERNAL MEDICINE 07/26/23
--- OUTSIDE RECORDS SUMMARY | 2025-02-04 00:18 | XMS_ITS | Clinical Summary ---
Author Organization [facility] Address [address] [place] [address] Phone Care Team Providers Care General Handling Supervisor Name Role Phone Jamar Hastings MD Primary Care Provider [phone] Social History Tobacco Use Types Packs/Day Years [...] patient's age to complete this topic Insurance [facility] Care Teams General Handling Supervisor Relationship Specialty Start Date End Date Jamar Hastings MD [address] [place] [address] PCP - General Internal Medicine 05/10/23
--- OUTSIDE RECORDS SUMMARY | 2025-02-04 00:18 | XMS_ITS | Continuity of Care Document ---
Author Organization [facility] Address [address] [place] [address] [address] [place] [address] Phone Care Team Providers Care Liability Claims Manager Name Role Phone Jamir Morgan Unavailable Unavailable Procedures Procedure Date Office/outpatient Visit, [facility] Advance Directives Directive Yes / No Effective Date File Name No Information Encounters Encounter Description Practice Location Reason(s) For Visit Diagnoses Date Provider Providers Copied on Encounter Office/outpat ient Visit, [facility], [address], [place], [place], [id number], [place] tel:[phone] [facility] No Information [address] , [address], [place], [address], [place]. tel:[phone] Family History Family Member Type Diagnosis Age At Onset No Information Payers Payer name Insurance type Covered republican ID Lluvia kraft(s) [facility] CI [id number] Social History Type Description Quantity Date Captured [...]
[2025-02-04 06:36] VITALS: BP 126/68; PULSE 63; RESP 18; TEMP 36.3; O2SAT 98; BMI 25.6
[2025-02-04] MEDS: LACTATED RINGERS 1,000 ML 150 ML IV CONT (06:52)
--- NOTE | 2025-02-04 07:34 | WPDANESEPPF ---
Anes - Initial Pre Proc Eval Procedure: Operation Date: 02/04/25 08:00 Proposed Procedures p Screening Colonoscopy - Bernard Meadows DO Date/Time: 02/04/25 07:34 Surgeon: Bernard Meadows DO Pre Op Diagnosis: family history colon cancer Patient Data Age: 64 Gender: F Height: 1.6 m Weight: 65.7 kg Last Vital Signs Temp 97.4 F L 02/04/25 06:36 Pulse 63 02/04/25 06:36 Resp 18 02/04/25 06:36 BP 126/68 02/04/25 06:36 Pulse Ox 98 02/04/25 06:36 O2 Del Method Room Air 02/04/25 06:36 Allergies Allergy/AdvReac Type Severity Reaction Status Date / Time quinine AdvReac Severe CHILLS, Verified 02/04/25 06:42 NAUSEA AND VOMITING Contrast Media Allergy Severe ANAPHYLAXIS Uncoded 02/04/25 06:42 duloxetine AdvReac Nausea Uncoded 02/04/25 06:42 Home Medications ?Medication ?Instructions ?Recorded ?Confirmed ?Type acyclovir 200 mg capsule 400 mg PO BID PRN Outbreak 08/11/23 02/04/25 History atenolol 50 mg tablet 50 mg PO HS 08/11/23 02/04/25 History atorvastatin 10 mg tablet 10 mg PO HS 08/11/23 02/04/25 History magnesium oxide 400 mg PO BID 08/11/23 02/04/25 History omeprazole 40 mg capsule,delayed 40 mg PO BID 08/11/23 02/04/25 History release verapamil 120 mg 24 hr 120 mg PO QAM 08/11/23 02/04/25 History capsule,extended release zolpidem 10 mg tablet 10 mg PO HS 08/11/23 02/04/25 History hydrocodone 5 mg-acetaminophen 325 1 tablet PO Q8H PRN Pain 11/07/23 01/21/25 History mg tablet ondansetron 4 mg disintegrating 4 mg PO Q8H #30 tabs 11/25/23 02/04/25 Rx tablet cholecalciferol (vitamin D3) 25 50 mcg PO DAILY 01/21/25 02/04/25 History mcg (1,000 unit) capsule (Vitamin D3) Patient hx anesthesia problems: none Family hx anesthesia problems: none Results Review: All pre-operative results and documents have been reviewed as part of the pre-operative evaluation. [facility] Past Medical History Medical History Hypertension DVT (deep venous thrombosis) History of bruising easily History of blood clots History of stress test Anesthesia complication issues with waking up from general anesthesia previously History of gastric ulcer Cervical vertebral fusion TYE (obstructive sleep apnea) Nondisplaced fracture of neck of right radius Hyperlipidemia Surgical History Surgical History Status post total left knee replacement (~11/24/23) History of tubal ligation History of lumbar fusion H/O cervical discectomy History of laminectomy History of arthroscopy of left knee Hx laparoscopic cholecystectomy Family History Family History Father Hypertension Cerebrovascular accident Hyperlipidemia Peripheral vascular disease Hemiballismus Mother Hyperlipidemia Hypertension Osteoarthritis Sibling Hypertension Hyperlipidemia Asthma Anxiety Social History Social History Smoking status: Never smoker Alcohol intake: current Drinks per week: 3 Substance use: never Substance use type: does not use Do You Feel Safe in your Home?: Yes Lack of Transportation: No Lack of Food: Never True Current Housing: I Have Housing Concerned About Future Housing: No Difficulty Paying Gas/Electric Bills: No Difficulty Paying for Meds: No Currently Unemployed: No Education: High School Diploma/GED Difficulty w/ Childcare or Family Care: No Living arrangements: with family Additional living arrangements comments: HUSB Spiritual care concerns: No Anes - Eval Final PreProcedure Day of Procedure 02/04/25 07:34 Patient weight: normal Heart: regular rate and rhythm Lungs: clear to auscultation Airway: Mallampati scale class II Neurological: alert and oriented Last oral intake: >/= 8 hours ASA classification: III Emergent: no Anesthetic plan: proceed Anesthesia type and monitoring: general GIVS and standard monitoring Results Review: All pre-operative results and documents have been reviewed as part of the pre-operative evaluation. Informed Consent: The patient's anesthetic plan and its attendant risks and benefits were discussed with the patient/family/POA. Questions were solicited and answers provided to the satisfaction of the patient/family/POA.
--- NOTE | 2025-02-04 07:49 | PM.IMHP ---
H&P: HPI History of Present Illness Date/Time: 02/04/25 07:49 Chief Complaint: screening for colorectal cancer, family history of colon cancer Narrative: this is a 64-year-old woman who presents for colonoscopy. Her last colonoscopy was about 10 years ago. She has a sister who was diagnosed with colon cancer 1 year ago. She denies any hematochezia or melena. Review of Systems Review of Systems: All systems reviewed & are unremarkable except as noted in HPI and below Constitutional: Constitutional: Denies chills, Denies fever(s), Denies headache(s) and Denies weight loss Eyes: Eyes: Denies change in vision ENT: Denies dizziness, Denies headache(s), Denies neck mass and Denies throat swelling Cardiovascular: Cardiovascular: Denies chest pain, Denies lightheadedness and Denies dyspnea Respiratory: Respiratory: Denies cough, Denies dyspnea and Denies wheezing Gastrointestinal: Gastrointestinal: Denies abdominal pain, Denies change in bowel habits, Denies nausea and Denies vomiting Genitourinary: Genitourinary: Denies hematuria and Denies dysuria Musculoskeletal: Musculoskeletal: Reports as per HPI Integumentary/Breasts: Skin/Breast: Reports as per HPI Neurologic: Denies dizziness and Denies headache(s) Allergic/Immunologic: Allergic/Immunologic: Denies throat swelling and Denies wheezing PMFSH Past Medical History Medical History Hypertension DVT (deep venous thrombosis) History of bruising easily History of blood clots History of stress test Anesthesia complication issues with waking up from general anesthesia previously History of gastric ulcer Cervical vertebral fusion TYE (obstructive sleep apnea) Nondisplaced fracture of neck of right radius Hyperlipidemia Surgical History Surgical History Status post total left knee replacement (~11/24/23) History of tubal ligation History of lumbar fusion H/O cervical discectomy History of laminectomy History of arthroscopy of left knee Hx laparoscopic cholecystectomy Family History Family History Father Hypertension Cerebrovascular accident Hyperlipidemia Peripheral vascular disease Hemiballismus Mother Hyperlipidemia Hypertension Osteoarthritis Sibling Hypertension Hyperlipidemia Asthma Anxiety Social History Social History Smoking status: Never smoker Alcohol intake: current Drinks per week: 3 Substance use: never Substance use type: does not use Do You Feel Safe in your Home?: Yes Lack of Transportation: No Lack of Food: Never True Current Housing: I Have Housing Concerned About Future Housing: No Difficulty Paying Gas/Electric Bills: No Difficulty Paying for Meds: No Currently Unemployed: No Education: High School Diploma/GED Difficulty w/ Childcare or Family Care: No Living arrangements: with family Additional living arrangements comments: HUSB Spiritual care concerns: No Meds Home Medications and Allergies Home Medications ?Medication ?Instructions ?Recorded ?Confirmed ?Type acyclovir 200 mg capsule 400 mg PO BID PRN Outbreak 08/11/23 02/04/25 History atenolol 50 mg tablet 50 mg PO HS 08/11/23 02/04/25 History atorvastatin 10 mg tablet 10 mg PO HS 08/11/23 02/04/25 History magnesium oxide 400 mg PO BID 08/11/23 02/04/25 History omeprazole 40 mg capsule,delayed 40 mg PO BID 08/11/23 02/04/25 History release verapamil 120 mg 24 hr 120 mg PO QAM 08/11/23 02/04/25 History capsule,extended release zolpidem 10 mg tablet 10 mg PO HS 08/11/23 02/04/25 History hydrocodone 5 mg-acetaminophen 325 1 tablet PO Q8H PRN Pain 11/07/23 01/21/25 History mg tablet ondansetron 4 mg disintegrating 4 mg PO Q8H #30 tabs 11/25/23 02/04/25 Rx tablet cholecalciferol (vitamin D3) 25 50 mcg PO DAILY 01/21/25 02/04/25 History mcg (1,000 unit) capsule (Vitamin D3) Allergies Allergy/AdvReac Type Severity Reaction Status Date / Time quinine AdvReac Severe CHILLS, Verified 02/04/25 06:42 NAUSEA AND VOMITING Contrast Media Allergy Severe ANAPHYLAXIS Uncoded 02/04/25 06:42 duloxetine AdvReac Nausea Uncoded 02/04/25 06:42 Vital Signs Vital Signs - 24 hr 02/04/25 06:36 Temperature 97.4 F L Pulse Rate 63 Respiratory Rate 18 Blood Pressure 126/68 Pulse Oximetry 98 Oxygen Delivery Room Air Exam Const: General: no acute distress and alert Orientation/consciousness: patient oriented x3 HENMT: Head: normocephalic and atraumatic Ears: hearing grossly normal bilaterally Face/Nose/Sinus: Normal nares present Mouth: Yes Normal oral and palatal mucosa present Eyes: Periorbital: periorbital findings normal Sclera: sclerae normal EOM: EOMs intact bilaterally Neck: Neck: normal visual inspection, no lymphadenopathy and trachea midline Chest: Chest palpation & inspection: normal inspection of the chest Resp: Effort & Inspection: normal respiratory effort Auscultation: clear to auscultation bilaterally Cardio: Jugular venous distension: no JVD Rate: regular rate Rhythm: regular rhythm Heart sounds: S1 normal heart sound present and S2 normal heart sound present Peripheral pulses: Peripheral pulses 2+ throughout GI: Inspection: normal to inspection GI Palp: Yes Soft to palpation, No Tenderness to palpation present (GI), No Guarding due to palpation present (GI) and No Rebound tenderness present Percussion: Yes normal to percussion Auscultation: normal bowel sounds : General: Yes no CVA tenderness Back/Spine/Pelvis: Back: no CVA tenderness Neuro: General: patient oriented x3, no focal motor deficits and CN's II-XI intact bilaterally Cognition (Neuro): normal cognition Speech: normal speech Motor exam (neuro): 5/5 motor strength present throughout Extrem: General: capillary refill normal and no clubbing, cyanosis or edema Assessment and Plan Assessment and plan (1) Family history of colon cancer: Code(s): Z80.0 - Family history of malignant neoplasm of digestive organs Status: Acute Assessment and Plan: I have recommended colonoscopy. I have discussed the procedure, risks, benefits, and alternatives. Questions were answered. Patient is agreeable to proceed.
[2025-02-04 08:20] VITALS: BP 133/75; PULSE 63; RESP 19; O2SAT 100
[2025-02-04 08:30] VITALS: BP 126/70; PULSE 67; RESP 21; O2SAT 100
[2025-02-04 08:40] VITALS: BP 135/84; PULSE 68; RESP 20; O2SAT 100
== END 2025-02-04 08:46 | disposition home or self-care (01) ==
PROVIDERS: PCP Internal Medicine; Visit Provider Surgery
PROC: 0DJD8ZZ Inspection of Lower Intestinal Tract, Via Natural or Artificial Opening Endoscopic (ICD-10-PCS; CPT 45378; principal; 2025-02-04 08:00)
DX: Z12.11 Encounter for screening for malignant neoplasm of colon (principal); Z80.0 Family history of malignant neoplasm of digestive organs; D12.3 Benign neoplasm of transverse colon; D12.5 Benign neoplasm of sigmoid colon; D12.8 Benign neoplasm of rectum; Z86.718 Personal history of other venous thrombosis and embolism; G47.33 Obstructive sleep apnea (adult) (pediatric); E78.5 Hyperlipidemia, unspecified; I10 Essential (primary) hypertension
CPT/HCPCS: 45380; 45385; 88305; J2704; J7120

== ENCOUNTER 2025-03-08 08:02 | Outpatient (CLI) | payer MEDICARE, SELFPAY ==
--- OUTSIDE RECORDS SUMMARY | 2025-03-08 08:09 | XMS_ITS | Clinical Summary ---
Author Organization [facility] Address [address] [place] [address] Care Team Providers Care Internal Salesperson Name Role Phone Unavailable Primary Care Provider Unavailabl e Source Comments [facility],non-owned Affiliates and Associated Physician Practices is amultiple site organization consisting of ambulatory clinics and hospital sitesin [place], [place], [place] and [place]. This disclosure is being madepursuant to the Care Everywhere program and may not contain all information available regarding this patient. 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
--- OUTSIDE RECORDS SUMMARY | 2025-03-08 08:09 | XMS_ITS | Continuity of Care Document ---
Author Organization [facility] Address [address] [place] [address] [address] [place] [address] Phone Care Team Providers Care Plate Preparer Name Role Phone Jamir [place] Unavailable Unavailable Procedures Procedure Date Office/outpatient Visit, [facility] Advance Directives Directive Yes / No Effective Date File Name No Information Encounters Encounter Description Practice Location Reason(s) For Visit Diagnoses Date Provider Providers Copied on Encounter Office/outpat ient Visit, [facility], [address], [place], [place], [id number], [place] tel:[phone] [facility] No Information [address]. [address] , [address], [place], [address], [place]. tel:[phone] Family History Family Member Type Diagnosis Age At Onset No Information Payers Payer name Insurance type Covered republican ID Lluvia kraft(s) [facility] CI [id number] Social History Type Description Quantity Date Captured [...]
--- OUTSIDE RECORDS SUMMARY | 2025-03-08 08:09 | XMS_ITS | Clinical Summary ---
Author Organization [facility] Address [address] [place] [address] Phone Care Team Providers Care Licensed Weigher Name Role Phone Jamar Hastings MD Primary Care Provider [phone] Social History Tobacco Use Types Packs/Day Years [...] patient's age to complete this topic Insurance [facility] Care Teams Licensed Weigher Relationship Specialty Start Date End Date Jamar Hastings MD [address] [place] [address] PCP - General Internal Medicine 05/10/23
--- OUTSIDE RECORDS SUMMARY | 2025-03-08 08:09 | XMS_ITS | Data Portability ---
Author Organization [place] [facility], Main Office Address [address] [place] [address] Care Team Providers Care Hunter Trapper Name Role Phone TRISTEN LESTER Primary Care Provider TRISTEN LESTER Referring Provider [phone] Assessment Encounter Date Assessment Date Assessment LastModified [...] more than half the time spent in [id number] care. 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 She wishes that left 1 done as [...] wrist 023 06/17/20 23 [email or web address] [facility], [address], [place], [address], 3 10:19:55 Medication Orders None recorde d. [...] No observ ation record ed. [facility] [address], [place], [address], 06/19/2023 21:44:29 06/23/20 23 06/22/2023 elect felipechacha diogr am No observ ation record ed. [email or web address] [place] [address] [place], [address], 06/23/2023 16:24:08 Result Notes None recorded. Problems Name Problem SNOMED Code Status Onset Date Resolution Date Notes Provider Name and Address Organization Details Recorded Time Closed fracture of head of radius 03717498 Active Not Available [facility] 3 12:44:43 Bilateral wrist pain 2862544455092 9105 Active 2022 CLARISSA Rashid, [facility] [employer] [facility] 3 10:49:29 Bilateral carpal tunnel syndrome 3321035505481 9101 Active 2022 CLARISSA Rashid null, [place] [facility] 3 15:16:58 Carpal tunnel syndrome of right wrist 0847818544647 08 Active 2022 CLARISSA Rashid null, [facility] [facility] 3 15:17:09 Problem Notes None recorded. Procedures Surgical History Date Name Laterality Status Provider Name and Address Organization Details Recorded Time Back Surgery completed CLARISSA Rashid [facility] 06/17/2023 10:47:52 cervical arthrodesis completed CLARISSA Rashid [facility] 06/17/2023 10:48:21 Knee Surgery completed Cyndee Monahan Horace [facility] 06/17/2023 10:48:27 Imaging Results Imaging Date Name Status LastModified by Organization Details LastModified Time 05/25/2023 electromyogram + nerve conduction study completed [email or web address] Information not available 06/01/2023 10:56:23 06/17/2023 XR, wrist completed [facility] [address], [place], [address], 06/19/2023 21:44:29 06/22/2023 electrocardiogram completed [email or web address] [place] [address] [address] [place], [address], 06/23/2023 16:24:08 Procedure Notes None recorded. Medical [...] Updated DateTime 06/17/2023 157.48 cm 28.2 kg/m2 73444.22 g CLARISSA Rashid [facility] 06/17/2023 10:51:56 Date Recorded Body height Provider Name an d Address Organization Details Last Updated DateTime 07/11/2023 157.48 cm Cyndee Monahan Horace [facility] 07/11/2023 15:15:50 Date Recorded Body height Provider Name an d Address Organization Details Last Updated DateTime 08/03/2023 157.48 cm CLARISSA Rashid [facility] 08/03/2023 14:28:56 Social History Question Answer Notes LastModified by Organizat ion Details LastModified Time Tobacco Smoking Status Never Smoker CLARISSA Rashid [facility] 06/17/2023 10:47:44 What Is Your Level Of Alcohol Consumption? None [email or web address] Information not available 06/17/2023 Sex: Unknown Functional Status None recorded. Mental Status None recorded. Family History Relationship Description Onset Age of this Age Resolved Age Notes LastModified by Organization Details LastModified Time Father Family history of stroke [email or web address] Not available 2022 10:47:38 Medical History Condition Response ARTHRITIS Y CANCER: SPECIFY Y Gynecological HistoryNo gynecological history recorded. Obstetrics History GPAL:G 0 P 0 0 0 0 Past Encounters Encounter ID Performer Location Encounter Start Date Encounter Closed Date Diagnosis/Indication Diagnosis SNOMED-CT Code Diagnosis ICD10 Code Diagnosis Note [id number] MD ERASTO Martinez_ADEEL [facility] [place] [address] [place] [address] 06/17/2023 10:04:01 06/20/2023 10:19:54 Bilateral wrist pain 2797353744 9677468 M25.531 M25.242 [id number] MD SLIM [facility] [place] [address] [place] [address] 07/11/2023 15:12:23 07/11/2023 16:24:56 Carpal tunnel syndrome of right wrist 8454864076 72256 G56.01 [id number] Reese Hicks MD [facility] [address] [place] [address] 08/03/2023 14:23:26 08/03/2023 16:31:36 Carpal tunnel syndrome of right wrist 5292281325 [address] G56.01 Health Concerns Section Related Observation LastModified by Organization Detai ls LastModified Time None Recorded Concern Status LastModified by Organization Details LastModified Time None Recorded Advance Directives Directive None Recorded Payers Encounter Date Sequence Insurance Name Policy Number Policy Lees Covered Member ID Lees Member ID Guarantor Name 06/17/2023 1 [place] Dayana Danielle Becca [id number] Dayana Danielle Becca 06/17/2023 2 [employer] - PLAN F (MEDICARE SUPPLEMENT) Dayana Hudson [id number] Dayana Danielle Binney 07/11/2023 1 [place] Dayana Danielle Robertney [id number] Dayana M Binney 07/11/2023 2 [employer] - PLAN F (MEDICARE SUPPLEMENT) Dayana Danielle Becca [id number] Dayana M Binney 08/03/2023 1 [place] Dayana M Binney [id number] Dayana M Binney 08/03/2023 2 [employer] - PLAN F (MEDICARE SUPPLEMENT) Dayana M Becca [id number] Dayana Hudson Notes Date Note Type Note [...] 40 mg twice daily. Reese Hicks MD [address] [place] [address], [place] [address], [place], [address], [place] [facility] 06/19/2023 21:53:32 OBGyn Episode No OBEpisode recorded.
--- OUTSIDE RECORDS SUMMARY | 2025-03-08 08:09 | XMS_ITS | Clinical Summary ---
Author Organization [facility] Address [address] [place] [address] Care Team Providers Care Physical Integration Practitioner Name Role Phone Jamar Hastings MD Primary Care Provider [phone] Active Problems Problem Noted Date Diagnosed Date [...] 1960 Hepatitis C 1976 Mammogram Screening 1998 Pneumococcal Vaccine: 50+ Years (1 of 1 - PCV) 2008 DTaP, Tdap and Td Vaccines (2 - Td or Tdap) 02/07/2022 02/08/2012 Annual Medicare Wellness Visit 2023 Dexa Scan (General) 2023 COVID-19 Vaccine ( season) 2024 11/04/2022, 11/30/2021, 01/27/2021, Additional [...] age to complete this topic Insurance MEDICARE [facility] INS[facility]ANCE Care Teams Physical Integration Practitioner Relationship Specialty Start Date End Date Jamar Hastings MD [address] [place] [id number] PCP - General INTERNAL MEDICINE 07/26/23
--- OUTSIDE RECORDS SUMMARY | 2025-03-08 08:10 | XMS_ITS | Clinical Summary ---
Author Organization [facility] Address [address] [place] [address] Phone Care Team Providers Care Dip Lube Operator Name Role Phone Jamar Hastings MD Primary Care Provider [phone] Allergies Active Allergy Reactions Criticality Noted Date [...] series) 2033 Medical Devices Implanted Type Area Shift Manager Device Identifier Shelf Expiration Date Model / Serial / Lot Cage Elevate X-Dunia 28x9mm [id number] - [id number] Implanted:Qty: 1 on 05/21/2019 by Manjeet Marie MD at [facility] N/A: Spine Lumbar [employer]- SOFAMOR DANEK 03/02/2027 [id number] / / [id number] Sealant Floseal 5ml [id number] - [id number] Implanted:Qty: 1 on 05/21/2019 by Manjeet Marie MD at [facility] Sealant N/A: Spine Lumbar DOSS- BIOSCIENCE 10/11/2020 [id number] / / [id number] [place] Dbm 8x10cm [id number] - [id number] Implanted:Qty: 1 on 05/21/2019 by Manjeet Marie MD at [facility] N/A: Spine Lumbar [employer] 12/25/2021 [id number] / [id number] / Matrix Dura Regenerative Durepair 1in [id number] - [id number] Implanted:Qty: 1 on 05/21/2019 by Manjeet Marie MD at [facility] N/A: Spine Lumbar [employer] 03/30/2021 [id number] / / [id number] Screw Set Implanted:Qty: 6 on 05/21/2019 by Manjeet Marie MD at [facility] N/A: Spine Lumbar [id number] / / Description:item add c.s load [id number] Screw 7.5x40mm Implanted:Qty: 3 on 05/21/2019 by Manjeet Marie MD at [facility] N/A: Spine Lumbar [id number] / / Description:item add c.s load [id number] Screw 6.5x40mm Implanted:Qty: 3 on 05/21/2019 by Manjeet Marie MD at [facility] N/A: Spine Lumbar [id number] / / Description:item add c.s load [id number] Screw 6.5x40mm Implanted:Qty: 3 on 05/21/2019 by Manjeet Marie MD at [facility] N/A: Spine Lumbar [id number] / / Description:item add c.s load [id number] Donte 80mm Implanted:Qty: 1 on 05/21/2019 by Manjeet Marie MD at [facility] N/A: Spine Lumbar [id number] / / Description:item add c.s load [id number] Donte 50mm Implanted:Qty: 1 on 05/21/2019 by Manjeet Marie MD at [facility] N/A: Spine Lumbar [id number] / / Description:item add c.s load [id number] Insurance [facility] BLUE ACCESS/TRUE BLUE PPO Advance Directives For more information, please contact: [phone] * Full Code (Latest Code Status on File) Date Activated Date Inactivated Comments 05/21/2019 5:01 PM 05/23/2019 5:35 PM Care Teams Dip Lube Operator Relationship Specialty Start Date End Date Jamar Hastings MD [address] [place] [address] PCP - General Internal Medicine 04/20/19
--- OUTSIDE RECORDS SUMMARY | 2025-03-08 08:10 | XMS_ITS | Referral Summary ---
Author Organization [facility] Address [address] [place] [address] Care Team Providers Care Mechanical Pencils Assembler Name Role Phone Jamar Hastings MD Primary Care Provider [phone] Encounters Date Type Department Care Team Description 02/12/[address] [facility] Orthopaedic Surgery [address] [place] [address] Mariel Sal RN 01/09/[address] [facility] Orthopaedic Surgery [address] [facility] 1st Floor [address] [place] [address] Donato Hernánedz ATC 12/13/2024 9:29 AM MACHINE ETCHER - 12/13/2024 11:59 PM MACHINE ETCHER Hospital Encounter [facility] Radiology at [facility] [address] [place] [address] Arthritis of left ankle Discharge Disposition: Discharge to home or self care 12/13/2024 9:50 AM MACHINE ETCHER Office Visit 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 Active acetaminophen 500 mg capsuleIndications [...] on file Legal Sex Female 1:01 PM MACHINE ETCHER Gender Identity Not on file Sexual Orientation Not on file Last Filed Vital Signs Vital Sign Reading Time Taken Comments Blood Pressure 141/67 09/12/2024 9:00 AM MACHINE ETCHER Pulse 89 09/12/2024 9:00 AM MACHINE ETCHER Temperature 37 C (98.6 F) 09/12/2024 8:08 AM MACHINE ETCHER Respiratory Rate 20 09/12/2024 8:08 AM MACHINE ETCHER Oxygen Saturation 100% 09/12/2024 9:00 AM MACHINE ETCHER Inhaled Oxygen Concentration - - Weight 69.4 kg (153 lb) 12/13/2024 9:38 AM MACHINE ETCHER Height 152.4 cm (5') 12/13/2024 9:38 AM MACHINE ETCHER Body Mass Index 29.88 12/13/2024 9:38 AM MACHINE ETCHER Plan of Treatment Not on file Medical Devices Implanted Type Area Aviation Maintenance Technician Device Identifier Shelf Expiration Date Model / Serial / Lot Arthrex Inc Graft Bone Filler Cortical Cancellous Cyro Freezer Arthrocell 5cc Putty Abs-2008- - [id number] - [id number] Implanted:Qty: 1 on 09/11/2024 by Francisco Rowan MD at [facility] Left: Ankle Arthrex Inc 06/20/2026 ABS- / [id number] / [id number] Arthrex Inc Low Profile Screws 6.7mm 75mm 28mm Self Drill Self Tap Cannulated Ks-8157-7197 - [id number] Implanted:Qty: 1 on 09/11/2024 by Francisco Rowan MD at [facility] Left: Ankle Arthrex Inc AR-8967-28 75 / / Arthrex Inc Low Profile Screws 4.5mm 38mm Self Drill Self Tap Cannulated Hex Js-9627-60dp - [id number] Implanted:Qty: 1 on 09/11/2024 by Francisco Rowan MD at [facility] Left: Ankle Ar[employer]rex Inc AR-8945-38 PT / / Arthrex Inc Low Profile Screws 4.5mm 34mm Self Drill Self Tap Cannulated Hex Zk-8619-96ph - [id number] Implanted:Qty: 1 on 09/11/2024 by Francisco Rowan MD at [facility] Left: Ankle Arthrex Inc AR-8945-34 PT / / Arthrex Inc Staple Compression Supermx [id number] Nitinol Xc-7673ldip-1289 - [id number] Implanted:Qty: 1 on 09/11/2024 by Francisco Rowan MD at [facility] Left: Ankle Arthrex Inc [id number] 04/29/2029 AR-8719MXD S-1818 / / [id number] Arthrex Inc Staple Compression Supermx 98f54sj Nitinol Hi-7559olvq-6403 - [id number] Implanted:Qty: 1 on 09/11/2024 by Francisco Rowan MD at [facility] Left: Ankle Arthrex Inc [id number] 04/29/2029 AR-8719MXD S-1818 / / [id number] Arthrex Inc Staple Compression Supermx 18f86ca Nitinol Ei-4696hehv-3172 - [id number] Implanted:Qty: 1 on 09/11/2024 by Francisco Rowan MD at [facility] Left: Ankle Arthrex Inc [id number] 04/29/2029 AR-8719MXD S-2019 / / [id number] Procedures Procedure Name Priority Date/Time Associated Diagnosis Comments XR ANKLE LEFT 2 VIEWS Schedule Routine, Read Routine (OP Routine) 12/13/2024 9:34 AM MACHINE ETCHER Arthritis of left ankle XR FOOT LEFT 3 OR MORE VIEWS Schedule Routine, Read Routine (OP Routine) 12/13/2024 9:34 AM MACHINE ETCHER Arthritis of left ankle from Last 3 Months Results * XR Foot Left 3 or More Views (12/13/2024 9:34 AM MACHINE ETCHER) Anatomical Region Laterality Modality Lower Extremities, Foot Left Computed Radiography 12/13/2024 10:0 2 AM MACHINE ETCHER Impressions 12/13/2024 10:02 AM MACHINE ETCHER 1. Healing triple hindfoot arthrodesis with intact instrumentation. Electronically signed by: Len Mejia D.O. Narrative 12/13/2024 10:02 AM MACHINE ETCHER EXAMINATION: XR FOOT LEFT 3 OR MORE [...] Ankle Left 2 Views (12/13/2024 9:34 AM MACHINE ETCHER) Anatomical Region Laterality Modality Lower Extremities, Ankle Left Compute d Radiography 12/13/2024 10:0 2 AM MACHINE ETCHER Impressions 12/13/2024 10:02 AM MACHINE ETCHER 1. Healing triple hindfoot arthrodesis with intact instrumentation. Electronically signed by: Len Mejia D.O. Narrative 12/13/2024 10:02 AM MACHINE ETCHER EXAMINATION: XR FOOT LEFT 3 OR MORE [...] ult from Last 3 Months Insurance [facility]ARE [facility] MEDICARE [facility] Advance Directives For more information, please contact: [phone] * Full Code (Latest Code Status on File) Date Activated Date Inactivated Comments 09/11/2024 1:33 PM 09/12/2024 3:03 PM Care Teams Mechanical Pencils Assembler Relationship Specialty Start Date End Date Jamar Hastings MD PCP - General 12/04/10
--- OUTSIDE RECORDS SUMMARY | 2025-03-08 08:10 | XMS_ITS | Clinical Summary ---
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 Active acetaminophen 500 mg capsuleIndications [...] Type Department Care Team Description 02/12/2025 Telephone [facility] Orthopaedic Surgery [address] [place] [address] Mariel Sal RN 01/09/2025 Telephone [facility] Orthopaedic Surgery [address] [facility] [address] [facility] 1st Floor [address] [place] [address] Donato Hernández ATC 12/13/2024 9:50 AM CONCESSION STAND ATTENDANT Office Visit [facility] Orthopaedic Surgery [address] [facility] 1st [address] [place] [address] Francisco Rowan MD Arthritis of left ankle (Primary Dx) 12/13/2024 9:29 AM CONCESSION STAND ATTENDANT - 12/13/2024 11:59 PM CONCESSION STAND ATTENDANT Hospital Encounter [facility] at [facility] Medicine [address] [place] [address] Arthritis of left ankle Discharge Disposition: Discharge [...] EGD 10/31/2023 - 10/30/2024 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 POLICYHOLDER INFORMATION CLERK surgeries X2 CHOLECYSTECTOMY unknown date Medical History [...] on file Legal Sex Female 1:01 PM CONCESSION STAND ATTENDANT Gender Identity Not on file Sexual Orientation Not on file Obstetrics History Last Filed Vital Signs Vital Sign Reading Time Taken Comments Blood Pressure 141/67 09/12/2024 9:00 AM CONCESSION STAND ATTENDANT Pulse 89 09/12/2024 9:00 AM CONCESSION STAND ATTENDANT Temperature 37 C (98.6 F) 09/12/2024 8:08 AM CONCESSION STAND ATTENDANT Respiratory Rate 20 09/12/2024 8:08 AM CONCESSION STAND ATTENDANT Oxygen Saturation 100% 09/12/2024 9:00 AM CONCESSION STAND ATTENDANT Inhaled Oxygen Concentration - - Weight 69.4 kg (153 lb) 12/13/2024 9:38 AM CONCESSION STAND ATTENDANT Height 152.4 cm (5') 12/13/2024 9:38 AM CONCESSION STAND ATTENDANT Body Mass Index 29.88 12/13/2024 9:38 AM CONCESSION STAND ATTENDANT Plan of Treatment Health Maintenance Due Date [...] 09/12/2024, 08/18/2017 Medical Devices Implanted Type Area Hostler Helper Device Identifier Shelf Expiration Date Model / Serial / Lot Arthrex Inc Graft Bone Filler Cortical Cancellous Cyro Freezer Arthrocell [facility] Putty Abs-2008- - [id number] - [id number] Implanted:Qty: 1 on 09/11/2024 by Francisco Rowan MD at [facility] Left: Ankle Arthrex Inc 06/20/2026 ABS- 5 / [id number] 1979-23 / [id number] Arthrex Inc Low Profile Screws 6.7mm 75mm 28mm Self Drill Self Tap Cannulated Tp-2697-6844 - [id number] Implanted:Qty: 1 on 09/11/2024 by Francisco Rowan MD at [facility] Left: Ankle Arthrex Inc AR-8967-28 75 / / Arthrex Inc Low Profile Screws 4.5mm 38mm Self Drill Self Tap Cannulated Hex Ui-7583-53cn - [id number] Implanted:Qty: 1 on 09/11/2024 by Francisco Rowan MD at [facility] Left: Ankle Arthrex Inc AR-8945-38 PT / / Arthrex Inc Low Profile Screws 4.5mm 34mm Self Drill Self Tap Cannulated Hex Th-9954-82ut - [id number] Implanted:Qty: 1 on 09/11/2024 by Francisco Rowan MD at [facility] Left: Ankle Arthrex Inc AR-8945-34 PT / / Arthrex Inc Staple Compression Supermx 43w09az Nitinol Gu-5949mpfq-0021 - [id number] Implanted:Qty: 1 on 09/11/2024 by Francisco Rowan MD at [facility] Left: Ankle Arthrex Inc [id number] 04/29/2029 AR-8719MXD S-1818 / / [id number] Arthrex Inc Staple Compression Supermx 85z90mn Nitinol Ji-4464pfjs-2861 - [id number] Implanted:Qty: 1 on 09/11/2024 by Francisco Rowan MD at [facility] Left: Ankle Arthrex Inc [id number] 04/29/2029 AR-8719MXD S-1818 / / [id number] Arthrex Inc Staple Compression Supermx 91b30sy Nitinol Ej-1321trzu-9727 - [id number] Implanted:Qty: 1 on 09/11/2024 by Francisco Rowan MD at [facility] Left: Ankle Arthrex Inc [id number] 04/29/2029 AR-8719MXD S-2020 / / [id number] Procedures Procedure Name Priority Date/Time Associated Diagnosis Comments XR ANKLE LEFT 2 VIEWS Schedule Routine, Read Routine (OP Routine) 12/13/2024 9:34 AM CONCESSION STAND ATTENDANT Arthritis of left ankle XR FOOT LEFT 3 OR MORE VIEWS Schedule Routine, Read Routine (OP Routine) 12/13/2024 9:34 AM CONCESSION STAND ATTENDANT Arthritis of left ankle from Last 3 Months Results * XR Foot Left 3 or More Views (12/13/2024 9:34 AM CONCESSION STAND ATTENDANT) Anatomical Region Laterality Modality Lower Extremities, Foot Left Computed Radiography 12/13/2024 10:0 2 AM CONCESSION STAND ATTENDANT Impressions 12/13/2024 10:02 AM CONCESSION STAND ATTENDANT 1. Healing triple hindfoot arthrodesis with intact instrumentation. Electronically signed by: Len Mejia D.O. Narrative 12/13/2024 10:02 AM CONCESSION STAND ATTENDANT EXAMINATION: XR FOOT LEFT 3 OR MORE [...] Ankle Left 2 Views (12/13/2024 9:34 AM CONCESSION STAND ATTENDANT) Anatomical Region Laterality Modality Lower Extremities, Ankle Left Compute d Radiography 12/13/2024 10:0 2 AM CONCESSION STAND ATTENDANT Impressions 12/13/2024 10:02 AM CONCESSION STAND ATTENDANT 1. Healing triple hindfoot arthrodesis with intact instrumentation. Electronically signed by: Len Mejia D.O. Narrative 12/13/2024 10:02 AM CONCESSION STAND ATTENDANT EXAMINATION: XR FOOT LEFT 3 OR MORE [...] ult from Last 3 Months Insurance MEDICARE [facility] MEDICARE [employer] Advance Directives For more information, please contact: [phone] * Full Code (Latest Code Status on File) Date Activated Date Inactivated Comments 09/11/2024 1:33 PM 09/12/2024 3:03 PM Care Teams Hydrology Technician Relationship Specialty Start Date End Date Jamar Hastings MD PCP - General 12/04/10
[2025-03-08 09:20] LABS: Basophils Percent Auto 0.3 % (0.2-1.2); Eosinophils Absolute Auto 0.2 K/mm3 (0-0.3); Eosinophils Percent Auto 2.9 % (0-4.4); Hematocrit 39.6 % (37.0-47.0); Hemoglobin 12.8 g/dL (12.0-15.0); Immature Granulocyte Absolute 0.03 K/mm3 (0.00-0.031); Immature Granulocyte Percent A 0.4 % (0-0.5); Lymphocytes Absolute Auto 0.87 K/mm3 (0.9-3.2); Lymphocytes Percent Auto 11.1 % (18.3-44.2); Mean Corpuscular HGB Conc 32.3 g/dl (32-36); Mean Corpuscular Volume 89.8 fl (80-100); Mean Platelet Volume 9.1 fl (7.4-10.4); Monocytes Absolute Auto 0.6 K/mm3 (0.1-0.6); Monocytes Percent Auto 7.8 % (2.6-8.5); Neutrophils Absolute Auto 6.1 K/mm3 (1.3-6.7); Neutrophils Percent Auto 77.5 % (45.5-73.1); Platelet Count Result 356 k/mm3 (150-375); Red Blood Count 4.41 M/mm3 (4.2-5.4); Red Cell Distribution Width 13.3 % (11.5-14.5); White Blood Count 7.8 K/mm3 (4.5-10.0)
[2025-03-08 09:32] LABS: Albumin Level 4.3 g/dL (3.5-5.1); Estimated Glomerular Filt Rate > 60; Glucose 71 mg/dL (65-110)
[2025-03-08 09:49] LABS: Urine Cotinine NEGATIVE
[2025-03-08 10:26] LABS: Hemoglobin A1C 4.9 % (<5.7)
[2025-03-08 10:43] LABS: MRSA (PCR) NOT DETECTED (NOT DETECTE)
== END 2025-03-08 08:03 | disposition home or self-care (01) ==
LOC: ANHSURGERY 08:05
PROVIDERS: PCP Internal Medicine; Visit Provider Orthopaedic Surgery
DX: Z01.812 Encounter for preprocedural laboratory examination (principal); M17.11 Unilateral primary osteoarthritis, right knee
CPT/HCPCS: 80307; 82040; 82565; 82947; 83036; 85025; 87641

== ENCOUNTER 2025-04-02 00:17 | Day surgery (SDC) | payer MEDICARE, SELFPAY ==
[2025-03-08 07:46] VITALS: BP 123/60; PULSE 70; RESP 16; TEMP 36.7; O2SAT 100
--- NOTE | 2025-03-08 08:06 | PC.NURSE ---
Addendum entered by Malini Vargas RN 03/08/25 09:01: PT INSTRUCTED(WRITTE AND VERBAL) TO HOLD IBUPROFEN 7 DAYS PRE-OP, ;AST DOSE 03/25/25. SHE RELAYS UNDERSTANDING. Original Note: Report to the Outpatient Waiting Room, entrance under the green pavilion located off [facility], at time __6:00AM____ on date ___04/02/25____. Planned Procedure Time: ___7:30AM .? Time changes happen often and if your time is changed the preop area will call you the afternoon before. - You and your visitor will be asked to self-screen and do not enter if you have any COVID symptoms. Please call surgeon if you need to reschedule. - A mask is optional within the hospital at this time. Patients may have clear liquids (water, carbonated beverages, clear teas, apple juice) until 3 hours prior to surgery (4:30AM) with a maximum of 20 ounces. - No food from midnight until time of surgery and no smoking, or chewing tobacco (or any form of nicotine). No chewing gum, candy or mints. Take only the following medications with a SIP of water on the morning of surgery: VERAPAMIL DO NOT STOP ANY OF YOUR OTHER PRESCRIPTION MEDICATIONS PRIOR TO SURGERY EXCEPT THE FOLLOWING Hold all vitamins and supplements for 3 days per anesthesiologist- LAST DOSE .03/29/25 Please no make-up, nail bahraini, hairspray, perfume, deodorant, or body powder the day of surgery.? No jewelry (including any body piercings) or valuables the day of surgery, leave them at home.? Please take a shower or bath the night before, or the morning of, surgery with an antibacterial soap.? Wear comfortable, loose fitting clothing.? - Jewelry must be removed prior to entering the operating room.? Rings and piercings that are not removed may be cut off. - The hospital will not accept responsibility for valuables.? - Please leave all valuables, including medications, at home the day of surgery. If you are going home after surgery, a licensed driver/guide must drive you home.? - NO public transportation without another adult if you receive anesthesia. - We recommend that an adult stay with you for 24 hours following discharge. - We also recommend that you do not drive, make important decision, drink alcoholic beverages, or take any drugs that were not prescribed by your health care provider for at least 24 hours after your discharge time. Follow any additional instructions given to you from your surgeon. Telephone instructions given to ___PATIENT and asked if any additional questions and then verbalized understanding. Patient advised to call surgeon office or pre surgery nurse liaison [phone] if any additional questions.
[2025-03-08 08:19] VITALS: BMI 26.4
[2025-04-02] VITALS (19 sets, daily range): BP systolic 115–139; BP diastolic 60–82; PULSE 58–75; RESP 10–20; TEMP 35.7–37.2; O2SAT 93–100
--- NOTE | ~2025-04-02 | XR_ITS ---
EXAMINATION: [id number] DATE: 04/02/2025 9:56 CDT INDICATION: Right total knee arthroplasty TECHNIQUE: 2 views right knee FINDINGS: There is a right total knee arthroplasty in expected position. Subcutaneous gas with fluid and air in the joint are consistent with recent surgery. No evidence of periprosthetic fracture. IMPRESSION: 1. Recent right total knee arthroplasty. Reviewed, dictated and finalized at location A.
--- OUTSIDE RECORDS SUMMARY | 2025-04-02 00:19 | XMS_ITS | Continuity of Care Document ---
Author Organization [facility] Address [address] [place] [address] Phone Care Team Providers Care Footwear Sales Representative Name Role Phone Jamir Morgan Unavailable Unavailable Procedures Procedure Date Office/outpatient Visit, [facility] Advance Directives Directive Yes / No Effective Date File Name No Information Encounters Encounter Description Practice Location Reason(s) For Visit Diagnoses Date Provider Providers Copied on Encounter Office/outpat ient Visit, [facility], [address], [place], [place], [id number], [place] tel:[phone] [facility] No Information [address] , [address], [place], [address], [place]. tel:[phone] Family History Family Member Type Diagnosis Age At Onset No Information Payers Payer name Insurance type Covered libertarian ID Lluvia kraft(s) [facility] CI [id number] Social History Type Description Quantity Date Captured [...]
--- OUTSIDE RECORDS SUMMARY | 2025-04-02 00:19 | XMS_ITS | Clinical Summary ---
Author Organization [facility] Address [address] [place] [address] Care Team Providers Care Riprap Placing Supervisor Name Role Phone Unavailable Primary Care Provider Unavailabl e Source Comments [facility],non-owned Affiliates and Associated Physician Practices is amultiple site organization consisting of ambulatory clinics and hospital sitesin [place], [place], [place] and [place]. This disclosure is being madepursuant to the Care Everywhere program and may not contain all information available regarding this patient. Last updated 18.[facility] [employer] Social History Tobacco Use Types Packs/Day Years Used Date Smoking Tobacco: Never Assessed Comments Unknown Sex and Gender Information Value Date Recorded Sex Assigned at Not on file Legal Sex Female 9:40 AM AUTISM SPECIALIST Gender Identity Not on file Sexual Orientation [...] HUDSON Subscriber ID:Not on file (Home) Address: [address] [place] [address] Payer ID:Not on file Group ID:Not on file Type:Self Pay Address: [place], [place]
--- OUTSIDE RECORDS SUMMARY | 2025-04-02 00:19 | XMS_ITS | Referral Summary ---
Author Organization [facility] Address [address] [place] [address] Care Team Providers Care Farm Equipment Assembler Name Role Phone Jamar Hastings MD Primary Care Provider [phone] Encounters Date Type Department Care Team Description 03/21/2025 9:20 AM CDT - 03/21/2025 11:59 PM CDT Hospital Encounter [facility] Radiology at [facility] [address] [place] [address] Arthritis of left ankle Discharge Disposition: Discharge to home or self care 03/21/2025 9:50 AM CDT Office Visit [facility] Orthopaedic Surgery [address] [place] [address] 1st Floor [address] [place] [address] Francisco Rowan MD Arthritis of left ankle (Primary Dx) 02/12/2025 Telephone [facility] Orthopaedic Surgery [address] [facility] 2nd Floor [address] [place] [address] Mariel Sal RN 01/09/2025 Telephone [facility] Orthopaedic Surgery [address] [facility] 1st Floor [address] [place] [address] Donato Hernández ATC from Last 3 Months Allergies Active Allergy [...] upplement Take 2 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/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 Active acetaminophen 500 mg capsuleIndications [...] on file Legal Sex Female 1:01 PM HUMAN RESOURCES REPRESENTATIVE Gender Identity Not on file Sexual Orientation Not on file Last Filed Vital Signs Vital Sign Reading Time Taken Comments Blood Pressure 141/67 09/12/2024 9:00 AM HUMAN RESOURCES REPRESENTATIVE Pulse 89 09/12/2024 9:00 AM HUMAN RESOURCES REPRESENTATIVE Temperature 37 C (98.6 F) 09/12/2024 8:08 AM HUMAN RESOURCES REPRESENTATIVE Respiratory Rate 20 09/12/2024 8:08 AM HUMAN RESOURCES REPRESENTATIVE Oxygen Saturation 100% 09/12/2024 9:00 AM HUMAN RESOURCES REPRESENTATIVE Inhaled Oxygen Concentration - - Weight 69.4 kg (153 lb) 12/13/2024 9:38 AM HUMAN RESOURCES REPRESENTATIVE Height 152.4 cm (5') 12/13/2024 9:38 AM HUMAN RESOURCES REPRESENTATIVE Body Mass Index 29.88 12/13/2024 9:38 AM HUMAN RESOURCES REPRESENTATIVE Plan of Treatment Not on file Medical Devices Implanted Type Area Payroll Machine Operator Device Identifier Shelf Expiration Date Model / Serial / Lot Ar[employer]rex Inc Graft Bone Filler Cortical Cancellous Cyro Freezer Arthrocell 5c Putty Abs-2008- - [id number] - [id number] Implanted:Qty: 1 on 09/11/2024 by Francisco Rowan MD at [facility] Left: Ankle Ar[employer] Inc 06/20/2026 ABS- / [id number] / [id number] Ar[employer]rex Inc Low Profile Screws 6.7mm 75mm 28mm Self Drill Self Tap Cannulated [id number] - [id number] Implanted:Qty: 1 on 09/11/2024 by Francisco Rowan MD at [facility] Left: Ankle [employer] AR-8967-28 75 / / [employer] Low Profile Screws 4.5mm 38mm Self Drill Self Tap Cannulated Hex [id number]-[id number] - [id number] Implanted:Qty: 1 on 09/11/2024 by Francisco Rowan MD at [facility] Left: Ankle [employer] AR-8945-38 PT / / Ar[employer] Low Profile Screws 4.5mm 34mm Self Drill Self Tap Cannulated Hex Ow-[id number] - [id number] Implanted:Qty: 1 on 09/11/2024 by Francisco Rowan MD at [facility] Left: Ankle [employer] AR-8945-34 PT / / [employer] Staple Compression Supermx [id number] Nitinol [id number] - [id number] Implanted:Qty: 1 on 09/11/2024 by Francisco Rowan MD at [facility] Left: Ankle [employer] [id number] 04/29/2029 AR-8719MXD S-1818 / / [id number] Ar[employer]rex [employer] Staple Compression Supermx [id number] Nitinol Va-[id number]-[id number] - [id number] Implanted:Qty: 1 on 09/11/2024 by Francisco Rowan MD at [facility] Left: Ankle [employer] [id number] 04/29/2029 AR-8719MXD S-1818 / / [id number] Ar[employer] Staple Compression Supermx [id number] Nitinol Vq-[id number] - [id number] Implanted:Qty: 1 on 09/11/2024 by Francisco Rowan MD at [facility] Left: Ankle Ar[employer]rex Inc [id number] 04/29/2029 AR-8719MXD S-2019 / / [id number] Procedures Procedure Name Priority Date/Time Associated Diagnosis Comments XR FOOT LEFT 3 OR MORE VIEWS Schedule Routine, Read Routine (OP Routine) 03/21/2025 9:30 AM CDT Arthritis of left ankle XR ANKLE LEFT 2 VIEWS Schedule Routine, Read Routine (OP Routine) 03/21/2025 9:30 AM CDT Arthritis of left ankle from Last 3 Months Results * XR Foot Left 3 or More Views (03/21/2025 9:30 AM CDT) Anatomical Region Laterality Modality Lower Extremities, Foot Left Computed Radiography 03/21/2025 9:47 AM CDT Impressions 03/21/2025 9:47 AM CDT 1. Healing triple hindfoot arthrodesis with intact instrumentation. Electronically signed by: Terrence Pride D.O. Narrative 03/21/2025 9:47 AM CDT EXAMINATION: XR ANKLE LEFT 2 VIEWS, XR FOOT LEFT 3 OR MORE VIEWS HISTORY: Pain COMPARISON: 12/13/2024 FINDINGS: Healing instrumented triple hindfoot arthrodesis with increased osseous bridging across the joint lines. The instrumentation is intact. Moderate talocrural osteoarthritis. Moderate 1st metatarsophalangeal joint osteoarthritis. Mild midfoot osteoarthritis. Mild pes planus. Mild disuse osteopenia. Procedure Note Terrence Pride DO - 03/21/2025 EXAMINATION: XR ANKLE LEFT 2 VIEWS, XR FOOT LEFT 3 OR MORE VIEWS HISTORY: Pain COMPARISON: 12/13/2024 FINDINGS: Healing instrumented triple hindfoot arthrodesis with increased osseous bridging across the joint lines. The instrumentation is intact. Moderate talocrural osteoarthritis. Moderate 1st metatarsophalangeal joint osteoarthritis. Mild midfoot osteoarthritis. Mild pes planus. Mild disuse osteopenia. IMPRESSION: 1. Healing triple hindfoot arthrodesis with intact instrumentation. Electronically signed by: Terrence Pride D.O. us Francisco Rowan MD IMG XR PROCEDURES Final Res ult * XR Ankle Left 2 Views (03/21/2025 9:30 AM CDT) Anatomical Region Laterality Modality Lower Extremities, Ankle Left Compute d Radiography 03/21/2025 9:47 AM CDT Impressions 03/21/2025 9:47 AM CDT 1. Healing triple hindfoot arthrodesis with intact instrumentation. Electronically signed by: Terrence Pride D.O. Narrative 03/21/2025 9:47 AM CDT EXAMINATION: XR ANKLE LEFT 2 VIEWS, XR FOOT LEFT 3 OR MORE VIEWS HISTORY: Pain COMPARISON: 12/13/2024 FINDINGS: Healing instrumented triple hindfoot arthrodesis with increased osseous bridging across the joint lines. The instrumentation is intact. Moderate talocrural osteoarthritis. Moderate 1st metatarsophalangeal joint osteoarthritis. Mild midfoot osteoarthritis. Mild pes planus. Mild disuse osteopenia. Procedure Note Terrence Pride DO - 03/21/2025 EXAMINATION: XR ANKLE LEFT 2 VIEWS, XR FOOT LEFT 3 OR MORE VIEWS HISTORY: Pain COMPARISON: 12/13/2024 FINDINGS: Healing instrumented triple hindfoot arthrodesis with increased osseous bridging across the joint lines. The instrumentation is intact. Moderate talocrural osteoarthritis. Moderate 1st metatarsophalangeal joint osteoarthritis. Mild midfoot osteoarthritis. Mild pes planus. Mild disuse osteopenia. IMPRESSION: 1. Healing triple hindfoot arthrodesis with intact instrumentation. Electronically signed by: Terrence Pride D.O. [place] XR PROCEDURES Final Res ult from Last 3 Months Insurance MEDICARE [facility] MEDICARE [facility] Advance Directives For more information, please contact: [phone] * Full Code (Latest Code Status on File) Date Activated Date Inactivated Comments 09/11/2024 1:33 PM 09/12/2024 3:03 PM Care Teams Farm Equipment Assembler Relationship Specialty Start Date End Date Jamar Hastings MD PCP - General 12/04/10
--- OUTSIDE RECORDS SUMMARY | 2025-04-02 00:19 | XMS_ITS | Clinical Summary ---
Author Organization [facility] Address [address] [place] [address] Care Team Providers Care Cadd Instructor Name Role Phone Jamar Hastings MD Primary Care Provider [phone] Allergies Active Allergy Reactions Criticality Noted Date [...] upplement Take 2 tablet/capsul e by mouth picker and packer before breakfast Active acetaminophen 500 mg capsuleIndications [...] Date Type Department Care Team Description 03/21/2025 9:50 AM CDT Office Visit [facility] Orthopaedic Surgery [address] [facility] 1st Floor [address] [place] [address] Francisco Rowan MD Arthritis of left ankle (Primary Dx) 03/21/2025 9:20 AM CDT - 03/21/2025 11:59 PM CDT Hospital Encounter [facility] Radiology at [facility] [address] [place] [address] Arthritis of left ankle Discharge Disposition: Discharge to home or self care 02/12/[address] [facility] Orthopa[facility] [address] [facility] 2nd Floor [address] [place] [address] Mariel Sal RN 01/09/[address] 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 surgeries X2 CHOLECYSTECTOMY unknown date Medical History [...] on file Legal Sex Female 1:01 PM DELI BAKERY CLERK Gender Identity Not on file Sexual Orientation Not on file Obstetrics History Last Filed Vital Signs Vital Sign Reading Time Taken Comments Blood Pressure 141/67 09/12/2024 9:00 AM DELI BAKERY CLERK Pulse 89 09/12/2024 9:00 AM DELI BAKERY CLERK Temperature 37 C (98.6 F) 09/12/2024 8:08 AM DELI BAKERY CLERK Respiratory Rate 20 09/12/2024 8:08 AM DELI BAKERY CLERK Oxygen Saturation 100% 09/12/2024 9:00 AM DELI BAKERY CLERK Inhaled Oxygen Concentration - - Weight 69.4 kg (153 lb) 12/13/2024 9:38 AM DELI BAKERY CLERK Height 152.4 cm (5') 12/13/2024 9:38 AM DELI BAKERY CLERK Body Mass Index 29.88 12/13/2024 9:38 AM DELI BAKERY CLERK Plan of Treatment Health Maintenance Due Date [...] 09/12/2024, 08/18/2017 Medical Devices Implanted Type Area Pattern Hand Device Identifier Shelf Expiration Date Model / Serial / Lot Ar[employer]rex Inc Graft Bone Filler Cortical Cancellous Cyro Freezer Arthrocell 5cc Putty Abs- - [id number] - [id number] Implanted:Qty: 1 on 09/11/2024 by Francisco Rowan MD at [facility] Left: Ankle [employer] 06/20/2026 ABS- 5 / [id number] / [id number] Ar[employer] Inc Low Profile Screws 6.7mm 75mm 28mm Self Drill Self Tap Cannulated [id number] - [id number] Implanted:Qty: 1 on 09/11/2024 by Francisco Rowan MD at [facility] Left: Ankle [employer] AR-8967-28 75 / / [employer] Low Profile Screws 4.5mm 38mm Self Drill Self Tap Cannulated Hex Ou-[id number] - [id number] Implanted:Qty: 1 on 09/11/2024 by Francisco Rowan MD at [facility] Left: Ankle Ar[employer] Inc AR-8945-38 PT / / Ar[employer] Low Profile Screws 4.5mm 34mm Self Drill Self Tap Cannulated Hex Bw-[id number] - [id number] Implanted:Qty: 1 on 09/11/2024 by Francisco Rowan MD at [facility] Left: Ankle [employer] AR-8945-34 PT / / [employer] Staple Compression Supermx [id number] Nitinol Zy-[id number] - [id number] Implanted:Qty: 1 on 09/11/2024 by Francisco Rowan MD at [facility] Left: Ankle [employer] [id number] 04/29/2029 AR-8719MXD S-1818 / / [id number] Ar[employer] Inc Staple Compression Supermx [id number] Nitinol Mp-9284xtyl-5654 - [id number] Implanted:Qty: 1 on 09/11/2024 by Francisco Rowan MD at [facility] Left: Ankle [employer] [id number] 04/29/2029 AR-8719MXD S-1818 / / [id number] Ar[employer] Inc Staple Compression Supermx [id number] Nitinol Ic-[id number] - [id number] Implanted:Qty: 1 on 09/11/2024 by Francisco Rowan MD at [facility] Left: Ankle [employer] [id number] 04/29/2029 AR-8719MXD S-2020 / / [id number] Procedures Procedure Name Priority Date/Time Associated Diagnosis [...] Electronically signed by: Terrence Pride D.O. Francisco Rowan MD IMG XR PROCEDURES Final Res ult from Last 3 Months Insurance MEDICARE [facility] Address: [facility] [address] [place] [address] [facility] MEDICARE [facility] Advance Directives For more information, please contact: [phone] * Full Code (Latest Code Status on File) Date Activated Date Inactivated Comments 09/11/2024 1:33 PM 09/12/2024 3:03 PM Care Teams Cadd Instructor Relationship Specialty Start Date End Date Jamar Hastings MD PCP - General 12/04/10
--- OUTSIDE RECORDS SUMMARY | 2025-04-02 00:19 | XMS_ITS | Clinical Summary ---
Author Organization [facility] Address [address] [place] [address] Phone Care Team Providers Care Sand Caster Name Role Phone Jamar Hastings MD Primary Care Provider [phone] Allergies Active Allergy Reactions Criticality Noted Date [...] 6:08 AM CDT Height 162.6 cm (5' 4) 05/21/2019 9:32 AM CDT Body Mass Index [...] series) 2033 Medical Devices Implanted Type Area Marble Installer Device Identifier Shelf Expiration Date Model / Serial / Lot Cage Elevate X-Dunia 28x9mm [id number] - [id number] Implanted:Qty: 1 on 05/21/2019 by Manjeet Marie MD at [facility] N/A: Spine Lumbar [employer] SOFAMOR DANEK 03/02/2027 [id number] / / [id number] Sealant Floseal 5ml [id number] - [id number] Implanted:Qty: 1 on 05/21/2019 by Manjeet Marie MD at [facility]alant N/A: Spine Lumbar DOSS- BIOSCIENCE 10/11/2020 [id number] / / [id number] [place] Dbm 8x10cm [id number] - [id number] Implanted:Qty: 1 on 05/21/2019 by Manjeet Marie MD at [facility] N/A: Spine Lumbar [employer] 12/25/2021 [id number] / [id number] / Matrix Dura Regenerative Durepair 1in 09197 - [id number] Implanted:Qty: 1 on 05/21/2019 by Manjeet Marie MD at [facility] N/A: Spine Lumbar [employer] 03/30/2021 [id number] / / [id number] Screw Set Implanted:Qty: 6 on 05/21/2019 by Manjeet Marie MD at [facility] N/A: Spine Lumbar [id number] / / Description:item add c.s load [id number] Screw 7.5x40mm Implanted:Qty: 3 on 05/21/2019 by Manjeet Marie MD at [facility] N/A: Spine Lumbar [id number] / / Description:item add c.s load [id number] Screw 6.5x40mm Implanted:Qty: 3 on 05/21/2019 by Manjeet Marie MD at [facility] N/A: Spine Lumbar [id number] / / Description:item add c.s load [id number] Screw 6.5x40mm Implanted:Qty: 3 on 05/21/2019 by Manjeet Marie MD at [facility] N/A: Spine Lumbar [id number] / / Description:item add c.s load [id number] Donte 80mm Implanted:Qty: 1 on 05/21/2019 by Manjeet Marie MD at [facility] N/A: Spine Lumbar [id number] / / Description:item add c.s load [id number] Donte 50mm Implanted:Qty: 1 on 05/21/2019 by Manjeet Marie MD at [facility] N/A: Spine Lumbar [id number] / / Description:item add c.s load [id number] Insurance [facility] BLUE ACCESS/TRUE BLUE PPO Advance Directives For more information, please contact: [phone] * Full Code (Latest Code Status on File) Date Activated Date Inactivated Comments 05/21/2019 5:01 PM 05/23/2019 5:35 PM Care Teams Sand Caster Relationship Specialty Start Date End Date Jamar Hastings MD [address] [place] [address] PCP - General Internal Medicine 04/20/19
--- OUTSIDE RECORDS SUMMARY | 2025-04-02 00:19 | XMS_ITS | Clinical Summary ---
Author Organization [facility] Address [address] [place] [address] Phone Care Team Providers Care Maintenance Fitter Name Role Phone Jamar Hastings MD Primary Care Provider [phone] Social History Tobacco Use Types Packs/Day Years [...] patient's age to complete this topic Insurance [facility] Care Teams Maintenance Fitter Relationship Specialty Start Date End Date Jamar Hastings MD [address] [place] [address] PCP - General Internal Medicine 05/10/23
--- NOTE | 2025-04-02 06:47 | WPDANESEPPF ---
Anes - Initial Pre Proc Eval Procedure: Operation Date: 04/02/25 07:30 Proposed Procedures p Right Custom Total Knee Arthroplasty - Henry Hurtado MD Date/Time: 04/02/25 06:47 Surgeon: Henry Hurtado MD Pre Op Diagnosis: Prim O A Rt Knee Patient Data Age: 64 Gender: F Height: 1.6 m Weight: 67.8 kg Last Vital Signs Temp 36.7 C 03/08/25 07:46 Pulse 70 03/08/25 07:46 Resp 16 03/08/25 07:46 BP 123/60 03/08/25 07:46 Pulse Ox 100 03/08/25 07:46 O2 Del Method Room Air 03/08/25 07:46 Allergies Allergy/AdvReac Type Severity Reaction Status Date / Time Iodinated Contrast Media Allergy Severe Anaphylaxis Verified 03/08/25 10:20 quinine AdvReac Severe CHILLS, Verified 03/08/25 10:20 NAUSEA AND VOMITING duloxetine AdvReac NAUSEA/VOMI Verified 03/08/25 10:20 TING Home Medications ?Medication ?Instructions ?Recorded ?Confirmed ?Type acyclovir 200 mg capsule 400 mg PO BID PRN Outbreak 08/11/23 03/08/25 History atenolol 50 mg tablet 50 mg PO HS 08/11/23 03/08/25 History atorvastatin 10 mg tablet 10 mg PO HS 08/11/23 03/08/25 History omeprazole 40 mg capsule,delayed 40 mg PO BID 08/11/23 03/08/25 History release verapamil 120 mg 24 hr 120 mg PO QAM 08/11/23 03/08/25 History capsule,extended release zolpidem 10 mg tablet 10 mg PO HS 08/11/23 03/08/25 History hydrocodone 5 mg-acetaminophen 325 1 tablet PO Q8H PRN Pain 11/07/23 03/08/25 History mg tablet cholecalciferol (vitamin D3) 25 50 mcg PO DAILY 01/21/25 03/08/25 History mcg (1,000 unit) capsule (Vitamin D3) apixaban 2.5 mg tablet (Eliquis) 2.5 mg PO BID 2 weeks #28 tabs 03/08/25 03/08/25 Rx ibuprofen 200 mg capsule 800 mg PO Q6H PRN pain 03/08/25 03/08/25 History methylprednisolone 4 mg tablets in See Rx Instructions PO PER PKG DIR 03/08/25 03/08/25 Rx a dose pack (Medrol (Edgar)) #21 ea ondansetron 4 mg disintegrating 4 mg PO Q8H PRN nausea and vomiting 03/08/25 03/08/25 History tablet Patient hx anesthesia problems: post op nausea/vomiting Family hx anesthesia problems: none Results Review: All pre-operative results and documents have been reviewed as part of the pre-operative evaluation. [facility] Past Medical History Medical History (Updated 04/01/25 @ 15:47 by Geoffrey Coley DO) PONV (postoperative nausea and vomiting) Hypertension DVT (deep venous thrombosis) History of bruising easily History of blood clots History of stress test Anesthesia complication issues with waking up from general anesthesia previously History of gastric ulcer Cervical vertebral fusion TYE (obstructive sleep apnea) Nondisplaced fracture of neck of right radius Hyperlipidemia Surgical History Surgical History Status post total left knee replacement (~11/24/23) History of tubal ligation History of lumbar fusion H/O cervical discectomy History of laminectomy History of arthroscopy of left knee Hx laparoscopic cholecystectomy Family History Family History Father Hypertension Cerebrovascular accident Hyperlipidemia Peripheral vascular disease Hemiballismus Mother Hyperlipidemia Hypertension Osteoarthritis Sibling Hypertension Hyperlipidemia Asthma Anxiety Social History Social History Smoking status: Never smoker Alcohol intake: current Drinks per week: 3 Alcohol use details: socially Substance use: never Substance use type: does not use Do You Feel Safe in your Home?: Yes Lack of Transportation: No Lack of Food: Never True Current Housing: I Have Housing Concerned About Future Housing: No Difficulty Paying Gas/Electric Bills: No Difficulty Paying for Meds: No Currently Unemployed: No Education: High School Diploma/GED Difficulty w/ Childcare or Family Care: No Living arrangements: with family Additional living arrangements comments: HUSB AND GRANDDAUGHTER Spiritual care concerns: No Anes - Eval Final PreProcedure Day of Procedure 04/02/25 06:47 Patient weight: overweight Heart: regular rate and rhythm Lungs: clear to auscultation Airway: Mallampati scale class III Neurological: alert and oriented Last oral intake: >/= 8 hours ASA classification: III Emergent: no Anesthetic plan: proceed Anesthesia type and monitoring: general LMA and standard monitoring Results Review: All pre-operative results and documents have been reviewed as part of the pre-operative evaluation. Informed Consent: The patient's anesthetic plan and its attendant risks and benefits were discussed with the patient/family/POA. Questions were solicited and answers provided to the satisfaction of the patient/family/POA.
[2025-04-02] MEDS: ACETAMINOPHEN 500 MG TABLET 1000 MG PO (07:00)
[2025-04-02] MEDS: TRANEXAMIC ACID 1,000MG/ISO100 1,000 MG/100 ML BAG 200 MG IVPB (07:00)
[2025-04-02] MEDS: SCOPOLAMINE 1 MG PATCH 1 PATCH TRANSDERM (07:00)
[2025-04-02] MEDS: LACTATED RINGERS 1,000 ML 30 ML IV CONT ×2 (07:00→09:20)
--- NOTE | 2025-04-02 07:14 | WPDHPUPDATE1 ---
History and Physical Update Update Date/Time: 04/02/25 07:14 History and Physical has been reviewed, including an updated exam of the patient. There are NO changes in the patient's condition. Risks, benefits, and alternatives have been discussed and questions answered. Patient agrees to proceed with procedure.
[2025-04-02] MEDS: ceFAZolin 2 GM/D5W 50 ML 2 GM/50 ML BAG IVPB ×3 (07:23→22:51)
[2025-04-02] MEDS: SODIUM CHLORIDE 0.9% IV 37.7 ML, MORPHINE SULFATE INJ (*CRX) 2 MG, ROPivacaine HCL 1% 2... INFILTRATE (07:58)
--- NOTE | 2025-04-02 09:32 | P.OP_ITS ---
Procedure Note - Detailed Date of Procedure 04/02/25 Pre-op Diagnosis Right knee degenerative arthritis. Post-op Diagnosis Same Procedure Performed Total knee arthroplasty, right custom Surgeon Henry Hurtado MD Dispatcher Chief Coal Slurry Priya Mack PA-C Anesthesia General Findings Severe disease. Optimal fit of custom implant. Soft tissue laxity medially managed with 1mm thicker asymmetric polyethylene insert. No ligament releases performed. Description of Procedure Preoperative antibiotics were given. The limb was prepped and draped in the usual sterile fashion with a well-padded tourniquet high on the thigh. The limb was exsanguinated and the tourniquet inflated to 300 mmHg. A longitudinal incision was created just medial to the patella. A trivector approach to the knee was performed. Arthrotomy was taken down through the joint capsule. No significant releases were initially taken. The femur was exposed and the F1 jig was applied. The coring tool was used to remove the cartilage for the F2 jig to sit flush with the bone. The jig was pinned and the distal cut carefully taken. Caliper measurements confirmed appropriate bony resections according to the preoperative templated plan. The F4 cutting jig for the femur was applied, at the standard rotation. The AP and anterior chamfer cuts were taken. The F5 jig was applied and the posterior chamfer cuts were taken. The tibia was prepared using the T1 jig, after removing cartilage for the jig contact points. Proper alignment was checked with the alignment justin. The tibia was cut using the T1u guide. Gap balancing was performed. Gap measurements were taken and the knee was trialed. Excellent alignment and soft tissue balancing was confirmed. The posterior cruciate ligament was recessed along the proximal tibia. The patella was cut for resurfacing. Three lug holes were drilled. Meniscal remnants were removed. The trial components were assembled. Excellent range of motion and proper soft tissue balancing were confirmed throughout the full range of motion. Patellar tracking was excellent. The knee was copiously irrigated periodically throughout the procedure. The real implants were cemented into position. Excess cement was carefully removed. The wound was closed in layers with interrupted #1 Vicryl suture, 2-0 strata fix suture, 0 strata fix suture, 2-0 strata fix suture. Steri-Strips placed on the skin with the knee flexed. Sterile bulky dressing applied. The patient was brought to the recovery room in stable condition. There were no complications. Physician records management assistant, Priya Mack PA-C, required for surgery; including patient positioning, draping, tissue retraction, maintaining instrument position, cement removal, wound closure, and dressing placement. Implants Conformis Custom total knee arthroplasty. Cemented. Cruciate retaining. 8B insert. 29 mm round patella. Estimated Blood Loss 20 Drains No Complications No immediate complications Condition Stable Disposition PACU [facility] Billing Surgery - Charge Forward: Surgery Billing
[2025-04-02] MEDS: fentaNYL CITRATE INJ (*CRX) 100 MCG/2 ML VIAL 25 MCG IV PUSH ×2 (11:20→11:22)
[2025-04-02] MEDS: oxyCODONE/ACETAMINOPHEN (*CRX) 5-325 MG TABLET 1 TABLET PO ×2 (12:05→17:06)
[2025-04-02] MEDS: ONDANSETRON HCL ODT 4 MG TABLET PO ×2 (15:02→22:50)
[2025-04-02] MEDS: FAMOTIDINE 20 MG TABLET PO ×2 (15:03→20:32)
[2025-04-02] MEDS: predniSONE 5 MG TABLET PO (17:06)
[2025-04-02] MEDS: atenoloL 50 MG TABLET PO (20:31)
[2025-04-02] MEDS: ZOLPIDEM TARTRATE (*CRX) 5 MG TABLET 10 MG PO (20:31)
[2025-04-02] MEDS: ATORVASTATIN 10 MG TABLET PO (20:32)
[2025-04-02] MEDS: oxyCODONE/ACETAMINOPHEN (*CRX) 10-325 MG TABLET 1 TAB PO (22:50)
[2025-04-03 00:05] VITALS: BP 133/66; PULSE 59; RESP 18; TEMP 36.4; O2SAT 98
[2025-04-03 04:20] VITALS: BP 134/74; PULSE 82; RESP 16; TEMP 36.3; O2SAT 99
[2025-04-03] MEDS: ceFAZolin 2 GM/D5W 50 ML 2 GM/50 ML BAG IVPB (06:31)
[2025-04-03 06:32] LABS: Basophils Percent Auto 0.1 % (0.2-1.2); Hematocrit 32.4 % (37.0-47.0); Hemoglobin 10.5 g/dL (12.0-15.0); Immature Granulocyte Absolute 0.11 K/mm3 (0.00-0.031); Immature Granulocyte Percent A 1.1 % (0-0.5); Lymphocytes Absolute Auto 0.89 K/mm3 (0.9-3.2); Lymphocytes Percent Auto 8.9 % (18.3-44.2); Mean Corpuscular HGB Conc 32.4 g/dl (32-36); Mean Corpuscular Hemoglobin 29.4 pg (26-34); Mean Corpuscular Volume 90.8 fl (80-100); Mean Platelet Volume 9.1 fl (7.4-10.4); Monocytes Absolute Auto 0.7 K/mm3 (0.1-0.6); Monocytes Percent Auto 6.8 % (2.6-8.5); Neutrophils Absolute Auto 8.3 K/mm3 (1.3-6.7); Neutrophils Percent Auto 83.1 % (45.5-73.1); Platelet Count Result 303 k/mm3 (150-375); Red Blood Count 3.57 M/mm3 (4.2-5.4); Red Cell Distribution Width 13.8 % (11.5-14.5)
[2025-04-03 06:47] LABS: Anion Gap 3 mmol/L (4-12); Blood Urea Nitrogen 11 mg/dL (7-17); Calcium 8.9 mg/dL (8.4-10.2); Carbon Dioxide 26 mmol/L (22-30); Chloride 99 mmol/L (98-107); Estimated CRCL calculation 64 ml/min; Estimated Glomerular Filt Rate > 60; Glucose 118 mg/dL (65-110); Potassium 4.8 mmol/L (3.4-5.0); Sodium 128 mmol/L (137-145)
[2025-04-03 08:00] VITALS: O2SAT 100
[2025-04-03] MEDS: SENNA/DOCUSATE SODIUM TABLET 2 TAB PO (08:12)
[2025-04-03] MEDS: polyethylene glycoL 3350 17 GM POWD.PACK PO (08:12)
[2025-04-03] MEDS: oxyCODONE/ACETAMINOPHEN (*CRX) 10-325 MG TABLET 1 TAB PO (08:13)
[2025-04-03] MEDS: VERAPAMIL HCL ER 120 MG TABLET PO (08:13)
[2025-04-03] MEDS: PANTOPRAZOLE 40 MG TABLET PO (08:13)
[2025-04-03] MEDS: APIXABAN 2.5 MG TABLET PO (08:13)
[2025-04-03 09:14] VITALS: BP 123/42; PULSE 68; RESP 20; TEMP 36.5; O2SAT 100
== END 2025-04-03 10:30 | disposition home or self-care (01) ==
LOC: ANHSURGERY 07:37 → ANH3MEDSUR 11:58
PROVIDERS: Physician Assistant Surgical; PCP Internal Medicine; Visit Provider Orthopaedic Surgery
PROC: (CPT 27447; principal; 2025-04-02 07:30)
DX: M17.11 Unilateral primary osteoarthritis, right knee (principal); I10 Essential (primary) hypertension; E78.5 Hyperlipidemia, unspecified; Z79.891 Long term (current) use of opiate analgesic; Z79.01 Long term (current) use of anticoagulants; Z79.1 Long term (current) use of non-steroidal anti-inflammatories (NSAID); Z98.890 Other specified postprocedural states; Z98.51 Tubal ligation status; Z98.1 Arthrodesis status; Z90.49 Acquired absence of other specified parts of digestive tract; Z96.652 Presence of left artificial knee joint; Z86.718 Personal history of other venous thrombosis and embolism; Z87.11 Personal history of peptic ulcer disease; Z82.49 Family history of ischemic heart disease and other diseases of the circulatory system
CPT/HCPCS: 27447; 36415; 73560; 80048; 85025; 86850; 86900; 86901; 97110; 97116; 97161; 97165; A9270; C1713; C1776; J0171; J0690; J1100; J1171; J1885; J2003; J2250; J2270; J2371; J2405; J2704; J2795; J3010; J7120; J7512

== ENCOUNTER 2025-05-09 09:30 | Outpatient (RCR) | payer MEDICARE, SELFPAY ==
--- NOTE | 2025-04-16 10:16 | OPREHPOC ---
Outpatient Therapy Plan of Care This is a Multidisciplinary Plan of Care that may contain components documented by all disciplines (PT, OT, and ST.) PT Problem 1 PT Problem #1 Knowledge Deficit PT Goal 1 Goal / Goal Update independent and compliant with HEP Target Visit 6 PT Problem 2 PT Problem #2 Pain PT Goal 1 Goal / Goal Update pain at worst to be less than 4/10 with all standing and routine daily activities. Target Visit 12 PT Problem 3 PT Problem #3 Impaired Range of Motion PT Goal 1 Goal / Goal Update 0-120 degrees active R knee rom Target Visit 12 PT Problem 4 PT Problem #4 Impaired Strength PT Goal 1 Goal / Goal Update 4+/5 R hip flex 4+/5 or better R knee flex 4+/5 or better R knee ext Target Visit 12 PT Problem 5 PT Problem #5 Impaired Functional Mobility PT Goal 1 Goal / Goal Update LEFS to display 30% or less functional deficits patient to ambulate with reciprocal gait mechanics with equal stance time without AD patient to ambulate up and down steps with reciprocal mechanics and 1 hand rail hold or less Target Visit 12
--- NOTE | 2025-04-16 10:16 | PTOPEVAL1 ---
Assessment and note entered by JT File, PT Evaluation Information Assessment Status Evaluation Diagnosis s/p R TKA ICD-10 Condition Codes (PT) Encounter for other orthopedic aftercare Z47.89, Aftercare following joint replacement surgery Z47. 1 Onset 04/02/25 Subjective Information patient reports she had the R knee replaced 2 weeks ago due to OA. she reports she had the L knee replaced a year and a half ago and is doing well. she reports she has been compliant with her HEP at home since surgery. she does not follow up with MD for another week. she reports it is sore and tight today. Reported Pain Level Pain Score 8: Self Report Assessment PT Clinical Summary mrs. mcdaniel is a 64 yo woman who presents to skilled PT services for rehab s/p R TKA. she presents today with deficits in R knee rom, R knee strength, and swelling/pain in the R knee. continued skilled PT is indicated to help the patient return to her prior level functional activity performance/quality of life, including ambulation without any AD and normal reciprocal mechanics. Plan of Care Interventions Electrical Stimulation,Gait Training,Hot Pack/Cold Pack,Intermittent Compression Pump,Manual Therapy ,Neuro Re-education,Patient/Caregiver Education, Therapeutic Activities,Therapeutic Exercise PT Services Indicated Yes Treatment Frequency and 3x weekly for 12 visits Duration These treatments will address the objective and functional deficits as defined above. The patient will be advanced safely and appropriately in order for the patient to progress towards his/her prior level of function. Additional exercises will be introduced and as well as a comprehensive home exercise program upon discharge, if needed, ?to ensure carryover of functional gains achieved in the clinic. This treatment plan has been reviewed and agreement upon by the patient.
--- NOTE | 2025-04-25 08:27 | PCPTNOTE ---
Cancelled session. Reports she cannot make it today.
--- NOTE | 2025-05-09 10:39 | OPREHPOC ---
Outpatient Therapy Plan of Care This is a Multidisciplinary Plan of Care that may contain components documented by all disciplines (PT, OT, and ST.) PT Problem 1 PT Problem #1 Knowledge Deficit PT Goal 1 Goal / Goal Update independent and compliant with HEP Target Visit 6 Progress Met PT Problem 2 PT Problem #2 Pain PT Goal 1 Goal / Goal Update pain at worst to be less than 4/10 with all standing and routine daily activities. Target Visit 12 Progress Met PT Problem 3 PT Problem #3 Impaired Range of Motion PT Goal 1 Goal / Goal Update 0-120 degrees active R knee rom Target Visit 12 Progress Met PT Problem 4 PT Problem #4 Impaired Strength PT Goal 1 Goal / Goal Update 4+/5 R hip flex 4+/5 or better R knee flex 4+/5 or better R knee ext Target Visit 12 Progress Met PT Problem 5 PT Problem #5 Impaired Functional Mobility PT Goal 1 Goal / Goal Update LEFS to display 30% or less functional deficits. not met patient to ambulate with reciprocal gait mechanics with equal stance time without AD. met patient to ambulate up and down steps with reciprocal mechanics and 1 hand rail hold or less. met Target Visit 12 Progress Partially Met
--- NOTE | 2025-05-09 10:39 | PTOPDC ---
Assessment and note entered by JT File, PT Evaluation Information Assessment Status Discharge Diagnosis s/p R TKA ICD-10 Condition Codes (PT) Encounter for other orthopedic aftercare Z47.89, Aftercare following joint replacement surgery Z47. 1 Onset 04/02/25 Subjective Information patient reports she is doing well, and is hoping to be released today. patient reports she has been feeling really good as of late. she reports she has no issues walking or with steps. she reports she is not using any AD. Reported Pain Level Pain Score 0: Self Report Assessment PT Clinical Summary mrs. mcdaniel presents to skilled PT for her 9th skilled therapy visit. she has achieved all but her LEFS goal for skilled PT as of this date. she will be DC'd from skilled PT today, and will continue with an HEP independent at home. Plan of Care PT Services Indicated Yes
== END 2025-05-09 20:00 | disposition home or self-care (01) ==
LOC: CHSPT 09:30
PROVIDERS: Visit Provider Orthopaedic Surgery
DX: Z47.1 Aftercare following joint replacement surgery (principal); Z96.651 Presence of right artificial knee joint
CPT/HCPCS: 97016; 97110; 97112; 97116; 97161; 97530

== ENCOUNTER 2025-05-16 13:45 | Outpatient (CLI) | payer MEDICARE, SELFPAY ==
--- OUTSIDE RECORDS SUMMARY | 2025-05-16 13:56 | XMS_ITS | Clinical Summary ---
Author Organization [facility] Address [address] [place] [address] Care Team Providers Care Butadiene Convertor Operator Name Role Phone Jamar Hastings MD Primary Care Provider [phone] Active Problems Problem Noted Date Diagnosed Date [...] age to complete this topic Insurance MEDICARE [facility] INSURANCE Care Teams Butadiene Convertor Operator Relationship Specialty Start Date End Date Jamar Hastings MD [address] [place] [id number] PCP - General INTERNAL MEDICINE 07/26/23
--- OUTSIDE RECORDS SUMMARY | 2025-05-16 13:56 | XMS_ITS | Clinical Summary ---
Author Organization [facility] Address [address] [place] [address] Phone Care Team Providers Care Environmental Safety Specialist Name Role Phone Jamar Hastings MD Primary Care Provider [phone] Allergies Active Allergy Reactions Criticality Noted Date [...] 2008 OSTEOPOROSIS SCREENING 2023 INFLUENZA VACCINE (#1) 2025 RSV VACCINE (60+ or ) (1 - 1-dose 75+ series) 2033 Medical Devices Implanted Type Area Air Compressor Mechanic Device Identifier Shelf Expiration Date Model / Serial / Lot Cage Elevate X-Dunia 28x9mm [id number] - [id number] Implanted:Qty: 1 on 05/21/2019 by Manjeet Marie MD at [facility] N/A: Spine Lumbar [employer]- SOFAMOR DANEK 03/02/2027 [id number] / / [id number] Sealant Floseal 5ml [id number] - [id number] Implanted:Qty: 1 on 05/21/2019 by Manjeet Marie MD at [facility] Sealant N/A: Spine Lumbar DOSS- BIOSCIENCE 10/11/2020 [id number] / / [id number] [place] Dbm 8x10cm [id number] - [id number] Implanted:Qty: 1 on 05/21/2019 by Manjeet Marie MD at [facility] N/A: Spine Lumbar [employer] 12/25/2021 [id number] / [id number] / Matrix Dura Regenerative Durepair 1in [id number] - [id number] Implanted:Qty: 1 on 05/21/2019 by Manjeet Marie MD at [facility] N/A: Spine Lumbar [employer] INC 03/30/2021 [id number] / / [id number] Screw Set Implanted:Qty: 6 on 05/21/2019 by Manjeet Marie MD at [facility] N/A: Spine Lumbar [id number] / / Description:item add c.s load [id number] Screw 7.5x40mm Implanted:Qty: 3 on 05/21/2019 by Manjeet Marie MD at [facility] N/A: Spine Lumbar [id number] / / Description:item add c.s load [id number] Screw 6.5x40mm Implanted:Qty: 3 on 05/21/2019 by Manjeet Marie MD at [facility] N/A: Spine Lumbar [id number] / / Description:item add c.s load [id number] Screw 6.5x40mm Implanted:Qty: 3 on 05/21/2019 by Manjeet Marie MD at [facility] N/A: Spine Lumbar [id number] / / Description:item add c.s load [id number] Donte 80mm Implanted:Qty: 1 on 05/21/2019 by Manjeet Marie MD at [facility] N/A: Spine Lumbar [id number] / / Description:item add c.s load [id number] Donte 50mm Implanted:Qty: 1 on 05/21/2019 by Manjeet Marie MD at [facility] N/A: Spine Lumbar [id number] / / Description:item add c.s load [id number] Insurance [facility] BLUE ACCESS/TRUE BLUE PPO Advance Directives For more information, please contact: [phone] * Full Code (Latest Code Status on File) Date Activated Date Inactivated Comments 05/21/2019 5:01 PM 05/23/2019 5:35 PM Care Teams Environmental Safety Specialist Relationship Specialty Start Date End Date Jamar Hastings MD [address] [place] [address] PCP - General Internal Medicine 04/20/19
--- OUTSIDE RECORDS SUMMARY | 2025-05-16 13:56 | XMS_ITS | Data Portability ---
Author Organization [place] [facility] Main Office Address [address] [place] [address] Care Team Providers Care Tire Classifier Name Role Phone TRISTEN LESTER Primary Care Provider [phone] TRISTEN LESTER Referring Provider Assessment Encounter Date [...] more than half the time spent in pckl-df-motf care. 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 She wishes that left 1 done as [...] wrist 023 06/17/20 23 [email or web address] [facility], [address], [place], [address], 3 10:19:55 Medication Orders None recorde d. [...] No observ ation record ed. [facility] [address], [address], 06/19/2023 21:44:29 06/23/20 23 06/22/2023 elect felipechacha diogr am No observ ation record ed. [email or web address] [facility] [address] [place], [address], 06/23/2023 16:24:08 Result Notes None recorded. Problems Name Problem SNOMED Code Status Onset Date Resolution Date Notes Provider Name and Address Organization Details Recorded Time Closed fracture of head of radius 11301421 Active Not Available [facility] 3 12:44:43 Bilateral wrist pain 9704343158999 9105 Active 2022 CLARISSA Rashid, [place] [facility] [employer] [facility] 3 10:49:29 Bilateral carpal tunnel syndrome 0905787235745 9101 Active 2022 CLARISSA Rashid null, [place] [facility] [employer] [facility] 3 15:16:58 Carpal tunnel syndrome of right wrist 2751616951083 08 Active 2022 CLARISSA Rashid, [place] [facility] [employer] [facility] 15:17:09 Problem Notes None recorded. Procedures Surgical History Date Name Laterality Status Provider Name and Address Organization Details Recorded Time Back Surgery completed CLARISSA Rashid [facility] 06/17/2023 10:47:52 cervical arthrodesis completed Cyndee Monahan Horace [facility] 06/17/2023 10:48:21 Knee Surgery completed Cyndee Monahan [facility] 06/17/2023 10:48:27 Imaging Results None recorded. Procedure Notes None recorded. Medical Equipment None [...] Updated DateTime 06/17/2023 157.48 cm 28.2 kg/m2 82249.22 g Cyndee Monahan Horace [facility] 06/17/2023 10:51:56 Date Recorded Body height Provider Name an d Address Organization Details Last Updated DateTime 07/11/2023 157.48 cm Cyndee Monahan [facility] 07/11/2023 15:15:50 Date Recorded Body height Provider Name an d Address Organization Details Last Updated DateTime 08/03/2023 157.48 cm Cyndee Monahan CL[facility] 08/03/2023 14:28:56 Social History None recorded. Functional Status Question Answer Note LastModified by Organization D etails LastModified Time What is your level of alcohol consumption? None [email or web address] Information not available 06/17/2023 Mental Status None recorded. Family History Relationship Description Onset Age of this Age Resolved Age Notes LastModified by Organization Details LastModified Time Father Family history of stroke [email or web address] Not available 2022 10:47:38 Medical History Condition Response ARTHRITIS Y CANCER: SPECIFY Y Gynecological HistoryNo gynecological history recorded. Obstetrics History GPAL:G 0 P 0 0 0 0 Past Encounters Encounter ID Performer Location Encounter Start Date Encounter Closed Date Diagnosis/Indication Diagnosis SNOMED-CT Code Diagnosis ICD10 Code Diagnosis Note [id number] Reese Hicks MD [facility] [address] [place] [address] 06/17/2023 10:04:01 06/20/2023 10:19:54 Bilateral wrist pain 0718874564 7177667 M25.531 M25.060 [id number] Reese Hicks MD [facility] [address] [place] [address] 07/11/2023 15:12:23 07/11/2023 16:24:56 Carpal tunnel syndrome of right wrist 7533630448 69853 G56.01 [id number] Reese Hicks MD [facility] [address] [place] [address] 08/03/2023 14:23:26 08/03/2023 16:31:36 Carpal tunnel syndrome of right wrist 4100149486 46682 G56.01 Health Concerns Section Related Observation LastModified by Organization Detai ls LastModified Time None Recorded Concern Status LastModified by Organization Details LastModified Time None Recorded Advance Directives Directive None Recorded Payers Insurance Date Sequence Insurance Name Policy Number Policy Lees Covered Member ID Lees Member ID Guarantor Name 07/31/2023 1 [place] Dayana Hudson [id number] Dayana Hudson 10/17/2023 2 [employer] [facility] [employer] - PLAN F (MEDICARE SUPPLEMENT) Dayana Hudson [id number] Dayana Hudson 06/17/2023 1 [place] [id number] Dayana Hudson [id number] Dayana Hudson Notes Date Note Type Note [...] 40 mg twice daily. Reese Hicks MD [address] [place] [address], [facility] [address], [place], [address], [facility] 06/19/2023 21:53:32 OBGyn Episode No OBEpisode recorded.
--- OUTSIDE RECORDS SUMMARY | 2025-05-16 13:56 | XMS_ITS | Clinical Summary ---
Author Organization [facility] Address [address] [place] [address] Care Team Providers Care Inside Sales Specialist Name Role Phone Jamar Hastings MD Primary Care Provider [phone] Allergies Active Allergy Reactions Criticality Noted Date [...] Take 2 tablet/capsul e by mouth early breastfeeding care specialist before breakfast Active acetaminophen 500 mg capsuleIndications [...] Description 03/21/2025 9:50 AM CDT Office Visit [facility] Orthopaedic Surgery [address] [place] [address] Francisco Rowan MD Arthritis of left ankle (Primary Dx) 03/21/2025 9:20 AM CDT - 03/21/2025 11:59 PM CDT Hospital Encounter [facility] Radiology at [facility] [address] [place] [address] Arthritis of left ankle Discharge Disposition: Discharge [...] EGD 10/31/2023 - 10/30/2024 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 X2 CHOLECYSTECTOMY unknown date Medical History [...] on file Legal Sex Female 1:01 PM BLOCK SAW OPERATOR Gender Identity Not on file Sexual Orientation Not on file Obstetrics History Last Filed Vital Signs Vital Sign Reading Time Taken Comments Blood Pressure 141/67 09/12/2024 9:00 AM BLOCK SAW OPERATOR Pulse 89 09/12/2024 9:00 AM BLOCK SAW OPERATOR Temperature 37 C (98.6 F) 09/12/2024 8:08 AM BLOCK SAW OPERATOR Respiratory Rate 20 09/12/2024 8:08 AM BLOCK SAW OPERATOR Oxygen Saturation 100% 09/12/2024 9:00 AM BLOCK SAW OPERATOR Inhaled Oxygen Concentration - - Weight 69.4 kg (153 lb) 12/13/2024 9:38 AM BLOCK SAW OPERATOR Height 152.4 cm (5') 12/13/2024 9:38 AM BLOCK SAW OPERATOR Body Mass Index 29.88 12/13/2024 9:38 AM BLOCK SAW OPERATOR Plan of Treatment Health Maintenance Due Date [...] 09/12/2024, 08/18/2017 Medical Devices Implanted Type Area Lieutenant Ballistics Device Identifier Shelf Expiration Date Model / Serial / Lot Ar[employer]rex Inc Graft Bone Filler Cortical Cancellous Cyro Freezer Arthrocell [facility] Putty Abs-2008-05 - [id number] - [id number] Implanted:Qty: 1 on 09/11/2024 by Francisco Rowan MD at [facility] Left: Ankle [employer]rex Inc 06/20/2026 ABS-2008- 5 / [id number] / [id number] Arthrex Inc Low Profile Screws 6.7mm 75mm 28mm Self Drill Self Tap Cannulated [id number] - [id number] Implanted:Qty: 1 on 09/11/2024 by Francisco Rowan MD at [facility] Left: Ankle [employer] Inc AR-8967-28 75 / / Ar[employer]rex Inc Low Profile Screws 4.5mm 38mm Self Drill Self Tap Cannulated Hex Lg-2791-77my - [id number] Implanted:Qty: 1 on 09/11/2024 by Francisco Rowan MD at [facility] Left: Ankle [employer] AR-8945-38 PT / / Ar[employer] Low Profile Screws 4.5mm 34mm Self Drill Self Tap Cannulated Hex [id number] - [id number] Implanted:Qty: 1 on 09/11/2024 by Francisco Rowan MD at [facility] Left: Ankle [employer]rex Inc AR-8945-34 PT / / Ar[employer] Inc Staple Compression Supermx 04q57tw Nitinol [id number] - [id number] Implanted:Qty: 1 on 09/11/2024 by Francisco Rowan MD at [facility] Left: Ankle [employer] Inc [id number] 04/29/2029 AR-8719MXD S-1818 / / [id number] Ar[employer]rex Inc Staple Compression Supermx 76f86yr Nitinol [id number] - [id number] Implanted:Qty: 1 on 09/11/2024 by Francisco Rowan MD at [facility] Left: Ankle [employer] Inc [id number] 04/29/2029 AR-8719MXD S-1818 / / [id number] Ar[employer] Inc Staple Compression Supermx [id number] Nitinol [id number] - [id number] Implanted:Qty: 1 on 09/11/2024 by Francisco Rowan MD at [facility] Left: Ankle Ar[employer]rex Inc [id number] 04/29/2029 AR-8719MXD S-2020 / / [id number] Procedures Procedure Name Priority Date/Time Associated Diagnosis [...] planus. Mild disuse osteopenia. Procedure Note Terrence Pride, - 03/21/2025 EXAMINATION: XR ANKLE LEFT 2 [...] from Last 3 Months Insurance MEDICARE [facility] MEDICARE [facility] Advance Directives For more information, please contact: [phone] * Full Code (Latest Code Status on File) Date Activated Date Inactivated Comments 09/11/2024 1:33 PM 09/12/2024 3:03 PM Care Teams Inside Sales Specialist Relationship Specialty Start Date End Date Jamar Hastings MD PCP - General 12/04/10
--- OUTSIDE RECORDS SUMMARY | 2025-05-16 13:56 | XMS_ITS | Referral Summary ---
Author Organization [facility] Address [address] [place] [address] Care Team Providers Care Sales Service Assistant Name Role Phone Jamar Hastings MD Primary Care Provider [phone] Encounters Date Type Department Care Team Description 03/21/2025 9:20 AM CDT - 03/21/2025 11:59 PM CDT Hospital Encounter [facility] Radiology at [facility] [address] [place] [address] Arthritis of left ankle Discharge Disposition: Discharge to home or self care 03/21/2025 9:50 AM CDT Office Visit [facility] Orthopaedic Surgery [address] [facility] 1st [address] [place] [address] Francisco Rowan MD Arthritis of left ankle [...] upplement Take 2 tablet/capsul e by mouth scrapper before breakfast Active acetaminophen 500 mg capsuleIndications [...] on file Legal Sex Female 1:01 PM ACUTE CARE PHYSICIAN Gender Identity Not on file Sexual Orientation Not on file Last Filed Vital Signs Vital Sign Reading Time Taken Comments Blood Pressure 141/67 09/12/2024 9:00 AM ACUTE CARE PHYSICIAN Pulse 89 09/12/2024 9:00 AM ACUTE CARE PHYSICIAN Temperature 37 C (98.6 F) 09/12/2024 8:08 AM ACUTE CARE PHYSICIAN Respiratory Rate 20 09/12/2024 8:08 AM ACUTE CARE PHYSICIAN Oxygen Saturation 100% 09/12/2024 9:00 AM ACUTE CARE PHYSICIAN Inhaled Oxygen Concentration - - Weight 69.4 kg (153 lb) 12/13/2024 9:38 AM ACUTE CARE PHYSICIAN Height 152.4 cm (5') 12/13/2024 9:38 AM ACUTE CARE PHYSICIAN Body Mass Index 29.88 12/13/2024 9:38 AM ACUTE CARE PHYSICIAN Plan of Treatment Not on file Medical Devices Implanted Type Area Downstairs Maid Device Identifier Shelf Expiration Date Model / Serial / Lot Arthrex Inc Graft Bone Filler Cortical Cancellous Cyro Freezer Arthrocell 5c Putty Abs - [id number] - [id number] Implanted:Qty: 1 on 09/11/2024 by Francisco Rowan MD at [facility] Left: Ankle Arthrex Inc 06/20/2026 ABS- 5 / [id number] / [id number] Arthrex Inc Low Profile Screws 6.7mm 75mm 28mm Self Drill Self Tap Cannulated Mp-6729-0142 - [id number] Implanted:Qty: 1 on 09/11/2024 by Francisco Rowan MD at [facility] Left: Ankle Arthrex Inc AR-8967-28 75 / / Arthrex Inc Low Profile Screws 4.5mm 38mm Self Drill Self Tap Cannulated Hex Mj-4062-36gw - [id number] Implanted:Qty: 1 on 09/11/2024 by Francisco Rowan MD at [facility] [place] [facility] Left: Ankle Arthrex Inc AR-8945-38 PT / / Arthrex Inc Low Profile Screws 4.5mm 34mm Self Drill Self Tap Cannulated Hex Gu-6022-69dh - [id number] Implanted:Qty: 1 on 09/11/2024 by Francisco Rowan MD at [facility] Left: Ankle Arthrex Inc AR-8945-34 PT / / Arthrex Inc Staple Compression Supermx [id number] Nitinol Hw-6317lpun-6499 - [id number] Implanted:Qty: 1 on 09/11/2024 by Francisco Rowan MD at [facility] Left: Ankle Arthrex Inc [id number] 04/29/2029 AR-8719MXD S-1818 / / [id number] Arthrex Inc Staple Compression Supermx [id number] Nitinol Lm-5728hwdh-1651 - [id number] Implanted:Qty: 1 on 09/11/2024 by Francisco Rowan MD at [facility] Left: Ankle Arthrex Inc [id number] 04/29/2029 AR-8719MXD S-1818 / / [id number] Arthrex Inc Staple Compression Supermx [id number] Nitinol Hx-0464ugsz-0670 - [id number] Implanted:Qty: 1 on 09/11/2024 by Francisco Rowan MD at [facility] Left: Ankle Arthrex Inc [id number] 04/29/2029 AR-8719MXD S-2020 / / [id number] Procedures Procedure Name Priority Date/Time Associated Diagnosis [...] ult from Last 3 Months Insurance MEDICARE [facility] MEDICARE [facility] Advance Directives For more information, please contact: [phone] * Full Code (Latest Code Status on File) Date Activated Date Inactivated Comments 09/11/2024 1:33 PM 09/12/2024 3:03 PM Care Teams Sales Service Assistant Relationship Specialty Start Date End Date Jamar Hastings MD PCP - General 12/04/10
--- OUTSIDE RECORDS SUMMARY | 2025-05-16 13:56 | XMS_ITS | Clinical Summary ---
Author Organization [facility] Address [address] [place] [address] Care Team Providers Care Manager Of Security Name Role Phone Unavailable Primary Care Provider Unavailabl e Source Comments [facility] [employer],non-owned Affiliates and Associated Physician Practices is amultiple site organization consisting of ambulatory clinics and hospital sitesin [place], [place], [place] and [place]. This disclosure is being madepursuant to the Care Everywhere program and may not contain all information available regarding this patient. Last updated 18.[facility] [employer] Social History Tobacco Use Types Packs/Day Years Used Date Smoking Tobacco: Never Assessed Comments Unknown Sex and Gender Information Value Date Recorded Sex Assigned at Not on file Legal Sex Female 9:40 AM NUT BLANKER OPERATOR Gender Identity Not on file Sexual [...] season) 2024 DEPRESSION SCREENING 10/31/2024 INFLUENZA VACCINE (#1) 2025 Respiratory Syncytial Virus (RSV) Vaccine Pt: [...] HUDSON Subscriber ID:Not on file (Home) Address: [address] [place] [address] Payer ID:Not on file Group ID:Not on file Type:Self Pay Address: [place], [place]
--- OUTSIDE RECORDS SUMMARY | 2025-05-16 13:56 | XMS_ITS | Clinical Summary ---
Author Organization [facility] Address [address] [place] [address] Phone Care Team Providers Care Final Expense Agent Name Role Phone Jamar Hastings MD Primary Care Provider [phone] Social History Tobacco Use Types Packs/Day Years [...] C Virus (HCV) Screening 1958 Mammogram 1958 Cologuard 2003 Colonoscopy 2003 Colorectal Cancer Screening 2003 Immunochemical Fecal Occult Blood 2003 Pneumococcal Immunization (50+ years) (1 of 1 - PCV) 2008 SARS-COV-2 Immunization ( season) 2024 11/04/2022, 11/30/2021, 01/27/2021, Additional history exists Influenza Immunization (#1) 2025 08/18/2017 Respiratory Syncytial Virus (RSV) Immunization (Adult) (1 - 1-dose 75+ series) 2033 DTaP/Tdap/Td Immunization Discontinued 02/08/2012 TdaP Immunization Completed 02/08/2012 Zoster Immunization Completed 04/24/2019, 01/11/2019, 12/27/2016 Hepatitis B Immunization Aged Out No longer eligible based on patient's age to complete this topic Human Papillomavirus (HPV) Immunization Aged Out No longer eligible based on patient's age to complete this topic Meningococcal Immunization (ACWY) Aged Out No longer eligible based on patient's age to complete this topic Rotavirus Immunization Aged Out No lo nger eligible based on patient's age to complete this topic Insurance [facility] Care Teams Final Expense Agent Relationship Specialty Start Date End Date Jamar Hastings MD [address] [place] [address] PCP - General Internal Medicine 05/10/23
--- OUTSIDE RECORDS SUMMARY | 2025-05-16 13:56 | XMS_ITS | Patient Health Record ---
Author Organization [facility] Address [address] [place], [place] [address] Care Team Providers Care Digital Marketing Associate Name Role Phone DIAMOND PURI Unavailable [phone] Jamar Hastings Unavailable Unavailable Reason For Referral No Information Plan Of Treatment No Information Insurance Providers Payer Name Payer Address Payer Phone Subscriber Number Group Number Insured Name Patient Relationship to Insured Coverage Start Date Coverage End Date [facility] ([facility]) ATTN CLAIMS [address] [place] [address] [id number] KATARINA QUIROZ Self - patient is the insured
[2025-05-16 14:07] LABS: Hematocrit 34.9 % (35.0-42.0); Hemoglobin 11.3 g/dL (11.7-13.8); Mean Corpuscular HGB Conc 32.4 g/dL (32-36); Mean Corpuscular Hemoglobin 29.7 pg (27.0-31.0); Mean Corpuscular Volume 91.6 fL (78.0-102.0); Platelet Count Result 347 K/mm3 (150-420); Red Blood Count 3.81 M/mm3 (4.20-5.40); White Blood Count 6.8 K/mm3 (4.8-10.8)
[2025-05-16 15:03] LABS: Alanine Aminotransferase 15 U/L (6-35); Albumin Level 3.8 g/dL (3.5-5.1); Alkaline Phosphatase 71 U/L (38-126); Anion Gap 3 mmol/L (4-12); Aspartate Amino Transferase 28 U/L (14-36); Bilirubin,Total 0.4 mg/dL (0.2-1.3); Blood Urea Nitrogen 19 mg/dL (7-17); Calcium 9.0 mg/dL (8.4-10.2); Carbon Dioxide 29 mmol/L (22-30); Chloride 103 mmol/L (98-107); Cholesterol 210 mg/dL (0-200); Estimated Glomerular Filt Rate 52; Glucose 107 mg/dL (65-110); HDL Direct 76 mg/dL; Osmolality Calculated 282 mOsm/kg (285-295); Potassium 5.5 mmol/L (3.4-5.0); Sodium 135 mmol/L (137-145); Total Protein 6.3 g/dL (6.3-8.2); Triglycerides 118 mg/dL (<150)
[2025-05-18 23:07] LABS: Osmolality, Serum 282 mOsmol/kg (280-301)
== END 2025-05-16 13:46 | disposition home or self-care (01) ==
PROVIDERS: PCP Internal Medicine; Visit Provider Internal Medicine
DX: I10 Essential (primary) hypertension (principal); E87.1 Hypo-osmolality and hyponatremia; E78.5 Hyperlipidemia, unspecified
CPT/HCPCS: 36415; 80053; 80061; 83930; 85027

== ENCOUNTER 2025-05-17 12:43 | Outpatient (NON) | payer MEDICARE, SELFPAY ==
--- OUTSIDE RECORDS SUMMARY | 2025-05-17 12:47 | XMS_ITS | Referral Summary ---
Author Organization [facility] Address [address] [place] [address] Care Team Providers Care Rolled Oats Mill Operator Name Role Phone Jamar Hastings MD Primary Care Provider Encounters Date Type Department Care Team Description 03/21/2025 9:20 AM CDT - 03/21/2025 11:59 PM CDT Hospital Encounter [facility] Radiology at [facility] [address] [place] [address] Arthritis of left ankle Discharge Disposition: Discharge to home or self care 03/21/2025 9:50 AM CDT Office Visit [facility] Orthopaedic Surgery [address] [facility] 1st Floor [address] [place] [address] Francisco Rowan MD Arthritis of left ankle [...] upplement Take 2 tablet/capsul e by mouth shirt marker before breakfast Active acetaminophen 500 mg capsuleIndications [...] on file Legal Sex Female 1:01 PM ACCOUNTS PAYABLE ANALYST Gender Identity Not on file Sexual Orientation Not on file Last Filed Vital Signs Vital Sign Reading Time Taken Comments Blood Pressure 141/67 09/12/2024 9:00 AM ACCOUNTS PAYABLE ANALYST Pulse 89 09/12/2024 9:00 AM ACCOUNTS PAYABLE ANALYST Temperature 37 C (98.6 F) 09/12/2024 8:08 AM ACCOUNTS PAYABLE ANALYST Respiratory Rate 20 09/12/2024 8:08 AM ACCOUNTS PAYABLE ANALYST Oxygen Saturation 100% 09/12/2024 9:00 AM ACCOUNTS PAYABLE ANALYST Inhaled Oxygen Concentration - - Weight 69.4 kg (153 lb) 12/13/2024 9:38 AM ACCOUNTS PAYABLE ANALYST Height 152.4 cm (5') 12/13/2024 9:38 AM ACCOUNTS PAYABLE ANALYST Body Mass Index 29.88 12/13/2024 9:38 AM ACCOUNTS PAYABLE ANALYST Plan of Treatment Not on file Medical Devices Implanted Type Area Human Resources Benefits Administrator Device Identifier Shelf Expiration Date Model / Serial / Lot Arthrex Inc Graft Bone Filler Cortical Cancellous Cyro Freezer Arthrocell 5c Putty Abs - [id number] - [id number] Implanted:Qty: 1 on 09/11/2024 by Francisco Rowan MD at [facility] Left: Ankle Ar[employer]rex Inc 06/20/2026 ABS- 5 / [id number] / [id number] Arthrex Inc Low Profile Screws 6.7mm 75mm 28mm Self Drill Self Tap Cannulated Ae-1600-7088 - [id number] Implanted:Qty: 1 on 09/11/2024 by Francisco Rowan MD at [facility] Left: Ankle Ar[employer]rex Inc AR-8967-28 75 / / Arthrex Inc Low Profile Screws 4.5mm 38mm Self Drill Self Tap Cannulated Hex Zq-6241-21bq - [id number] Implanted:Qty: 1 on 09/11/2024 by Francisco Rowan MD at [facility] Left: Ankle Arthrex Inc AR-8945-38 PT / / Arthrex Inc Low Profile Screws 4.5mm 34mm Self Drill Self Tap Cannulated Hex Xs-2075-17xj - [id number] Implanted:Qty: 1 on 09/11/2024 by Francisco Rowan MD at [facility] Left: Ankle Arthrex Inc AR-8945-34 PT / / Ar[employer]rex Inc Staple Compression Supermx [id number] Nitinol Fe-7186wpic-0514 - [id number] Implanted:Qty: 1 on 09/11/2024 by Francisco Rowan MD at [facility] Left: Ankle Arthrex Inc [id number] 04/29/2029 AR-8719MXD S-1818 / / [id number] Arthrex Inc Staple Compression Supermx 78q18cc Nitinol Ix-2041bazn-6209 - [id number] Implanted:Qty: 1 on 09/11/2024 by Francisco Rowan MD at [facility] Left: Ankle Arthrex Inc [id number] 04/29/2029 AR-8719MXD S-1818 / / [id number] Arthrex Inc Staple Compression Supermx 21d46ut Nitinol Ti-2690wjiq-8709 - [id number] Implanted:Qty: 1 on 09/11/2024 by Francisco Rowan MD at [facility] Left: Ankle Arthrex Inc [id number] 04/29/2029 AR-8719MXD S-2020 / / [id number] Procedures Procedure Name Priority Date/Time Associated Diagnosis [...] ult from Last 3 Months Insurance MEDICARE [facility] MEDICARE [facility] Address: [address] [address] [facility] Advance Directives For more information, please contact: [phone] * Full Code (Latest Code Status on File) Date Activated Date Inactivated Comments 09/11/2024 1:33 PM 09/12/2024 3:03 PM Care Teams Rolled Oats Mill Operator Relationship Specialty Start Date End Date Jamar Hastings MD PCP - General 12/04/10
--- OUTSIDE RECORDS SUMMARY | 2025-05-17 12:47 | XMS_ITS | Clinical Summary ---
Author Organization [facility] Address [address] [place] [address] Care Team Providers Care Food Production Manager Name Role Phone Jamar Hastings MD Primary Care Provider [phone] Active Problems Problem Noted Date Diagnosed Date [...] age to complete this topic Insurance MEDICARE [facility] INSURANCE Care Teams Food Production Manager Relationship Specialty Start Date End Date Jamar Hastings MD [address] [place] [address] PCP - General INTERNAL MEDICINE 07/26/23
--- OUTSIDE RECORDS SUMMARY | 2025-05-17 12:47 | XMS_ITS | Clinical Summary ---
Author Organization [facility] Address [address] [place] [address] Phone Care Team Providers Care Hatchery Attendant Name Role Phone Jamar Hastings MD Primary Care Provider [phone] Allergies Active Allergy Reactions Criticality Noted Date [...] series) 2033 Medical Devices Implanted Type Area Crystal Grinder Device Identifier Shelf Expiration Date Model / Serial / Lot Cage Elevate X-Dunia 28x9mm [id number] - [id number] Implanted:Qty: 1 on 05/21/2019 by Manjeet Marie MD at [facility] N/A: Spine Lumbar [employer]- SOFAMOR DANEK 03/02/2027 [id number] / / [id number] Sealant Floseal 5ml [id number] - [id number] Implanted:Qty: 1 on 05/21/2019 by Manjeet Marie MD at [facility] Sealant N/A: Spine Lumbar DOSS- BIOSCIENCE 10/11/2020 [id number] / / [id number] [place] Dbm 8x10cm [id number] - [id number] Implanted:Qty: 1 on 05/21/2019 by Manjeet Marie MD at [facility] N/A: Spine Lumbar [employer] 12/25/2021 [id number] / [id number] / Matrix Dura Regenerative Durepair 1in 40511 - [id number] Implanted:Qty: 1 on 05/21/2019 by Manjeet Marie MD at [facility] N/A: Spine Lumbar [employer] INC 03/30/2021 [id number] / / [id number] Screw Set Implanted:Qty: 6 on 05/21/2019 by Manjeet Marie MD at [facility] N/A: Spine Lumbar [id number] / / Description:item add c.s load [id number] Screw 7.5x40mm Implanted:Qty: 3 on 05/21/2019 by Manjeet Marie MD at [facility] N/A: Spine Lumbar [id number] / / Description:item add c.s load [id number] Screw 6.5x40mm Implanted:Qty: 3 on 05/21/2019 by Manjeet Marie MD at [facility] N/A: Spine Lumbar [id number] / / Description:item add c.s load [id number] Screw 6.5x40mm Implanted:Qty: 3 on 05/21/2019 by Manjeet Marie MD at [facility] N/A: Spine Lumbar [id number] / / Description:item add c.s load [id number] Donte 80mm Implanted:Qty: 1 on 05/21/2019 by Manjeet Marie MD at [facility] N/A: Spine Lumbar [id number] / / Description:item add c.s load [id number] Donet 50mm Implanted:Qty: 1 on 05/21/2019 by Manjeet Marie MD at [facility] N/A: Spine Lumbar [id number] / / Description:item add c.s load [id number] Insurance [facility] BLUE ACCESS/TRUE BLUE PPO Advance Directives For more information, please contact: [phone] * Full Code (Latest Code Status on File) Date Activated Date Inactivated Comments 05/21/2019 5:01 PM 05/23/2019 5:35 PM Care Teams Hatchery Attendant Relationship Specialty Start Date End Date Jamar Hastings MD [address] [place] [address] PCP - General Internal Medicine 04/20/19
--- OUTSIDE RECORDS SUMMARY | 2025-05-17 12:47 | XMS_ITS | Patient Health Record ---
Author Organization [facility] Address [address] [place], [place] [address] Care Team Providers Care Woodwind Reeds Cutter Name Role Phone DIAMOND PURI Unavailable [phone] Jamar Hastings Unavailable Unavailable Reason For Referral No Information Plan Of Treatment No Information Insurance Providers Payer Name Payer Address Payer Phone Subscriber Number Group Number Insured Name Patient Relationship to Insured Coverage Start Date Coverage End Date [facility] ([facility]) ATTN CLAIMS [address] [place] [address] [id number] KATARINA QUIROZ Self - patient is the insured
--- OUTSIDE RECORDS SUMMARY | 2025-05-17 12:47 | XMS_ITS | Clinical Summary ---
Author Organization [facility] Address [address] [place] [address] Care Team Providers Care Furnace Setter Name Role Phone Jamar Hastings MD Primary Care Provider [phone] Allergies Active Allergy Reactions Criticality Noted Date [...] upplement Take 2 tablet/capsul e by mouth food editor before breakfast Active acetaminophen 500 mg capsuleIndications [...] Description 03/21/2025 9:50 AM CDT Office Visit [facility] Orthopaedic Surgery [address] [facility] 1st Floor [address] [place] [address] Francisco Rowan MD Arthritis of left ankle (Primary Dx) 03/21/2025 9:20 AM CDT - 03/21/2025 11:59 PM CDT Hospital Encounter [facility] Radiology at [facility] [address] [place] [address] Arthritis of left ankle Discharge Disposition: Discharge [...] EGD 10/31/2023 - 10/30/2024 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 X2 CHOLECYSTECTOMY unknown date Medical History [...] on file Legal Sex Female 1:01 PM SHIP MATE Gender Identity Not on file Sexual Orientation Not on file Obstetrics History Last Filed Vital Signs Vital Sign Reading Time Taken Comments Blood Pressure 141/67 09/12/2024 9:00 AM SHIP MATE Pulse 89 09/12/2024 9:00 AM SHIP MATE Temperature 37 C (98.6 F) 09/12/2024 8:08 AM SHIP MATE Respiratory Rate 20 09/12/2024 8:08 AM SHIP MATE Oxygen Saturation 100% 09/12/2024 9:00 AM SHIP MATE Inhaled Oxygen Concentration - - Weight 69.4 kg (153 lb) 12/13/2024 9:38 AM SHIP MATE Height 152.4 cm (5') 12/13/2024 9:38 AM SHIP MATE Body Mass Index 29.88 12/13/2024 9:38 AM SHIP MATE Plan of Treatment Health Maintenance Due Date [...] 09/12/2024, 08/18/2017 Medical Devices Implanted Type Area Certified Welding Inspector Device Identifier Shelf Expiration Date Model / Serial / Lot Arthrex Inc Graft Bone Filler Cortical Cancellous Cyro Freezer Arthrocell [facility] Putty Abs-2008-05 - [id number] - [id number] Implanted:Qty: 1 on 09/11/2024 by Francisco Rowan MD at [facility] Left: Ankle Arthrex Inc 06/20/2026 ABS-2008- 5 / [id number] 8833-23 / [id number] Arthrex Inc Low Profile Screws 6.7mm 75mm 28mm Self Drill Self Tap Cannulated Ew-4328-3695 - [id number] Implanted:Qty: 1 on 09/11/2024 by Francisco Rowan MD at [facility] Left: Ankle Arthrex Inc AR-8967-28 75 / / Arthrex Inc Low Profile Screws 4.5mm 38mm Self Drill Self Tap Cannulated Hex Hq-4957-99kd - [id number] Implanted:Qty: 1 on 09/11/2024 by Francisco Rowan MD at [facility] Left: Ankle Arthrex Inc AR-8945-38 PT / / Arthrex Inc Low Profile Screws 4.5mm 34mm Self Drill Self Tap Cannulated Hex Qw-3589-34yl - [id number] Implanted:Qty: 1 on 09/11/2024 by Francisco Rowan MD at [facility] Left: Ankle Arthrex Inc AR-8945-34 PT / / Arthrex Inc Staple Compression Supermx 03s28we Nitinol Ym-7709rgqs-9309 - [id number] Implanted:Qty: 1 on 09/11/2024 by Francisco Rowan MD at [facility] Left: Ankle Arthrex Inc [id number] 04/29/2029 AR-8719MXD S-1818 / / [id number] Arthrex Inc Staple Compression Supermx 90q46de Nitinol Rg-1570tukt-4146 - [id number] Implanted:Qty: 1 on 09/11/2024 by Francisco Rowan MD at [facility] Left: Ankle Ar[employer]rex Inc [id number] 04/29/2029 AR-8719MXD S-1818 / / [id number] Arthrex Inc Staple Compression Supermx 01r38kg Nitinol Ey-6439kanq-6591 - [id number] Implanted:Qty: 1 on 09/11/2024 by Francisco Rowan MD at [facility] Left: Ankle Arthrex Inc [id number] 04/29/2029 AR-8719MXD S-2020 / / [id number] Procedures Procedure Name Priority Date/Time Associated Diagnosis [...] pes planus. Mild disuse osteopenia. Procedure Note Terrecne Pride, - 03/21/2025 EXAMINATION: XR ANKLE LEFT [...] ult from Last 3 Months Insurance MEDICARE [facility] MEDICARE [facility] Advance Directives For more information, please contact: [phone] * Full Code (Latest Code Status on File) Date Activated Date Inactivated Comments 09/11/2024 1:33 PM 09/12/2024 3:03 PM Care Teams Furnace Setter Relationship Specialty Start Date End Date Jamar Hastings MD PCP - General 12/04/10
--- OUTSIDE RECORDS SUMMARY | 2025-05-17 12:47 | XMS_ITS | Clinical Summary ---
Author Organization [facility] Address [address] [place] [address] Phone Care Team Providers Care Dehydrator Tender Name Role Phone Jamar Hastings MD Primary Care Provider [phone] Social History Tobacco Use Types Packs/Day Years [...] patient's age to complete this topic Insurance [facility] Care Teams Dehydrator Tender Relationship Specialty Start Date End Date Jamar Hastings MD [address] [place] [address] PCP - General Internal Medicine 05/10/23
--- OUTSIDE RECORDS SUMMARY | 2025-05-17 12:47 | XMS_ITS | Continuity of Care Document ---
Author Organization [facility] Address [address] [place] [address] [address] [place] [address] Phone Care Team Providers Care Lei Seller Name Role Phone Jamir Morgan Unavailable Unavailable Procedures Procedure Date Office/outpatient Visit, [facility] Advance Directives Directive Yes / No Effective Date File Name No Information Encounters Encounter Description Practice Location Reason(s) For Visit Diagnoses Date Provider Providers Copied on Encounter Office/outpat ient Visit, [facility], [address], [place], [place], [id number], [place] tel:[phone] [facility] No Information [address]. [address], [place], [address], [place]. tel:[phone] Family History Family Member Type Diagnosis Age At Onset No Information Payers Payer name Insurance type Covered republican ID Lluvia kraft(s) [facility] CI [id number] Social History Type Description Quantity Date Captured [...]
--- OUTSIDE RECORDS SUMMARY | 2025-05-17 12:47 | XMS_ITS | Clinical Summary ---
Author Organization [facility] Address [address] [place] [address] Care Team Providers Care Licensed Journeyman Electrician Name Role Phone Unavailable Primary Care Provider Unavailabl e Source Comments [facility] [employer],non-owned Affiliates and Associated Physician Practices is amultiple site organization consisting of ambulatory clinics and hospital sitesin [place], [place], [place] and [place]. This disclosure is being madepursuant to the Care Everywhere program and may not contain all information available regarding this patient. Last updated 18.[facility] [employer] Social History Tobacco Use Types Packs/Day Years Used Date Smoking Tobacco: Never Assessed Comments Unknown Sex and Gender Information Value Date Recorded Sex Assigned at Not on file Legal Sex Female 9:40 AM CHIEF MEDICAL PHYSICIST Gender Identity Not on file Sexual Orientation [...] HUDSON Subscriber ID:Not on file (Home) Address: [address] [place] [address] Payer ID:Not on file Group ID:Not on file Type:Self Pay Address: [place], [place]
[2025-05-20 10:08] LABS: Osmolality, Urine 482 mOsmol/kg (.)
== END 2025-05-17 12:44 | disposition home or self-care (01) ==
PROVIDERS: Visit Provider Internal Medicine
DX: E87.1 Hypo-osmolality and hyponatremia (principal); I10 Essential (primary) hypertension; E78.5 Hyperlipidemia, unspecified
CPT/HCPCS: 83935

== ENCOUNTER 2025-05-21 11:36 | Outpatient (CLI) | payer MEDICARE, SELFPAY ==
--- NOTE | ~2025-05-21 | XR_ITS ---
XR knee RT 3V 05/21/2025 11:54 Indication: Right knee pain Procedure: 4 views right knee Comparison: 04/22/2025 Findings: No fracture, subluxation or dislocation. Moderate joint effusion. There is a right total kn ee arthroplasty. Prosthesis well seated. Impression: 1: Moderate joint effusion. Reviewed, dictated and finalized at location A. Impression: 1: Moderate joint effusion.
--- OUTSIDE RECORDS SUMMARY | 2025-05-21 11:40 | XMS_ITS | Continuity of Care Document ---
Author Organization [facility] Address [address] [place] [address] [address] [place] [address] Phone Care Team Providers Care Supervisor Hairspring Fabrication Name Role Phone Jamir Morgan Unavailable Unavailable Procedures Procedure Date Office/outpatient Visit, [facility] Advance Directives Directive Yes / No Effective Date File Name No Information Encounters Encounter Description Practice Location Reason(s) For Visit Diagnoses Date Provider Providers Copied on Encounter Office/outpat ient Visit, [facility], [address], [place], [place], [id number], [place] tel:[phone] [facility] No Information [address]. [address] , [address], [place], [address], [place]. tel:[phone] Family History Family Member Type Diagnosis Age At Onset No Information Payers Payer name Insurance type Covered republican ID Lluvia kraft(s) [facility] CI [id number] Social History Type Description Quantity Date Captured [...]
--- OUTSIDE RECORDS SUMMARY | 2025-05-21 11:40 | XMS_ITS | Clinical Summary ---
Author Organization [facility] Address [address] [place] [address] Phone Care Team Providers Care Rn Transport Name Role Phone Jamar Hastings MD Primary Care Provider [phone] Social History Tobacco Use Types Packs/Day Years [...] patient's age to complete this topic Insurance [facility] Care Teams Rn Transport Relationship Specialty Start Date End Date Jamar Hastings MD [address] [place] [address] PCP - General Internal Medicine 05/10/23
--- OUTSIDE RECORDS SUMMARY | 2025-05-21 11:40 | XMS_ITS | Clinical Summary ---
Author Organization [facility] Address [address] [place] [address] Care Team Providers Care Kiln Door Builder Name Role Phone Jamar Hastings MD Primary Care Provider [phone] Active Problems Problem Noted Date Diagnosed Date [...] age to complete this topic Insurance MEDICARE [facility] INSURANCE Care Teams Kiln Door Builder Relationship Specialty Start Date End Date Jamar Hastings MD [address] [place] [address] PCP - General INTERNAL MEDICINE 07/26/23
--- OUTSIDE RECORDS SUMMARY | 2025-05-21 11:41 | XMS_ITS | Referral Summary ---
Author Organization [facility] Address [address] [place] [address] Care Team Providers Care Core Blower Name Role Phone Jamar Hastings MD Primary Care Provider [phone] Encounters Date Type Department Care Team Description 03/21/2025 9:20 AM CDT - 03/21/2025 11:59 PM CDT Hospital Encounter [facility] Radiology at [facility] [address] [place] [address] Arthritis of left ankle Discharge Disposition: Discharge to home or self care 03/21/2025 9:50 AM CDT Office Visit [facility] Orthopaedic Surgery [address] [facility] 1st Floor [address] [place] [address] Francisco Rowan MD Arthritis of left ankle [...] upplement Take 2 tablet/capsul e by mouth morning caregiver before breakfast Active acetaminophen 500 mg capsuleIndications [...] on file Legal Sex Female 1:01 PM SENIOR SOFTWARE QA ANALYST Gender Identity Not on file Sexual Orientation Not on file Last Filed Vital Signs Vital Sign Reading Time Taken Comments Blood Pressure 141/67 09/12/2024 9:00 AM SENIOR SOFTWARE QA ANALYST Pulse 89 09/12/2024 9:00 AM SENIOR SOFTWARE QA ANALYST Temperature 37 C (98.6 F) 09/12/2024 8:08 AM SENIOR SOFTWARE QA ANALYST Respiratory Rate 20 09/12/2024 8:08 AM SENIOR SOFTWARE QA ANALYST Oxygen Saturation 100% 09/12/2024 9:00 AM SENIOR SOFTWARE QA ANALYST Inhaled Oxygen Concentration - - Weight 69.4 kg (153 lb) 12/13/2024 9:38 AM SENIOR SOFTWARE QA ANALYST Height 152.4 cm (5') 12/13/2024 9:38 AM SENIOR SOFTWARE QA ANALYST Body Mass Index 29.88 12/13/2024 9:38 AM SENIOR SOFTWARE QA ANALYST Plan of Treatment Not on file Medical Devices Implanted Type Area Auto Accessories Installer Device Identifier Shelf Expiration Date Model / Serial / Lot Arthrex Inc Graft Bone Filler Cortical Cancellous Cyro Freezer Arthrocell 5c Putty Abs - [id number] - [id number] Implanted:Qty: 1 on 09/11/2024 by Francisco Rowan MD at [facility] Left: Ankle Arthrex Inc 06/20/2026 ABS- 5 / [id number] / [id number] Arthrex Inc Low Profile Screws 6.7mm 75mm 28mm Self Drill Self Tap Cannulated Kq-[id number] - [id number] Implanted:Qty: 1 on 09/11/2024 by Francisco Rowan MD at [facility] Left: Ankle Arthrex Inc AR-8967-28 75 / / Arthrex Inc Low Profile Screws 4.5mm 38mm Self Drill Self Tap Cannulated Hex Rv-[id number] - [id number] Implanted:Qty: 1 on 09/11/2024 by Francisco Rowan MD at [facility] Left: Ankle Arthrex Inc AR-8945-38 PT / / Arthrex Inc Low Profile Screws 4.5mm 34mm Self Drill Self Tap Cannulated Hex Qb-[id number] - [id number] Implanted:Qty: 1 on 09/11/2024 by Francisco Rowan MD at [facility] Left: Ankle Arthrex Inc AR-8945-34 PT / / Arthrex Inc Staple Compression Supermx 57w48ws Nitinol Mt-[id number] - [id number] Implanted:Qty: 1 on 09/11/2024 by Francisco Rowan MD at [facility] Left: Ankle Ar[employer]rex Inc [id number] 04/29/2029 AR-8719MXD S-1818 / / [id number] Arthrex Inc Staple Compression Supermx 22k85wv Nitinol Jp-5392lola-[id number] - [id number] Implanted:Qty: 1 on 09/11/2024 by Francisco Rowan MD at [facility] Left: Ankle Ar[employer]rex Inc [id number] 04/29/2029 AR-8719MXD S-1818 / / [id number] Ar[employer]rex Inc Staple Compression Supermx 60n38xk Nitinol Uw-[id number]-[id number] - [id number] Implanted:Qty: 1 on 09/11/2024 by Francisco Rowan MD at [facility] Left: Ankle Arthrex Inc [id number] 04/29/2029 AR-8719MXD S-2020 / / [id number] Procedures Procedure Name Priority Date/Time Associated Diagnosis [...] ult from Last 3 Months Insurance MEDICARE [facility] MEDICARE [facility] Advance Directives For more information, please contact: [phone] * Full Code (Latest Code Status on File) Date Activated Date Inactivated Comments 09/11/2024 1:33 PM 09/12/2024 3:03 PM Care Teams Core Blower Relationship Specialty Start Date End Date Jamar Hastings MD PCP - General 12/04/10
--- OUTSIDE RECORDS SUMMARY | 2025-05-21 11:41 | XMS_ITS | Patient Health Record ---
Author Organization [facility] Address [address] [place], [place] [address] Care Team Providers Care Vault Worker Name Role Phone DIAMOND PURI Unavailable [phone] Jamar Hastings Unavailable Unavailable Reason For Referral No Information Plan Of Treatment No Information Insurance Providers Payer Name Payer Address Payer Phone Subscriber Number Group Number Insured Name Patient Relationship to Insured Coverage Start Date Coverage End Date [facility] ATTN CLAIMS [address] [place] [address] [id number] KATARINA QUIROZ Self - patient is the insured
--- OUTSIDE RECORDS SUMMARY | 2025-05-21 11:41 | XMS_ITS | Clinical Summary ---
Author Organization [facility] Address [address] [place] [address] Care Team Providers Care Rn Transitional Care Name Role Phone Unavailable Primary Care Provider Unavailabl e Source Comments [facility] [employer],non-owned Affiliates and Associated Physician Practices is amultiple site organization consisting of ambulatory clinics and hospital sitesin [place], [place], [place] and [place]. This disclosure is being madepursuant to the Care Everywhere program and may not contain all information available regarding this patient. Last updated 18.[facility] [employer] Social History Tobacco Use Types Packs/Day Years Used Date Smoking Tobacco: Never Assessed Comments Unknown Sex and Gender Information Value Date Recorded Sex Assigned at Not on file Legal Sex Female 9:40 AM PLAY BACK OPERATOR Gender Identity Not on file Sexual [...] HUDSON Subscriber ID:Not on file (Home) Address: [address] [place] [address] Payer ID:Not on file Group ID:Not on file Type:Self Pay Address: [place], [place]
--- OUTSIDE RECORDS SUMMARY | 2025-05-21 11:41 | XMS_ITS | Clinical Summary ---
Author Organization [facility] Address [address] [place] [address] Care Team Providers Care Feather Edger Name Role Phone Jamar Hastings MD Primary Care Provider [phone] Allergies Active Allergy Reactions Criticality Noted Date [...] upplement Take 2 tablet/capsul e by mouth student loan counselor before breakfast Active acetaminophen 500 mg capsuleIndications [...] Description 03/21/2025 9:50 AM CDT Office Visit [facility] Orthopaedic Surgery [address] [facility] 1st Floor [address] [place] [address] Francisco Rowan MD Arthritis of left ankle (Primary Dx) 03/21/2025 9:20 AM CDT - 03/21/2025 11:59 PM CDT Hospital Encounter [facility] Radiology at [facility] Medicine [address] [place] [address] Arthritis of left ankle Discharge Disposition: Discharge [...] EGD 10/31/2023 - 10/30/2024 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 X2 CHOLECYSTECTOMY unknown date Medical History [...] on file Legal Sex Female 1:01 PM SPECIAL CERTIFICATE DICTATOR Gender Identity Not on file Sexual Orientation Not on file Obstetrics History Last Filed Vital Signs Vital Sign Reading Time Taken Comments Blood Pressure 141/67 09/12/2024 9:00 AM SPECIAL CERTIFICATE DICTATOR Pulse 89 09/12/2024 9:00 AM SPECIAL CERTIFICATE DICTATOR Temperature 37 C (98.6 F) 09/12/2024 8:08 AM SPECIAL CERTIFICATE DICTATOR Respiratory Rate 20 09/12/2024 8:08 AM SPECIAL CERTIFICATE DICTATOR Oxygen Saturation 100% 09/12/2024 9:00 AM SPECIAL CERTIFICATE DICTATOR Inhaled Oxygen Concentration - - Weight 69.4 kg (153 lb) 12/13/2024 9:38 AM SPECIAL CERTIFICATE DICTATOR Height 152.4 cm (5') 12/13/2024 9:38 AM SPECIAL CERTIFICATE DICTATOR Body Mass Index 29.88 12/13/2024 9:38 AM SPECIAL CERTIFICATE DICTATOR Plan of Treatment Health Maintenance Due Date [...] 09/12/2024, 08/18/2017 Medical Devices Implanted Type Area Copper Flotation Operator Device Identifier Shelf Expiration Date Model / Serial / Lot Arthrex Inc Graft Bone Filler Cortical Cancellous Cyro Freezer Arthrocell [facility] Putty Abs-2008-05 - [id number] - [id number] Implanted:Qty: 1 on 09/11/2024 by Francisco Rowan MD at [facility] Left: Ankle Arthrex Inc 06/20/2026 ABS-2008- 5 / [id number] / [id number] Arthrex Inc Low Profile Screws 6.7mm 75mm 28mm Self Drill Self Tap Cannulated Tg-[id number] - [id number] Implanted:Qty: 1 on 09/11/2024 by Francisco Rowan MD at [facility] Left: Ankle Ar[employer]rex Inc AR-8967-28 75 / / Ar[employer]rex Inc Low Profile Screws 4.5mm 38mm Self Drill Self Tap Cannulated Hex Hh-1331-40qz - [id number] Implanted:Qty: 1 on 09/11/2024 by Francisco Rowan MD at [facility] Left: Ankle Ar[employer]rex Inc AR-8945-38 PT / / Ar[employer]rex Inc Low Profile Screws 4.5mm 34mm Self Drill Self Tap Cannulated Hex Tw-1426-75qk - [id number] Implanted:Qty: 1 on 09/11/2024 by Francisco Rowan MD at [facility] Left: Ankle Ar[employer]rex Inc AR-8945-34 PT / / Ar[employer]rex Inc Staple Compression Supermx 78z95kh Nitinol Qm-8538komz-[id number] - [id number] Implanted:Qty: 1 on 09/11/2024 by Francisco Rowan MD at [facility] Left: Ankle Ar[employer]rex Inc [id number] 04/29/2029 AR-8719MXD S-1818 / / [id number] Ar[employer]rex Inc Staple Compression Supermx 40z77ar Nitinol Oq-7371uyfp-[id number] - [id number] Implanted:Qty: 1 on 09/11/2024 by Francisco Rowan MD at [facility] Left: Ankle Ar[employer]rex Inc [id number] 04/29/2029 AR-8719MXD S-1818 / / [id number] Ar[employer]rex Inc Staple Compression Supermx 63l26fi Nitinol Nk-2455twfr-3790 - [id number] Implanted:Qty: 1 on 09/11/2024 by Francisco Rowan MD at [facility] Left: Ankle Ar[employer]rex Inc [id number] 04/29/2029 AR-8719MXD S-2020 / / [id number] Procedures Procedure Name Priority Date/Time Associated Diagnosis [...] ult from Last 3 Months Insurance MEDICARE [facility] MEDICARE [facility] Advance Directives For more information, please contact: [phone] * Full Code (Latest Code Status on File) Date Activated Date Inactivated Comments 09/11/2024 1:33 PM 09/12/2024 3:03 PM Care Teams Feather Edger Relationship Specialty Start Date End Date Jamar Hastings MD PCP - General 12/04/10
== END 2025-05-21 11:37 | disposition home or self-care (01) ==
PROVIDERS: PCP Internal Medicine; Visit Provider Orthopaedic Surgery
DX: Z96.651 Presence of right artificial knee joint (principal); M25.461 Effusion, right knee
CPT/HCPCS: 73562

== ENCOUNTER 2025-06-07 08:06 | Outpatient (CLI) | payer MEDICARE, SELFPAY ==
--- OUTSIDE RECORDS SUMMARY | 2025-06-07 08:10 | XMS_ITS | Clinical Summary ---
Author Organization [facility] Address [address] [place] [address] Care Team Providers Care Bender Helper Name Role Phone Jamar Hastings MD Primary Care Provider [phone] Active Problems Problem Noted Date Diagnosed Date [...] age to complete this topic Insurance [facility] Care Teams Bender Helper Relationship Specialty Start Date End Date Jamar Hastings MD [address] [place] [address] PCP - General INTERNAL MEDICINE 07/26/23
--- OUTSIDE RECORDS SUMMARY | 2025-06-07 08:10 | XMS_ITS | Clinical Summary ---
Author Organization [facility] Address [address] [place] [address] Phone Care Team Providers Care Geophysical Support Specialist Name Role Phone Jamar Hastings MD Primary Care Provider [phone] Social History Tobacco Use Types Packs/Day Years Used Date Smoking Tobacco: Never Assessed Comments Unknown Sex and Gender Information Value Date Recorded Sex Assigned at Not on file Legal Sex Female 4:29 PM CDT Gender Identity Not on file Sexual Orientation Not on file Plan of Treatment Health Maintenance Due Date Last Done Comments Hepatitis C Virus (HCV) Screening 1958 Cologuard 2003 Colonoscopy 2003 Colorectal Cancer [...] patient's age to complete this topic Insurance [facility] Care Teams Geophysical Support Specialist Relationship Specialty Start Date End Date Jamar Hastings MD [address] [place] [address] PCP - General Internal Medicine 05/10/23
--- OUTSIDE RECORDS SUMMARY | 2025-06-07 08:11 | XMS_ITS | Clinical Summary ---
Author Organization [facility] Address [address] [place] [address] Phone Care Team Providers Care Tissue Coordinator Name Role Phone Jamar Hastings MD Primary Care Provider [phone] Allergies Active Allergy Reactions Criticality Noted Date [...] series) 2033 Medical Devices Implanted Type Area Nipple Threader Device Identifier Shelf Expiration Date Model / Serial / Lot Cage Elevate X-Dunia 28x9mm [id number] - [id number] Implanted:Qty: 1 on 05/21/2019 by Manjeet Marie MD at [facility] N/A: Spine Lumbar [employer]- SOFAMOR DANEK 03/02/2027 [id number] / / [id number] Sealant Floseal 5ml [id number] - [id number] Implanted:Qty: 1 on 05/21/2019 by Manjeet Marie MD at [facility] Sealant N/A: Spine Lumbar DOSS- BIOSCIENCE 10/11/2020 [id number] / / [id number] Decorah Dbm 8x10cm [id number] - [id number] Implanted:Qty: 1 on 05/21/2019 by Manjeet Marie MD at [facility] N/A: Spine Lumbar [employer] 12/25/2021 [id number] / [id number] / Matrix Dura Regenerative Durepair 1in [id number] - [id number] Implanted:Qty: 1 on 05/21/2019 by Manjeet Marie MD at [facility] N/A: Spine Lumbar [employer] 03/30/2021 [id number] / / [id number] Screw Set Implanted:Qty: 6 on 05/21/2019 by Manjeet Marie MD at [facility] N/A: Spine Lumbar [id number] / / Description:item add c.s load [id number] Screw 7.5x40mm Implanted:Qty: 3 on 05/21/2019 by Manjeet Marie MD at [facility] N/A: Spine Lumbar [id number] / / Description:item add c.s load [id number] Screw 6.5x40mm Implanted:Qty: 3 on 05/21/2019 by Manjeet Marie MD at [facility] N/A: Spine Lumbar [id number] / / Description:item add c.s load [id number] Screw 6.5x40mm Implanted:Qty: 3 on 05/21/2019 by Manjeet Marie MD at [facility] N/A: Spine Lumbar [id number] / / Description:item add c.s load [id number] Donte 80mm Implanted:Qty: 1 on 05/21/2019 by Manjeet Marie MD at [facility] N/A: Spine Lumbar [id number] / / Description:item add c.s load [id number] Donte 50mm Implanted:Qty: 1 on 05/21/2019 by Manjeet Marie MD at [facility] N/A: Spine Lumbar [id number] / / Description:item add c.s load [id number] Insurance [facility] BLUE ACCESS/TRUE BLUE PPO Advance Directives For more information, please contact: [phone] * Full Code (Latest Code Status on File) Date Activated Date Inactivated Comments 05/21/2019 5:01 PM 05/23/2019 5:35 PM Care Teams Tissue Coordinator Relationship Specialty Start Date End Date Jamar Hastings MD [address] [place] [address] PCP - General Internal Medicine 04/20/19
--- OUTSIDE RECORDS SUMMARY | 2025-06-07 08:11 | XMS_ITS | Clinical Summary ---
Author Organization [facility] Address [address] [place] [address] Care Team Providers Care Translator And Interpreter Name Role Phone Unavailable Primary Care Provider Unavailabl e Source Comments [facility],non-owned Affiliates and Associated Physician Practices is amultiple site organization consisting of ambulatory clinics and hospital sitesin [place], [place], [place] and [place]. This disclosure is being madepursuant to the Care Everywhere program and may not contain all information available regarding this patient. Last updated 18.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
--- OUTSIDE RECORDS SUMMARY | 2025-06-07 08:11 | XMS_ITS | Continuity of Care Document ---
Author Organization [facility] Address [address] [place] [address] [address] [place] [address] Phone Care Team Providers Care Screenplay Writer Name Role Phone Jamir Morgan Unavailable Unavailable Procedures Procedure Date Office/outpatient Visit, [facility] Advance Directives Directive Yes / No Effective Date File Name No Information Encounters Encounter Description Practice Location Reason(s) For Visit Diagnoses Date Provider Providers Copied on Encounter Office/outpat ient Visit, [facility], [address], [place], [place], [address], [place] tel:[phone] [facility] No Information [address]. [address], [place], [address], [place]. tel:[phone] Family History Family Member Type Diagnosis Age At Onset No Information Payers Payer name Insurance type Covered alliance party ID Lluvia kraft(s) [facility] CI [id number] Social History Type Description Quantity Date Captured [...]
--- OUTSIDE RECORDS SUMMARY | 2025-06-07 08:11 | XMS_ITS | Clinical Summary ---
Author Organization [facility] Address [address] [place] [address] Care Team Providers Care Flight Surgeon Name Role Phone Jamar Hastings MD Primary Care Provider [phone] Allergies Active Allergy Reactions Criticality Noted Date [...] upplement Take 2 tablet/capsul e by mouth it field technician before breakfast Active acetaminophen 500 mg capsuleIndications [...] Description 03/21/2025 9:50 AM CDT Office Visit [facility] Orthopaedic Surgery [address] 1[address] [place] [address] Francisco Rowan MD Arthritis of left ankle (Primary Dx) 03/21/2025 9:20 AM CDT - 03/21/2025 11:59 PM CDT Hospital Encounter [facility] Radiology at [facility] Medicine [address] [place] [address] Arthritis of left ankle Discharge Disposition: Discharge [...] EGD 10/31/2023 - 10/30/2024 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 X2 CHOLECYSTECTOMY unknown date Medical History [...] on file Legal Sex Female 1:01 PM 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 FINISHER Gender Identity Not on file Sexual Orientation Not on file Obstetrics History Last Filed Vital Signs Vital Sign Reading Time Taken Comments Blood Pressure 141/67 09/12/2024 9:00 AM WET FINISHER Pulse 89 09/12/2024 9:00 AM WET FINISHER Temperature 37 C (98.6 F) 09/12/2024 8:08 AM WET FINISHER Respiratory Rate 20 09/12/2024 8:08 AM WET FINISHER Oxygen Saturation 100% 09/12/2024 9:00 AM WET FINISHER Inhaled Oxygen Concentration - - Weight 69.4 kg (153 lb) 12/13/2024 9:38 AM WET FINISHER Height 152.4 cm (5') 12/13/2024 9:38 AM WET FINISHER Body Mass Index 29.88 12/13/2024 9:38 AM WET FINISHER Plan of Treatment Health Maintenance Due Date Last Done Comments Breast Cancer Screening-Mammogram 1958 Colon Cancer Screening-Colonoscopy 1960 Depression Screening 1958 Hepatitis C Screening 1958 Osteoporosis Screening-Bone Density Scan 1958 Hepatitis B Screening 1976 Pneumococcal vaccine 65+ (1 of 1 - PCV) 2008 DTaP/Tdap/Td Vaccine (2 - Td or Tdap) 02/07/202207/2012 Well Visit 65+ 2023 Covid-19 Vaccine ( season) 2024 11/30/2021, 01/27/2021, 01/06/2021 Influenza Vaccine (#1) 2025 09/12/2024, 2016 Fall Risk Assessment 09/12/2025 09/12/2024 Zoster Vaccine Completed 04/24/2019, 12/29, 12/27/2016 Medical Devices Implanted Type Area Textile Knitter Device Identifier Shelf Expiration Date Model / Serial / Lot Arthrex Inc Graft Bone Filler Cortical Cancellous Cyro Freezer Arthrocell [facility] Putty Abs-2008- - [id number] - [id number] Implanted:Qty: 1 on 09/11/2024 by Francisco Rowan MD at [facility] Left: Ankle Arthrex Inc 06/20/2026 ABS- 5 / [id number] / [id number] Ar[employer]rex Inc Low Profile Screws 6.7mm 75mm 28mm Self Drill Self Tap Cannulated Ec-6930-5555 - [id number] Implanted:Qty: 1 on 09/11/2024 by Francisco Rowan MD at [facility] Left: Ankle Ar[employer] Inc AR-8967-28 75 / / Ar[employer] Inc Low Profile Screws 4.5mm 38mm Self Drill Self Tap Cannulated Hex Kx-0740-55qe - [id number] Implanted:Qty: 1 on 09/11/2024 by Francisco Rowan MD at [facility] Left: Ankle Ar[employer]rex Inc AR-8945-38 PT / / Ar[employer] Inc Low Profile Screws 4.5mm 34mm Self Drill Self Tap Cannulated Hex Xe-[id number] - [id number] Implanted:Qty: 1 on 09/11/2024 by Francisco Rowan MD at [facility] Left: Ankle Ar[employer]rex Inc AR-8945-34 PT / / Ar[employer] Inc Staple Compression Supermx 24s00hb Nitinol Wl-2483hxzb-6571 - [id number] Implanted:Qty: 1 on 09/11/2024 by Francisco Rowan MD at [facility] Left: Ankle [employer]rex Inc [id number] 04/29/2029 AR-8719MXD S-1818 / / [id number] Ar[employer]rex Inc Staple Compression Supermx 90v65ft Nitinol Sg-8925ulpe-3111 - [id number] Implanted:Qty: 1 on 09/11/2024 by Francisco Rowan MD at [facility] Left: Ankle [employer]rex Inc [id number] 04/29/2029 AR-8719MXD S-1818 / / [id number] Ar[employer] Inc Staple Compression Supermx 92w78xg Nitinol Ym-2477othd-0757 - [id number] Implanted:Qty: 1 on 09/11/2024 by Francisco Rowan MD at [facility] Left: Ankle [employer]rex Inc [id number] 04/29/2029 AR-8719MXD S-2020 / / [id number] Procedures Procedure Name Priority Date/Time Associated Diagnosis [...] Advance Directives For more information, please contact: [phone] * Full Code (Latest Code Status on File) Date Activated Date Inactivated Comments 09/11/2024 1:33 PM 09/12/2024 3:03 PM Care Teams Flight Surgeon Relationship Specialty Start Date End Date Jamar Hastings MD PCP - General 12/04/10
--- OUTSIDE RECORDS SUMMARY | 2025-06-07 08:11 | XMS_ITS | Patient Health Record ---
Author Organization [facility] Address [address] [place], [place] [address] Care Team Providers Care Binder Stripper Hand Name Role Phone DIAMOND PURI Unavailable [phone] Jamar Hastings Unavailable Unavailable Reason For Referral No Information Plan Of Treatment No Information Insurance Providers Payer Name Payer Address Payer Phone Subscriber Number Group Number Insured Name Patient Relationship to Insured Coverage Start Date Coverage End Date [facility] ([facility]) ATTN CLAIMS [address] [place] [address] [id number] KATARINA QUIROZ Self - patient is the insured
[2025-06-07 08:20] LABS: Hematocrit 36.6 % (35.0-42.0); Hemoglobin 12.0 g/dL (11.7-13.8); Mean Corpuscular HGB Conc 32.8 g/dL (32-36); Mean Corpuscular Hemoglobin 29.6 pg (27.0-31.0); Mean Corpuscular Volume 90.4 fL (78.0-102.0); Platelet Count Result 378 K/mm3 (150-420); Red Blood Count 4.05 M/mm3 (4.20-5.40); White Blood Count 7.2 K/mm3 (4.8-10.8)
[2025-06-07 08:55] LABS: Alanine Aminotransferase 17 U/L (6-35); Albumin Level 4.5 g/dL (3.5-5.1); Alkaline Phosphatase 69 U/L (38-126); Anion Gap 6 mmol/L (4-12); Aspartate Amino Transferase 26 U/L (14-36); Bilirubin,Total 0.5 mg/dL (0.2-1.3); Blood Urea Nitrogen 14 mg/dL (7-17); Calcium 10.4 mg/dL (8.4-10.2); Carbon Dioxide 28 mmol/L (22-30); Chloride 104 mmol/L (98-107); Cholesterol 213 mg/dL (0-200); Estimated Glomerular Filt Rate > 60; Glucose 107 mg/dL (65-110); HDL Direct 90 mg/dL; Osmolality Calculated 286 mOsm/kg (285-295); Potassium 5.0 mmol/L (3.4-5.0); Sodium 138 mmol/L (137-145); Total Protein 7.2 g/dL (6.3-8.2); Triglycerides 68 mg/dL (<150)
[2025-06-07 09:25] LABS: Thyroid Stimulating Hormone 0.388 uIU/mL (0.465-4.680)
[2025-06-09 20:06] LABS: Osmolality, Urine 415 mOsmol/kg (.)
[2025-06-10 11:09] LABS: Osmolality, Serum 279 mOsmol/kg (280-301)
== END 2025-06-07 08:07 | disposition home or self-care (01) ==
LOC: CHSLAB 08:08
PROVIDERS: PCP Internal Medicine; Visit Provider Internal Medicine
DX: I10 Essential (primary) hypertension (principal); E87.1 Hypo-osmolality and hyponatremia; E78.5 Hyperlipidemia, unspecified
CPT/HCPCS: 36415; 80053; 80061; 83930; 83935; 84443; 85027

== ENCOUNTER 2025-07-04 12:41 | Outpatient (CLI) | payer MEDICARE, SELFPAY ==
--- OUTSIDE RECORDS SUMMARY | 2025-07-04 12:52 | XMS_ITS | Clinical Summary ---
Author Organization [facility] Address [address] [place] [address] Phone Care Team Providers Care Geology Teacher Name Role Phone Jamar Hastings MD Primary Care Provider [phone] Social History Tobacco Use Types Packs/Day Years [...] 1 - PCV) 2008 Influenza Immunization (#1) 2025 08/18/2017 SARS-COV-2 Immunization ( season) 2025 11/04/2022, 11/30/2021, 01/27/2021, Additional history exists Respiratory [...] patient's age to complete this topic Insurance [facility] Care Teams Geology Teacher Relationship Specialty Start Date End Date Jamar Hastings MD [address] [place] [address] PCP - General Internal Medicine 05/10/23
--- OUTSIDE RECORDS SUMMARY | 2025-07-04 12:52 | XMS_ITS | Patient Health Record ---
Author Organization [facility] Address [address] [place], [place] [address] Care Team Providers Care Real Estate Recruiter Name Role Phone DIAMOND PURI Unavailable [phone] Jamar Hastings Unavailable Unavailable Reason For Referral No Information Plan Of Treatment No Information Insurance Providers Payer Name Payer Address Payer Phone Subscriber Number Group Number Insured Name Patient Relationship to Insured Coverage Start Date Coverage End Date [facility] ([facility]) ATTN CLAIMS [address] [place] [address] [id number] KATARINA QUIROZ Self - patient is the insured
--- OUTSIDE RECORDS SUMMARY | 2025-07-04 12:52 | XMS_ITS | Clinical Summary ---
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 X2 CHOLECYSTECTOMY unknown date Medical History [...] on file Legal Sex Female 1:01 PM COAL BAGGER Gender Identity Not on file Sexual Orientation Not on file Obstetrics History Last Filed Vital Signs Vital Sign Reading Time Taken Comments Blood Pressure 141/67 09/12/2024 9:00 AM COAL BAGGER Pulse 89 09/12/2024 9:00 AM COAL BAGGER Temperature 37 C (98.6 F) 09/12/2024 8:08 AM COAL BAGGER Respiratory Rate 20 09/12/2024 8:08 AM COAL BAGGER Oxygen Saturation 100% 09/12/2024 9:00 AM COAL BAGGER Inhaled Oxygen Concentration - - Weight 69.4 kg (153 lb) 12/13/2024 9:38 AM COAL BAGGER Height 152.4 cm (5') 12/13/2024 9:38 AM COAL BAGGER Body Mass Index 29.88 12/13/2024 9:38 AM COAL BAGGER Plan of Treatment Health Maintenance Due Date [...] ( - season) 2024 11/30/2021, 01/27/2021, 01/06/2021 Influenza Vaccine (#1) 2025 09/12/2024, 2016 Fall Risk Assessment 09/12/2025 09/12/2024 Zoster Vaccine Completed 04/24/2019, 12/29, 12/27/2016 Medical Devices Implanted Type Area Analyst Geochemical Prospecting Device Identifier Shelf Expiration Date Model / Serial / Lot Arthrex Inc Graft Bone Filler Cortical Cancellous Cyro Freezer Arthrocell 5cc Putty Abs-2008-05 - [id number] - [id number] Implanted:Qty: 1 on 09/11/2024 by Francisco Rowan Jr., MD at [facility] Left: Ankle Ar[employer]rex Inc 06/20/2026 ABS-2008- 5 / [id number] / [id number] Ar[employer]rex Inc Low Profile Screws 6.7mm 75mm 28mm Self Drill Self Tap Cannulated Yd-0198-8627 - [id number] Implanted:Qty: 1 on 09/11/2024 by Francisco Rowan Jr., MD at [facility] Left: Ankle Ar[employer]rex Inc AR-8967-28 75 / / Ar[employer]rex Inc Low Profile Screws 4.5mm 38mm Self Drill Self Tap Cannulated Hex Np-3405-03bj - [id number] Implanted:Qty: 1 on 09/11/2024 by Francisco Rowan Jr., MD at [facility] Left: Ankle Ar[employer]rex Inc AR-8945-38 PT / / Ar[employer]rex Inc Low Profile Screws 4.5mm 34mm Self Drill Self Tap Cannulated Hex Dn-9735-89kz - [id number] Implanted:Qty: 1 on 09/11/2024 by Francisco Rowan Jr., MD at [facility] Left: Ankle Ar[employer] Inc AR-8945-34 PT / / Ar[employer] Inc Staple Compression Supermx 25r53ll Nitinol Xh-3361pygf-0822 - [id number] Implanted:Qty: 1 on 09/11/2024 by Francisco Rowan Jr., MD at [facility] Left: Ankle Ar[employer] Inc [id number] 04/29/2029 AR-8719MXD S-1818 / / [id number] Ar[employer]rex Inc Staple Compression Supermx 34q85sk Nitinol Lv-4441edaa-6889 - [id number] Implanted:Qty: 1 on 09/11/2024 by Francisco Rowan Jr., MD at [facility] Left: Ankle Ar[employer]rex Inc [id number] 04/29/2029 AR-8719MXD S-1818 / / [id number] Ar[employer]rex Inc Staple Compression Supermx 82h78vj Nitinol Tl-8139qkpr-6497 - [id number] Implanted:Qty: 1 on 09/11/2024 by Francisco Rowan Jr., MD at [facility] Left: Ankle Ar[employer]rex Inc [id number] 04/29/2029 AR-8719MXD S-2020 / / [id number] Insurance MEDICARE [facility] MEDICARE [facility] Advance Directives For more information, please contact: [phone] * Full Code (Latest Code Status on File) Date Activated Date Inactivated Comments 09/11/2024 1:33 PM 09/12/2024 3:03 PM Care Teams Care Associate Relationship Specialty Start Date End Date Jamar Hastings MD PCP - General 12/04/10
--- OUTSIDE RECORDS SUMMARY | 2025-07-04 12:52 | XMS_ITS | Clinical Summary ---
Author Organization [facility] Address [address] [place] [address] Care Team Providers Care Glass Maker Name Role Phone Unavailable Primary Care Provider Unavailabl e Source Comments [facility],non-owned Affiliates and Associated Physician Practices is amultiple site organization consisting of ambulatory clinics and hospital sitesin [place], [place], [place]. This disclosure is being madepursuant to the Care Everywhere program and may not contain all information available regarding this patient. 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
[2025-07-04 13:40] LABS: Albumin Level 4.3 g/dL (3.5-5.1); Anion Gap 6 mmol/L (4-12); Blood Urea Nitrogen 17 mg/dL (7-17); Calcium 10.0 mg/dL (8.4-10.2); Carbon Dioxide 29 mmol/L (22-30); Chloride 103 mmol/L (98-107); Estimated Glomerular Filt Rate > 60; Glucose 93 mg/dL (65-110); Osmolality Calculated 287 mOsm/kg (285-295); Potassium 4.9 mmol/L (3.4-5.0); Sodium 138 mmol/L (137-145)
[2025-07-04 14:11] LABS: Thyroid Stimulating Hormone Reflex 1.290 uIU/mL (0.465-4.68)
[2025-07-05 15:09] LABS: ACE 29 U/L (14-82); Albumin 4.1 g/dL (2.9-4.4); Alpha-1-Globulin 0.2 g/dL (0.0-0.4); Alpha-2-Globulin 0.6 g/dL (0.4-1.0); Gamma Globulin 0.9 g/dL (0.4-1.8)
[2025-07-05 22:07] LABS: Osmolality, Urine 710 mOsmol/kg (.)
[2025-07-08 11:08] LABS: Osmolality, Serum 277 mOsmol/kg (280-301)
[2025-07-11 12:08] LABS: 1,25-Dihydroxy, Vitamin D-2 19 pg/mL (.); 1,25-Dihydroxy, Vitamin D-3 63 pg/mL (.); Total 1,25-Dihydroxy,Vitamin D 82 pg/mL (.)
== END 2025-07-04 12:42 | disposition home or self-care (01) ==
PROVIDERS: PCP Internal Medicine; Visit Provider Internal Medicine Nephrology
DX: E87.1 Hypo-osmolality and hyponatremia (principal); E55.9 Vitamin D deficiency, unspecified; Z79.899 Other long term (current) drug therapy
CPT/HCPCS: 36415; 80069; 82164; 82306; 82340; 82397; 82533; 82570; 82652; 83930; 83935; 83970; 84155; 84165; 84300; 84443; 84590

== ENCOUNTER 2025-07-26 08:18 | Outpatient (CLI) | payer MEDICARE, SELFPAY ==
[2025-07-26] MEDS: COSYNTROPIN 0.25 MG/ML VIAL IM (08:45)
[2025-07-26 09:02] LABS: Anion Gap 5 mmol/L (4-12); Blood Urea Nitrogen 14 mg/dL (7-17); Calcium 9.8 mg/dL (8.4-10.2); Carbon Dioxide 28 mmol/L (22-30); Chloride 100 mmol/L (98-107); Estimated Glomerular Filt Rate > 60; Glucose 86 mg/dL (65-110); Potassium 4.6 mmol/L (3.4-5.0); Sodium 133 mmol/L (137-145)
[2025-07-26 10:39] LABS: Cortisol 60 Minute 23.30 ug/dL
== END 2025-07-26 08:19 | disposition home or self-care (01) ==
PROVIDERS: PCP Internal Medicine; Visit Provider Internal Medicine Nephrology
DX: E87.1 Hypo-osmolality and hyponatremia (principal)
CPT/HCPCS: 36415; 80048; 82533; 96372; J0834

== ENCOUNTER 2025-08-19 12:50 | Outpatient (CLI) | payer MEDICARE, SELFPAY ==
--- NOTE | ~2025-08-19 | XR_ITS ---
EXAMINATION: XR chest 2V, 08/19/2025 13:04 CDT HISTORY: E87.1 - Hypo-osmolality and hyponatremia COMPARISON: No comparisons available. Technique: 2 views obtained. Findings: The lungs are clear, no effusion. No pneumothorax. Heart is normal size. Mediastinal and hilar contours are within normal limits. Bony thorax no acute abnormality. Impression: No acute cardiopulmonary abnormality. Reviewed, dictated and finalized at location P. Impression: No acute cardiopulmonary abnormality.
--- NOTE | ~2025-08-19 | XR_ITS ---
XR_CERV2-3V_CR Indication: cervical radicular pain Comparison: None Findings: Anterior fixation of C5, C6 and C7, no fracture is identified. Moderate loss of disc height C4-5 C5-6. Soft tissues unremarkable Impression: No acute abnormality. Reviewed, dictated and finalized at location P. Impression: No acute abnormality.
--- OUTSIDE RECORDS SUMMARY | 2025-08-19 14:33 | XMS_ITS | Clinical Summary ---
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 surgeries X2 CHOLECYSTECTOMY unknown date Medical History [...] on file Legal Sex Female 1:01 PM LEHR LOADER Gender Identity Not on file Sexual Orientation Not on file Obstetrics History Last Filed Vital Signs Vital Sign Reading Time Taken Comments Blood Pressure 141/67 09/12/2024 9:00 AM LEHR LOADER Pulse 89 09/12/2024 9:00 AM LEHR LOADER Temperature 37 C (98.6 F) 09/12/2024 8:08 AM LEHR LOADER Respiratory Rate 20 09/12/2024 8:08 AM LEHR LOADER Oxygen Saturation 100% 09/12/2024 9:00 AM LEHR LOADER Inhaled Oxygen Concentration - - Weight 69.4 kg (153 lb) 12/13/2024 9:38 AM LEHR LOADER Height 152.4 cm (5') 12/13/2024 9:38 AM LEHR LOADER Body Mass Index 29.88 12/13/2024 9:38 AM LEHR LOADER Plan of Treatment Health Maintenance Due Date Last Done Comments Breast Cancer Screening-Mammogram 1958 Colon Cancer Screening-Colonoscopy 1958 Depression Screening 1958 Hepatitis C Screening 1958 Osteoporosis Screening-Bone Density Scan 1958 Hepatitis B Screening 1976 Pneumococcal vaccine 65+ (1 of 1 - PCV) 2008 DTaP/Tdap/Td Vaccine (2 - Td or Tdap) 02/07/202207/2012 Well Visit 65+ 2023 Covid-19 Vaccine ( - season) 2025 11/30/2021, 01/27/2021, 01/06/2021 Influenza Vaccine (#1) 2025 09/12/2024, 2016 Fall Risk Assessment 09/12/2025 09/12/2024 Zoster Vaccine Completed 04/24/2019, 12/29, 12/27/2016 Medical Devices Implanted Type Area Pay Clerk Device Identifier Shelf Expiration Date Model / Serial / Lot Ar[employer]rex Inc Graft Bone Filler Cortical Cancellous Cyro Freezer Arthrocell 5cc Putty Abs-2008-05 - [id number] - [id number] Implanted:Qty: 1 on 09/11/2024 by Francisco Rowan Jr., MD at [facility] Left: Ankle Ar[employer]rex Inc 06/20/2026 ABS-2008- 5 / [id number] / [id number] Ar[employer]rex Inc Low Profile Screws 6.7mm 75mm 28mm Self Drill Self Tap Cannulated Py-6113-9617 - [id number] Implanted:Qty: 1 on 09/11/2024 by Francisco Rowan Jr., MD at [facility] Left: Ankle Ar[employer]rex Inc AR-8967-28 75 / / Ar[employer]rex Inc Low Profile Screws 4.5mm 38mm Self Drill Self Tap Cannulated Hex Bp-0918-25da - [id number] Implanted:Qty: 1 on 09/11/2024 by Francisco Rowan Jr., MD at [facility] Left: Ankle Ar[employer] Inc AR-8945-38 PT / / Ar[employer] Inc Low Profile Screws 4.5mm 34mm Self Drill Self Tap Cannulated Hex Sw-9666-71dr - [id number] Implanted:Qty: 1 on 09/11/2024 by Francisco Rowan Jr., MD at [facility] Left: Ankle [employer]rex Inc AR-8945-34 PT / / Ar[employer] Inc Staple Compression Supermx [id number] Nitinol An-3109irka-3814 - [id number] Implanted:Qty: 1 on 09/11/2024 by Francisco Rowan Jr., MD at [facility] Left: Ankle Ar[employer]rex Inc [id number] 04/29/2029 AR-8719MXD S-1818 / / [id number] Ar[employer]rex Inc Staple Compression Supermx 81e45cy Nitinol Mn-6496dqns-5327 - [id number] Implanted:Qty: 1 on 09/11/2024 by Francisco Rowan Jr., MD at [facility] Left: Ankle Ar[employer]rex Inc [id number] 04/29/2029 AR-8719MXD S-1818 / / [id number] Ar[employer]rex Inc Staple Compression Supermx 01y04nf Nitinol Ht-9503cjjb-9338 - [id number] Implanted:Qty: 1 on 09/11/2024 by Francisco Rowan Jr., MD at [facility] Left: Ankle [employer] Inc [id number] 04/29/2029 AR-8719MXD S-2020 / / [id number] Insurance MEDICARE [facility] MEDICARE [facility] Advance Directives For more information, please contact: [phone] * Full Code (Latest Code Status on File) Date Activated Date Inactivated Comments 09/11/2024 1:33 PM 09/12/2024 3:03 PM Care Teams Fabric And Accessories Estimator Relationship Specialty Start Date End Date Jamar Hastings MD PCP - General 12/04/10
== END 2025-08-19 12:51 | disposition home or self-care (01) ==
LOC: CHSIMG 12:55
PROVIDERS: PCP Internal Medicine; Visit Provider Nurse Practitioner Family
DX: E87.1 Hypo-osmolality and hyponatremia (principal); G47.30 Sleep apnea, unspecified; M54.12 Radiculopathy, cervical region
CPT/HCPCS: 71046; 72040

== ENCOUNTER 2025-08-27 09:07 | Outpatient (CLI) | payer MEDICARE, SELFPAY ==
--- NOTE | ~2025-08-27 | XR_ITS ---
EXAMINATION: XR shoulder RT min 2V, 08/27/2025 10:00 CDT HISTORY: M25.511 - Pain in right shoulder COMPARISON: No comparisons available. Findings: No acute fracture or malalignment. Moderate to moderate to severe degenerative changes Soft tissues unremarkable. Impression: No acute fracture or malalignment. Reviewed, dictated and finalized at location P. Impression: No acute fracture or malalignment.
--- OUTSIDE RECORDS SUMMARY | 2025-08-27 09:49 | XMS_ITS | Clinical Summary ---
Author Organization [facility] Address [address] [place] [address] Phone Care Team Providers Care Construction Project Assistant Name Role Phone Jamar Hastings MD Primary Care Provider [phone] Social History Tobacco Use Types Packs/Day Years [...] [facility] Care Teams Construction Project Assistant Relationship Specialty Start Date End Date Jamar Hastings MD [address] [place] [address] PCP - General Internal Medicine 05/10/23
--- OUTSIDE RECORDS SUMMARY | 2025-08-27 09:49 | XMS_ITS | Clinical Summary ---
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 Gender Identity Not on file Sexual Orientation Not on file Obstetrics History Last Filed Vital Signs Vital Sign Reading Time Taken Comments Blood Pressure 141/67 09/12/2024 9:00 AM 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 Pulse 89 09/12/2024 9:00 AM 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 Temperature 37 C (98.6 F) 09/12/2024 8:08 AM 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 Respiratory Rate 20 09/12/2024 8:08 AM 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 Oxygen Saturation 100% 09/12/2024 9:00 AM 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 Inhaled Oxygen Concentration - - Weight 69.4 kg (153 lb) 12/13/2024 9:38 AM 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 Height 152.4 cm (5') 12/13/2024 9:38 AM 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 Body Mass Index 29.88 12/13/2024 9:38 AM 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 Plan of Treatment Health Maintenance Due Date [...] 12/29, 12/27/2016 Medical Devices Implanted Type Area Speech Language Pathology Assistant Device Identifier Shelf Expiration Date Model / Serial / Lot Arthrex Inc Graft Bone Filler Cortical Cancellous Cyro Freezer Arthrocell 5cc Putty Abs-2008-05 - [id number] - [id number] Implanted:Qty: 1 on 09/11/2024 by Francisco Rowan Jr., MD at [facility] Left: Ankle [employer]rex Inc 06/20/2026 ABS-2008- 5 / [id number] / [id number] Ar[employer]rex Inc Low Profile Screws 6.7mm 75mm 28mm Self Drill Self Tap Cannulated Sh-1217-0585 - [id number] Implanted:Qty: 1 on 09/11/2024 by Francisco Rowan Jr., MD at [facility] Left: Ankle [employer]rex Inc AR-8967-28 75 / / Ar[employer]rex Inc Low Profile Screws 4.5mm 38mm Self Drill Self Tap Cannulated Hex Ap-3176-21mq - [id number] Implanted:Qty: 1 on 09/11/2024 by Francisco Rowan Jr., MD at [facility] Left: Ankle Ar[employer]rex Inc AR-8945-38 PT / / Ar[employer]rex Inc Low Profile Screws 4.5mm 34mm Self Drill Self Tap Cannulated Hex Dw-9896-98ut - [id number] Implanted:Qty: 1 on 09/11/2024 by Francisco Rowan Jr., MD at [facility] Left: Ankle [employer]rex Inc AR-8945-34 PT / / Ar[employer]rex Inc Staple Compression Supermx [id number] Nitinol Tu-3245unef-3160 - [id number] Implanted:Qty: 1 on 09/11/2024 by Francisco Rowan Jr., MD at [facility] Left: Ankle [employer] Inc [id number] 04/29/2029 AR-8719MXD S-1818 / / [id number] Ar[employer]rex Inc Staple Compression Supermx 71h03pb Nitinol Qd-8340wnfv-3998 - [id number] Implanted:Qty: 1 on 09/11/2024 by Francisco Rowan Jr., MD at [facility] Left: Ankle Ar[employer]rex Inc [id number] 04/29/2029 AR-8719MXD S-1818 / / [id number] Ar[employer]rex Inc Staple Compression Supermx [id number] Nitinol Os-7979cizi-5160 - [id number] Implanted:Qty: 1 on 09/11/2024 by Francisco Rowan Jr., MD at [facility] Medicine Left: Ankle [employer] Inc [id number] 04/29/2029 AR-8719MXD S-2020 / / [id number] Insurance MEDICARE [facility] MEDICARE [facility] Advance Directives For more information, please contact: [phone] * Full Code (Latest Code Status on File) Date Activated Date Inactivated Comments 09/11/2024 1:33 PM 09/12/2024 3:03 PM Care Teams Security Intelligence Analyst Relationship Specialty Start Date End Date Jamar Hastings MD PCP - General 12/04/10
--- OUTSIDE RECORDS SUMMARY | 2025-08-27 09:49 | XMS_ITS | Clinical Summary ---
Author Organization [facility] Address [address] [place] [address] Phone Care Team Providers Care Insulator Tester Name Role Phone Jamar Hastings MD Primary Care Provider [phone] Allergies Active Allergy Reactions Criticality Noted Date [...] series) 20[address] Medical Devices Implanted Type Area [address] Bailiff Device Identifier Shelf Expiration Date Model / Serial / Lot Cage Elevate X-Dunia 28x9mm [id number] - [id number] Implanted:Qty: 1 on 05/21/2019 by Manjeet Marie MD at [facility] N/A: Spine Lumbar [employer]ANE[employer] 03/02/2027 [id number] / / [id number] Sealant Floseal 5ml [id number] - [id number] Implanted:Qty: 1 on 05/21/2019 by Manjeet Marie MD at [facility] Sealant N/A: Spine Lumbar [employer]OSS- [employer] 10/11/2020 [id number] / / [id number] Lucy Dbm 8x10cm [id number] - [id number] Implanted:Qty: 1 on 05/21/2019 by Manjeet Marie MD at [facility] N/A: Spine Lumbar [employer] 12/25/2021 [id number] / [id number] / Matrix Dura Regenerative Durepair 1in [id number] - [id number] Implanted:Qty: 1 on 05/21/2019 by Manjeet Marie MD at [facility] N/A: Spine Lumbar [employer] 03/30/2021 [id number] / / [id number] Screw Set Implanted:Qty: 6 on 05/21/2019 by Manjeet Marie MD at [facility] N/A: Spine Lumbar [id number] / / Description:item add c.s load [id number] Screw 7.5x40mm Implanted:Qty: 3 on 05/21/2019 by Manjeet Marie MD at [facility] N/A: Spine Lumbar [id number] / / Description:item add c.s load [id number] Screw 6.5x40mm Implanted:Qty: 3 on 05/21/2019 by Manjeet Marie MD at [facility] N/A: Spine Lumbar [id number] / / Description:item add c.s load [id number] Screw 6.5x40mm Implanted:Qty: 3 on 05/21/2019 by Manjeet Marie MD at [facility] N/A: Spine Lumbar [id number] / / Description:item add c.s load [id number] Donte 80mm Implanted:Qty: 1 on 05/21/2019 by Manjeet Marie MD at [facility] N/A: Spine Lumbar [id number] / / Description:item add c.s load [id number] Donte 50mm Implanted:Qty: 1 on 05/21/2019 by Manjeet Marie MD at [facility] N/A: Spine Lumbar [id number] / / Description:item add c.s load [id number] Insurance [facility] BLUE ACCESS/TRUE BLUE PPO Advance Directives For more information, please contact: [phone] * Full Code (Latest Code Status on File) Date Activated Date Inactivated Comments 05/21/2019 5:01 PM 05/23/2019 5:35 PM Care Teams Insulator Tester Relationship Specialty Start Date End Date Jamar Hastings MD [address] [place] [address] PCP - General Internal Medicine 04/20/19
--- OUTSIDE RECORDS SUMMARY | 2025-08-27 09:49 | XMS_ITS | Clinical Summary ---
Author Organization [facility] Address [address] [place] [address] Care Team Providers Care Senior Editor Name Role Phone Unavailable Primary Care Provider Unavailabl e Source Comments [facility],non-owned Affiliates and Associated Physician Practices is amultiple site organization consisting of ambulatory clinics and hospital sitesin [place], [place], [place] and [place]. This disclosure is being madepursuant to the Care Everywhere program and may not contain all information available regarding this patient. 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
[2025-08-27 12:37] LABS: Anion Gap 10 mmol/L (4-12); Blood Urea Nitrogen 15 mg/dL (7-17); Calcium 10.3 mg/dL (8.4-10.2); Carbon Dioxide 27 mmol/L (22-30); Chloride 101 mmol/L (98-107); Estimated Glomerular Filt Rate > 60; Glucose 89 mg/dL (65-110); Osmolality Calculated 285 mOsm/kg (285-295); Potassium 5.3 mmol/L (3.4-5.0); Sodium 138 mmol/L (137-145)
== END 2025-08-27 09:08 | disposition home or self-care (01) ==
PROVIDERS: PCP Orthopaedic Surgery; Visit Provider Internal Medicine Nephrology
DX: E87.1 Hypo-osmolality and hyponatremia (principal); M25.511 Pain in right shoulder
CPT/HCPCS: 36415; 73030; 80048

== ENCOUNTER 2025-10-01 10:39 | Outpatient (CLI) | payer MEDICARE, SELFPAY ==
[2025-10-01 11:26] LABS: Albumin Level 4.6 g/dL (3.5-5.1); Anion Gap 11 mmol/L (4-12); Blood Urea Nitrogen 16 mg/dL (7-17); Calcium 10.1 mg/dL (8.4-10.2); Carbon Dioxide 28 mmol/L (22-30); Chloride 98 mmol/L (98-107); Estimated Glomerular Filt Rate 57; Glucose 96 mg/dL (65-110); Osmolality Calculated 285 mOsm/kg (285-295); Potassium 4.8 mmol/L (3.4-5.0); Sodium 137 mmol/L (137-145)
[2025-10-02 10:09] LABS: Calcium, Urine 3.4 mg/dL (Not Estab.)
[2025-10-02 10:43] LABS: Parathyroid Intact 49.3 pg/mL (14.5-75.2)
[2025-10-03 15:09] LABS: Osmolality, Urine 570 mOsmol/kg (.)
== END 2025-10-01 10:40 | disposition home or self-care (01) ==
LOC: CHSLAB 10:40
PROVIDERS: PCP Internal Medicine; Visit Provider Internal Medicine Nephrology
DX: E87.5 Hyperkalemia (principal); E83.52 Hypercalcemia
CPT/HCPCS: 36415; 80069; 82340; 82570; 83935; 83970; 84133